=== PATIENT | female | born 1950 | race Caucasian/White ===

== ENCOUNTER → 2017-11-15 16:27 | Outpatient (CLI) | payer MEDICARE, OTHER, SELFPAY ==
--- NOTE | 2017-11-15 13:45 | MASS_PTH ---
PATIENT: ESTEFANIA COWAN LOC: [facility] U#:[id number] AGE/SX: 74/F ROOM: RE11/15/[address]: Dr. Antonio Robin MD : [id number] BED: DIS: SPEC #: [id number] RECD: 11/15/17 15:33 STATUS: STEFFI SAMMI #: [id number] MARCELLA: 11/15/17 13:[address]: Antonio Robin DEPT: SURGICAL PATHOLOGY RECD BY: Kalyan Bailey ENTERED: 11/18/17 12:29 SP TYPE: Mass OTHR DR: BLANCA Tissues: Wrist, NOS Procedures: Surgery Specimen Level IV HEADER OPERATION: Cyst excision, right wrist PRE-OP DIAGNOSIS: Right wrist mass TISSUE SUBMITTED: Mass, right wrist MICROSCOPIC DIAGNOSIS Mass, right wrist, excision: Consistent with ganglion cyst. Detached piece of reactive synovial tissue with focal calcification. SJ:rossi 11/19/17 MICROSCOPIC DESCRIPTION Slides are reviewed. GROSS DESCRIPTION Received is one container labeled with the patient's name and not further designated. The specimen consists of two pieces of samuel-white to brown soft tissue measuring in aggregate 2 x 1.5 x 0.3 cm. The specimen is totally submitted in one cassette. / SJ:rossi 11/18/17 TC:5 CPT: 39871
== END ==
PROVIDERS: Visit Provider Orthopaedic Surgery
DX: R22.31 Localized swelling, mass and lump, right upper limb (principal)
CPT/HCPCS: 88305

== ENCOUNTER → 2018-05-06 07:53 | Outpatient (CLI) | payer MEDICARE, OTHER, SELFPAY ==
--- NOTE | 2018-05-06 08:04 | CDU_ITS ---
Reason For Study: Atheroclerosis Rt. Velocities/BP Lt. Velocities/BP Prox CCA 149/36.3 cm/sec. Prox CCA 91.3/18.7 cm/sec. Mid CCA 120/24.6 cm/sec. Mid CCA 86.4/25.5 cm/sec. Dist CCA 129/27.5 cm/sec. Dist CCA 143/35.4 cm/sec. Prox ICA 119/30.4 cm/sec. Prox ICA 149/27.5 cm/sec. Mid ICA 133/37.3 cm/sec. Mid ICA 138/31.4 cm/sec. Dist ICA 142/41.3 cm/sec. Dist ICA 124/26.5 cm/sec. Rt. ICA/CCA = 1.10. Lt. ICA/CCA = 1.63. Prox ECA 125/17.7 cm/sec. Prox ECA 39.3/9.97 cm/sec. Rt. Vert. 117/25.5 cm/sec. Lt. Vert. 70.4/14.1 cm/sec. Right Extracranial There is homogeneous, smooth atherosclerotic plaque noted in the right common carotid artery. There is heterogeneous, irregular atherosclerotic plaque noted in the right internal carotid artery. There is heterogeneous, smooth atherosclerotic plaque noted in the right external carotid artery. Antegrade flow is noted in the right vertebral artery. Left Extracranial There is heterogeneous, irregular atherosclerotic plaque noted in the left common carotid artery. There is heterogeneous, smooth atherosclerotic plaque noted in the left internal carotid artery. The left external carotid artery is not well visualized. Antegrade flow is noted in the left vertebral artery. Procedure Carotid Duplex [id number]. Exam performed in department. Interpretation Summary Moderate (50-69%) stenosis right extracranial internal carotid. Moderate (50-69%) stenosis left extracranial internal carotid. Flow within the vertebral arteries is antegrade bilaterally. Ordering Physician: Pedro Gardiner Referring Physician: Ge Montero MD Performed By: Ozzie Dickens RVT and Student
--- NOTE | 2018-05-06 08:05 | AAVD_ITS ---
Reason For Study: Atherosclerosis Aorta Measurements Aorta Doppler Measurements Proximal aorta measures1.07 x 1.15cm. in cross- Peak systolic flow velocities within the proximal sectional axis. aorta measure 67.5 cm/sec. Proximal aorta measures1.08cm. in longitudinal Peak systolic flow velocities within the mid axis. aorta measure 67.5 cm/sec. Mid aorta measures0.89 x 0.89cm. in cross- Peak systolic flow velocities within the distal sectional axis. aorta measure 127 cm/sec. Mid aorta measures0.87cm. in longitudinal axis. Distal aorta measures1.01 x 1.03cm. in cross- sectional axis. Distal aorta measures1.04cm. in longitudinal axis. Left Iliac Artery Left iliac artery measures 0.48 x 0.59 cm. in the cross-sectional axis. Left iliac artery measures 0.50 cm. in the longitudinal axis. Peak systolic velocity in the right proximal iliac artery measures 150. Peak systolic velocity in the right mid iliac artery measures 234. Right Iliac Artery Right iliac artery measures 0.51 x 0.51 cm. in the cross-sectional axis. Right iliac artery measures 0.51 cm. in the longitudinal axis. Peak systolic velocity in the right proximal iliac artery measures 154. Peak systolic velocity in the right mid iliac artery measures 316. Procedure Aorta IVC Iliac vasculature or bypass grafts [id number]. Exam performed in department. Interpretation Summary 1. Aorta no aneurysm or stenosis seen. 2. Right MAMADOU severe stenosis. 3. Left iliac mild to moderate stenosis. Ordering Physician: Pedro Gardiner Referring Physician: Ge Montero MD Performed By: Ozzie Dickens RVT and Student
--- NOTE | 2018-05-06 08:05 | ADU_ITS ---
Reason For Study: Atherosclerosis Right Velocities Left Velocities Ext. Iliac Artery, dist = 182 cm./sec. Ext Iliac Artery, dist = 219 cm./sec. Common Femoral Artery, mid = 174 cm./sec. [employer] Inflow artery = 221 cm/sec Supf Femoral Artery, prox = 114 cm./sec. Prox Anast = 223 cm/sec Supf Femoral Artery, mid = 413 cm./sec. Prox Graft = 75.6 cm/sec Supf Femoral Artery, dist. = 90.4 cm./sec. Mid Graft = 66.8 cm/sec Profunda Femoral Artery = 366 cm./sec. Distal Graft = 69.2 cm/sec Popliteal Artery, prox. = 50.3 cm./sec. Disal Anast = 64.5 cm/sec. Popliteal Artery, mid = 48.3 cm./sec. Profunda Femoral Artery = 170 cm./sec. Popliteal Artery, dist = 63.3 cm./sec. Pop A Outflow artery = 138 cm/sec. Post. Tibial Artery, prox = 50.3 cm./sec. Popliteal Artery, mid = 140 cm./sec. Post. Tibial Artery, mid = 60.5 cm./sec. Popliteal Artery, distal = 94.3 cm./sec. Post. Tibial Artery, dist = 20.2 cm./sec. Post. Tibial Artery, prox = 73.9 cm./sec. Peroneal Artery, prox = 38.8 cm./sec. Post Tibial Artery, mid = 79.6 cm./sec. Peroneal Artery, mid = 22.6 cm./sec. Post Tibial Artery, dist. = 79.6 cm./sec. Peroneal Artery,dist = 18.3 cm./sec. Peroneal Artery, prox = 46 cm./sec. Ant. Tibial Artery, prox = 44 cm./sec. Peroneal Artery, mid = 45.6 cm./sec. Ant. Tibial Artery, mid = 38.8 cm./sec. Peroneal Artery,dist. = 36.9 cm./sec. Ant. Tibial Artery, dist = 36.7 cm./sec. Ant.Tibial Artery, prox = 103 cm./sec. Ant Tibial Artery, mid = 59.7 cm./sec. Ant. Tibial Artery, distal = 53.8 cm./sec. Procedure Exam performed in department. Interpretation Summary 1 .Right SFA severe stenosis and biphasic below throughout. 2. Left no stenosis and triphasic flow throughout. Ordering Physician: Pedro Gardiner Referring Physician: Ge Montero MD Performed By: Ozzie Dickens RVT and Student
--- NOTE | 2018-05-07 12:06 | LEAS ---
Arterial Study - Arterial Study Arterial Study: Date of scan 05/06/[address] Gardiner History: Patient with a history of left femoropopliteal bypass graft. Interpretation: Right lower extremity with slightly decreased waveform noted at the ankle duplex shows more of a biphasic waveform noted at the ankle with, LAST is 0.63 the PT and 0.67 of the DP. Next Left lower extremity with a normal pulsatile waveform noted at the ankle. Duplex shows triphasic flow the PT with an LAST 1.07 and biphasic flow noted in the DP with an LAST 0.91. Impression: 1. Right lower extremity with moderate arterial occlusive disease with an LAST 0.67. 2. Left lower extremity with no evidence of significant arterial occlusive disease at rest with an LAST 1.07
== END ==
PROVIDERS: Family Provider Family Medicine; PCP Family Medicine; Referring Provider Surgery Vascular Surgery; Visit Provider Surgery Vascular Surgery
DX: I70.213 Atherosclerosis of native arteries of extremities with intermittent claudication, bilateral legs (principal); I65.23 Occlusion and stenosis of bilateral carotid arteries; I77.1 Stricture of artery; I25.10 Atherosclerotic heart disease of native coronary artery without angina pectoris; E78.00 Pure hypercholesterolemia, unspecified; I10 Essential (primary) hypertension; M19.90 Unspecified osteoarthritis, unspecified site; Z87.891 Personal history of nicotine dependence
CPT/HCPCS: 93880; 93922; 93925; 93978

== ENCOUNTER → 2019-07-07 07:48 | Outpatient (CLI) | payer MEDICARE, OTHER, SELFPAY ==
--- NOTE | 2019-07-07 07:52 | CDU_ITS ---
Reason For Study: carotid stenosis Rt. Velocities/BP Lt. Velocities/BP Prox CCA 108.6/22.6 cm/sec. Prox CCA 93.7/23.4 cm/sec. Mid CCA 113.9/25.2 cm/sec. Mid CCA 83.8/22.3 cm/sec. Dist CCA 96.9/26.5 cm/sec. Dist CCA 98.1/27.8 cm/sec. Prox ICA 73.4/20.0 cm/sec. Prox ICA 162.9/40.7 cm/sec. Mid ICA 139.9/36.9 cm/sec. Mid ICA 132.1/40.7 cm/sec. Dist ICA 137.5/37.1 cm/sec. Dist ICA 137.5/40.7 cm/sec. Rt. ICA/CCA = 1.2. Lt. ICA/CCA = 1.9. Prox ECA 142.5/13.4 cm/sec. Prox ECA 42.1/9.1 cm/sec. Rt. Vert. 50.4/10.7 cm/sec. Lt. Vert. 91.9/15.2 cm/sec. Right Extracranial There is homogeneous, smooth atherosclerotic plaque noted in the right common carotid artery. There is heterogeneous, irregular atherosclerotic plaque noted in the right internal carotid artery. There is heterogeneous, irregular atherosclerotic plaque noted in the right external carotid artery. Antegrade flow is noted in the right vertebral artery. Left Extracranial There is heterogeneous, irregular atherosclerotic plaque noted in the left common carotid artery. There is heterogeneous, irregular atherosclerotic plaque noted in the left internal carotid artery. The left external carotid artery is not well visualized. Antegrade flow is noted in the left vertebral artery. Procedure Carotid Duplex [id number]. The exam was diagnostic. Exam performed in department. Interpretation Summary Moderate (50-69%) stenosis right extracranial internal carotid. Moderate (50-69%) stenosis left extracranial internal carotid. Flow within the vertebral arteries is antegrade bilaterally. Ordering Physician: Pedro Gardiner Performed By: Giacomo Dickens RVT
--- NOTE | 2019-07-07 07:52 | ART_ITS ---
Reason For Study: atherosclerosis Procedure A bilateral lower extremity continuous wave Doppler with analog waveform analysis and ankle brachial indexes. Left Segmental Pressures Left brachial= 137mmHg. Left posterior tibial artery = 140mmHg. Left dorsalis pedis artery = 126mmHg. The left dorsalis pedis waveforms are triphasic. The left posterior tibial artery waveforms are triphasic. Right Segmental Pressures Right brachial= 130mmHg. Right posterior tibial artery = 79mmHg. Right dorsalis pedis artery = 83mmHg. The right posterior tibial artery waveforms are biphasic. The right dorsalis pedis waveforms are biphasic. Indices The right ankle brachial index by the dorsalis pedis is .61. The right ankle brachial index by the posterior tibial artery is .58. The left ankle brachial index by the dorsalis pedis is .92. The left ankle brachial index by the posterior tibial artery is 1.02. Interpretation Summary 2. right leg moderate disease and biphasic flow and LAST 0.61 2. Left normal with triphasic flow and LAST 1.02. Ordering Physician: Pedro Gardiner Performed By: JORDAN PIERSON Laura
--- NOTE | 2019-07-07 07:52 | ADUL_ITS ---
Reason For Study: atherosclerosis Right Velocities Ext. Iliac Artery, dist = 214.1 cm./sec. Common Femoral Artery, mid = 170 cm./sec. Supf Femoral Artery, prox = 198.5 cm./sec. Supf Femoral Artery, mid = 276.8 cm./sec. Supf Femoral Artery, dist. = 65.8 cm./sec. Profunda Femoral Artery = 299.3 cm./sec. Popliteal Artery, prox. = 62.2 cm./sec. Popliteal Artery, mid = 42.5 cm./sec. Popliteal Artery, dist = 49.9 cm./sec. Post. Tibial Artery, prox = 36.4 cm./sec. Post. Tibial Artery, mid = 68.3 cm./sec. Post. Tibial Artery, dist = 20.4 cm./sec. Peroneal Artery, prox = 41.3 cm./sec. Peroneal Artery, mid = 30.2 cm./sec. Peroneal Artery,dist = 21.6 cm./sec. Ant. Tibial Artery, prox = 47.4 cm./sec. Ant. Tibial Artery, mid = 29.0 cm./sec. Ant. Tibial Artery, dist = 51.0 cm./sec. Procedure The exam was diagnostic. Exam performed in department. Interpretation Summary 1. Right SFa moderate to severe stenosis with biphasic flow noted below this level. Ordering Physician: Pedro Gardiner Performed By: Giacomo Dickens RVT
--- NOTE | 2019-07-07 07:53 | AAVD_ITS ---
Reason For Study: HTN, atherosclerosis Aorta Measurements Aorta Doppler Measurements Proximal aorta measures.94 x 1.08cm. in cross- Peak systolic flow velocities within the proximal sectional axis. aorta measure 72.1 cm/sec. Proximal aorta measures.93cm. in longitudinal Peak systolic flow velocities within the mid aorta axis. measure 130.8 cm/sec. Mid aorta measures.74 x .79cm. in cross-sectional Peak systolic flow velocities within the distal axis. aorta measure 130.8 cm/sec. Mid aorta measures.71cm. in longitudinal axis. Distal aorta measures.72 x .77cm. in cross- sectional axis. Distal aorta measures.71cm. in longitudinal axis. Left Iliac Artery Left iliac artery measures .51 x .56 cm. in the cross-sectional axis. Left iliac artery measures .52 cm. in the longitudinal axis. Peak systolic velocity in the left iliac artery measures 234.8 cm/sec. Right Iliac Artery Right iliac artery measures .48 x .42 cm. in the cross-sectional axis. Right iliac artery measures .51 cm. in the longitudinal axis. Peak systolic velocity in the right iliac artery measures 119.8 cm/sec. Procedure The exam was diagnostic. Exam performed in department. Interpretation Summary 1. No aortic aneurysm or stenosis. 2. Right iliac normal 3. Left common iliac with moderate stenosis. Ordering Physician: Pedro Gardiner Performed By: Giacomo Dickens RVT
== END ==
PROVIDERS: Family Provider Family Medicine; PCP Family Medicine; Referring Provider Surgery Vascular Surgery; Visit Provider Surgery Vascular Surgery
DX: I70.213 Atherosclerosis of native arteries of extremities with intermittent claudication, bilateral legs (principal); I77.1 Stricture of artery; I65.23 Occlusion and stenosis of bilateral carotid arteries; I25.10 Atherosclerotic heart disease of native coronary artery without angina pectoris; Z87.891 Personal history of nicotine dependence; E78.00 Pure hypercholesterolemia, unspecified; I10 Essential (primary) hypertension; M19.90 Unspecified osteoarthritis, unspecified site
CPT/HCPCS: 93880; 93922; 93926; 93978

== ENCOUNTER → 2020-03-31 08:07 | Outpatient (CLI) | payer MEDICARE, OTHER, SELFPAY ==
--- NOTE | 2020-03-31 08:12 | AAVD_ITS ---
Reason For Study: Atherosclerosis Aorta Measurements Aorta Doppler Measurements Proximal aorta measures0.98 x 0.96cm. in cross- Peak systolic flow velocities within the proximal sectional axis. aorta measure 56.4 cm/sec. Proximal aorta measures0.92cm. in longitudinal Peak systolic flow velocities within the mid aorta axis. measure 58.1 cm/sec. Mid aorta measures0.83 x 0.84cm. in cross- Peak systolic flow velocities within the distal sectional axis. aorta measure 94.2 cm/sec. Mid aorta measures0.92cm. in longitudinal axis. Distal aorta measures0.64 x 0.68cm. in cross- sectional axis. Distal aorta measures0.69cm. in longitudinal axis. Left Iliac Artery Left iliac artery measures 0.50 x 0.53 cm. in the cross-sectional axis. Left iliac artery measures 0.52 cm. in the longitudinal axis. Peak systolic velocity in the left iliac artery measures 215.4 cm/sec. Right Iliac Artery Right iliac artery measures 051 x 0.50 cm. in the cross-sectional axis. Right iliac artery measures 0.49 cm. in the longitudinal axis. Peak systolic velocity in the right iliac artery measures 134.4 cm/sec. Procedure Aorta IVC Iliac vasculature or bypass grafts [id number]. Exam performed in department. Interpretation Summary No aortoiliac aneurysm or stenosis. Ordering Physician: Pedro Gardiner Referring Physician: Ge Montero MD Performed By: Rere Miller RVT
--- NOTE | 2020-03-31 08:12 | ADUL_ITS ---
Reason For Study: S/P Angioplasty Right Velocities Ext. Iliac Artery, dist = 111.5 cm./sec. Common Femoral Artery, mid = 182.7 cm./sec. Supf Femoral Artery, prox = 326.8 cm./sec. Supf Femoral Artery, mid = 132.8 cm./sec. Supf Femoral Artery, dist. = 97.4 cm./sec. Profunda Femoral Artery = 400.8 cm./sec. Popliteal Artery, prox. = 89.4 cm./sec. Popliteal Artery, mid = 60.8 cm./sec. Popliteal Artery, dist = 64.1 cm./sec. Post. Tibial Artery, prox = 47.4 cm./sec. Post. Tibial Artery, mid = 48.2 cm./sec. Post. Tibial Artery, dist = 22.3 cm./sec. Peroneal Artery, prox = 31.9 cm./sec. Peroneal Artery, mid = 34.4 cm./sec. Peroneal Artery,dist = 18.3 cm./sec. Ant. Tibial Artery, prox = 44.3 cm./sec. Ant. Tibial Artery, mid = 47.9 cm./sec. Ant. Tibial Artery, dist = 43.6 cm./sec. Procedure Exam performed in department. Interpretation Summary Right leg with no stenosis and triphasic flow noted. Ordering Physician: Pedro Gardiner Referring Physician: Ge Montero MD Performed By: Rere Miller RVT
--- NOTE | 2020-03-31 08:12 | ART_ITS ---
Reason For Study: S/P Angioplasty Procedure A bilateral lower extremity continuous wave Doppler with analog waveform analysis and ankle brachial indexes. Left Segmental Pressures Left brachial= 132mmHg. Left posterior tibial artery = 117mmHg. Left dorsalis pedis artery = 117mmHg. Left digit = 68 mmHg. The left dorsalis pedis waveforms are triphasic. The left posterior tibial artery waveforms are triphasic. Right Segmental Pressures Right brachial= 130mmHg. Right posterior tibial artery = 104mmHg. Right dorsalis pedis artery = 108mmHg. Right digit = 73 mmHg. The right dorsalis pedis waveforms are biphasic. The right posterior tibial artery waveforms are biphasic. Indices The right ankle brachial index by the dorsalis pedis is 0.82. The right ankle brachial index by the posterior tibial artery is 0.79. The right digital-brachial index is 0.55. The left ankle brachial index by the dorsalis pedis is 0.89. The left ankle brachial index by the posterior tibial artery is 0.89. The left digital-brachial index is 0.52. Interpretation Summary Right biphasic flow and left triphasic flow with LAST 0.82 and 0.89. With DBI 0.55 and 0.52. Ordering Physician: Pedro Gardiner Referring Physician: Ge Montero MD Performed By: Rere Miller RVT and Student
== END ==
PROVIDERS: PCP Family Medicine; Referring Provider Surgery Vascular Surgery; Visit Provider Surgery Vascular Surgery
DX: I70.213 Atherosclerosis of native arteries of extremities with intermittent claudication, bilateral legs (principal); I65.23 Occlusion and stenosis of bilateral carotid arteries
CPT/HCPCS: 93922; 93926; 93978

== ENCOUNTER → 2021-05-10 08:33 | Outpatient (CLI) | payer MEDICARE, OTHER, SELFPAY ==
--- NOTE | 2021-05-10 08:38 | AAVD_ITS ---
Reason For Study: S/P Iliac angioplasty/stent Aorta Measurements Aorta Doppler Measurements Proximal aorta measures.96 x .96cm. in cross- Peak systolic flow velocities within the proximal sectional axis. aorta measure 65.3 cm/sec. Proximal aorta measures.94cm. in longitudinal Peak systolic flow velocities within the mid aorta axis. measure 65.3 cm/sec. Mid aorta measures.92 x .92cm. in cross-sectional Peak systolic flow velocities within the distal axis. aorta measure 70.5 cm/sec. Mid aorta measures.92cm. in longitudinal axis. Distal aorta measures.63 x .61cm. in cross- sectional axis. Distal aorta measures.59cm. in longitudinal axis. Left Iliac Artery Left iliac artery measures .47 x .61 cm. in the cross-sectional axis. Left iliac artery measures .47 cm. in the longitudinal axis. Peak systolic velocity in the left iliac artery measures 185.0 cm/sec. Right Iliac Artery Right iliac artery measures .46 x .5 cm. in the cross-sectional axis. Right iliac artery measures .48 cm. in the longitudinal axis. Peak systolic velocity in the right iliac artery measures 122.2 cm/sec. Procedure Aorta IVC Iliac vasculature or bypass grafts [id number]. The exam was diagnostic. Exam performed in department. VL/Abd Aortic/IVC Duplex scan Interpretation Summary No aorta and iliac stenosis or aneurysm. Ordering Physician: Pedro Gardiner Performed By: Giacomo Dickens RVT
--- NOTE | 2021-05-10 08:38 | ART_ITS ---
Reason For Study: atherosclerosis w/claudication, angioplasty Procedure A bilateral lower extremity continuous wave Doppler with analog waveform analysis and ankle brachial indexes. Left Segmental Pressures Left brachial= 152mmHg. Left posterior tibial artery = 143mmHg. Left dorsalis pedis artery = 125mmHg. Left digit = 76 mmHg. The left dorsalis pedis waveforms are biphasic. The left posterior tibial artery waveforms are biphasic. Right Segmental Pressures Right brachial= 146mmHg. Right posterior tibial artery = 79mmHg. Right dorsalis pedis artery = 70mmHg. Right digit = 57 mmHg. The right dorsalis pedis waveforms are monophasic. The right posterior tibial artery waveforms are monophasic. Indices The right ankle brachial index by the dorsalis pedis is .46. The right ankle brachial index by the posterior tibial artery is .52. The right digital-brachial index is .38. The left ankle brachial index by the dorsalis pedis is .82. The left ankle brachial index by the posterior tibial artery is .94. The left digital-brachial index is .5. VL/Ankle Brachial Index Interpretation Summary Right with biphasic flow and LAST 0.52. Left leg triphasic flow and LAST 0.94. Ordering Physician: Pedro Gardiner Performed By: Giacomo Dickens RVT
--- NOTE | 2021-05-10 08:38 | ADUL_ITS ---
Reason For Study: SFA, Popliteal, and TUBE SORTER angioplasty Right Velocities Ext. Iliac Artery, dist = 198.8 cm./sec. Common Femoral Artery, mid = 168.0 cm./sec. Supf Femoral Artery, prox = 284.0 cm./sec. Supf Femoral Artery, mid = 33.6 cm./sec. Supf Femoral Artery, dist. = 69.9 cm./sec. Area in mid/dist SFA with no flow. Branch seen feeding Dist SFA with a velocity of 101.8 cm/s in branch. Profunda Femoral Artery = 411.5 cm./sec. Popliteal Artery, mid = 32.5 cm./sec. Post. Tibial Artery, prox = 28.1 cm./sec. Post. Tibial Artery, mid = 24.8 cm./sec. Post. Tibial Artery, dist = 27.0 cm./sec. Peroneal Artery, prox = 40.2 cm./sec. Peroneal Artery, mid = 30.3 cm./sec. Peroneal Artery,dist = 19.3 cm./sec. Ant. Tibial Artery, prox = 32.5 cm./sec. Ant. Tibial Artery, mid = 55.6 cm./sec. Ant. Tibial Artery, dist = 16.0 cm./sec. /US Art Duplex Unilat Lower Ext Interpretation Summary Right distal femoral occluded. Ordering Physician: Pedro Gardiner Performed By: Giacomo Dickens RVT
--- NOTE | 2021-05-10 08:39 | CDU_ITS ---
Reason For Study: carotid stenosis Rt. Velocities/BP Lt. Velocities/BP Prox CCA 121.7/27.8 cm/sec. Prox CCA 77.7/18.8 cm/sec. Mid CCA 106.0/30.4 cm/sec. Mid CCA 70.4/18.8 cm/sec. Dist CCA 90.4/26.5 cm/sec. Dist CCA 118.3/37.2 cm/sec. Prox ICA 137.5/27.9 cm/sec. Prox ICA 167.4/24.8 cm/sec. Mid ICA 113.8/37.1 cm/sec. Mid ICA 114.8/33.6 cm/sec. Dist ICA 124.7/40.7 cm/sec. Dist ICA 136.7/38.0 cm/sec. Rt. ICA/CCA = 1.3. Lt. ICA/CCA = 2.4. Prox ECA 125.6/14.7 cm/sec. Prox ECA 80.2/15.1 cm/sec. Rt. Vert. 52.2/15.4 cm/sec. Lt. Vert. 81.9/13.8 cm/sec. Right Extracranial There is heterogeneous, irregular atherosclerotic plaque noted in the right common carotid artery. There is heterogeneous, irregular atherosclerotic plaque noted in the right internal carotid artery. There is heterogeneous, irregular atherosclerotic plaque noted in the right external carotid artery. Antegrade flow is noted in the right vertebral artery. Left Extracranial There is heterogeneous, irregular atherosclerotic plaque noted in the left common carotid artery. There is heterogeneous, irregular atherosclerotic plaque noted in the left internal carotid artery. The left external carotid artery is not well visualized. Antegrade flow is noted in the left vertebral artery. Procedure Carotid Duplex [id number]. This is a Carotid Duplex examination using B-mode, color flow and specral Doppler. The exam was diagnostic. Exam performed in department. VL/Carotid Duplex Ultrasound Interpretation Summary Moderate (50-69%) stenosis right extracranial internal carotid. Moderate (50-69 %) stenosis left extracranial internal carotid. Flow within the vertebral arteries is antegrade bilaterally. Ordering Physician: Pedro Gardiner Performed By: Giacomo Dickens RVT
== END ==
PROVIDERS: PCP Family Medicine; Referring Provider Surgery Vascular Surgery; Visit Provider Surgery Vascular Surgery
DX: Z48.812 Encounter for surgical aftercare following surgery on the circulatory system (principal); I70.213 Atherosclerosis of native arteries of extremities with intermittent claudication, bilateral legs; I65.23 Occlusion and stenosis of bilateral carotid arteries
CPT/HCPCS: 93880; 93922; 93926; 93978

== ENCOUNTER → 2022-05-23 | Outpatient (CLI) | payer MEDICARE, OTHER, SELFPAY ==
--- NOTE | 2022-05-23 08:38 | ART_ITS ---
Reason For Study: ANGIOPLASTY Procedure A bilateral lower extremity continuous wave Doppler with analog waveform analysis and ankle brachial indexes. Hx: PT presents with S/P Angioplasty RLE HTN, HLD, Former smoker, LLE Bypass. Left Segmental Pressures Left brachial= 156mmHg. Left posterior tibial artery = 132mmHg. Left dorsalis pedis artery = 134mmHg. Left digit = 85 mmHg. The left posterior tibial artery waveforms are triphasic. The left dorsalis pedis waveforms are biphasic. Right Segmental Pressures Right brachial= 152mmHg. Right posterior tibial artery = 76mmHg. Right dorsalis pedis artery = 73mmHg. Right digit = 54 mmHg. The right posterior tibial artery waveforms are monophasic. The right dorsalis pedis waveforms are monophasic. Indices The right ankle brachial index by the posterior tibial artery is 0.49. The right ankle brachial index by the dorsalis pedis is 0.47. The right digital-brachial index is 0.35. The left ankle brachial index by the posterior tibial artery is 0.85. The left ankle brachial index by the dorsalis pedis is 0.86. The left digital-brachial index is 0.54. VL/Ankle Brachial Index Interpretation Summary Right moderate disease and monophasic flow and LAST 0.49. Left normal at rest wi th triphasic flow and LAST 0,86. Ordering Physician: Pedro Gardiner Referring Physician: Ge Montero MD Performed By: Khari Graham RVT
--- NOTE | 2022-05-23 08:38 | AAVD_ITS ---
Reason For Study: ANGIOPLASTY Aorta Measurements Aorta Doppler Measurements Proximal aorta measures1.26 x 1.26cm. in cross- Peak systolic flow velocities within the proximal sectional axis. aorta measure 56.0 cm/sec. Proximal aorta measures1.35cm. in longitudinal Peak systolic flow velocities within the mid aorta axis. measure 57.8 cm/sec. Mid aorta measures1.24 x 1.27cm. in cross- Peak systolic flow velocities within the distal sectional axis. aorta measure 50.6 cm/sec. Mid aorta measures1.31cm. in longitudinal axis. Distal aorta measures0.93 x 0.96cm. in cross- sectional axis. Distal aorta measures0.99cm. in longitudinal axis. Left Iliac Artery Left iliac artery measures 0.68 x 0.75 cm. in the cross-sectional axis. Left iliac artery measures 0.59 cm. in the longitudinal axis. Peak systolic velocity in the left iliac artery measures 81.4 cm/sec. Right Iliac Artery Right iliac artery measures 0.58 x 0.60 cm. in the cross-sectional axis. Right iliac artery measures 0.71 cm. in the longitudinal axis. Peak systolic velocity in the right iliac artery measures 117.6 cm/sec. Procedure Aorta IVC Iliac vasculature or bypass grafts 09382. The exam was diagnostic. Exam performed in department. VL/Abd Aortic/IVC Duplex scan Interpretation Summary No evidence aortoiliac stenosis or aneurysm. Ordering Physician: Pedro Gardiner Referring Physician: Ge Montero Performed By: Khari Graham, RVT
--- NOTE | 2022-05-23 08:38 | ADUL_ITS ---
Reason For Study: Angioplasty Right Velocities Ext. Iliac Artery, dist = 233.5 cm./sec. Common Femoral Artery, mid = 172.1 cm./sec. Supf Femoral Artery, prox = 238.9 cm./sec. Supf Femoral Artery, mid = 210.9 cm./sec. Area in mid/dist SFA with trickle/stenosis flow. Branchs seen feeding Dist SFA with a velocity of 97.8 cm/s in branch. Supf Femoral Artery, dist. = 62.6 cm./sec. Profunda Femoral Artery = 495.4 cm./sec. Popliteal Artery, mid = 40.9 cm./sec. Post. Tibial Artery, prox = 26.5 cm./sec. Post. Tibial Artery, mid = 15.8 cm./sec. Post. Tibial Artery, dist = 21.5 cm./sec. Peroneal Artery, prox = 32.2 cm./sec. Peroneal Artery, mid = 18.7 cm./sec. Peroneal Artery,dist = 15.1 cm./sec. Ant. Tibial Artery, prox = 18.2 cm./sec. Ant. Tibial Artery, mid = 34.3 cm./sec. Ant. Tibial Artery, dist = 18.7 cm./sec. Procedure The exam was diagnostic. Exam performed in department. /US Art Duplex Unilat Lower Ext Interpretation Summary Probable right mid to distal femoral occlussion and severe profunda stenosis. Ordering Physician: Pedro Gardiner Referring Physician: Ge Montero MD Performed By: Khari Graham RVT
--- NOTE | 2022-05-23 08:39 | CDU_ITS ---
Reason For Study: STENOSIS Rt. Velocities/BP Lt. Velocities/BP Prox CCA 128.0/22.6 cm/sec. Prox CCA 83.0/14.2 cm/sec. Mid CCA 106.7/12.3 cm/sec. Mid CCA 62.1/17.9 cm/sec. Dist CCA 65.8/17.9 cm/sec. Dist CCA 69.5/20.4 cm/sec. Prox ICA 89.1/17.9 cm/sec. Prox ICA 145.4/35.8 cm/sec. Mid ICA 101.6/30.3 cm/sec. Mid ICA 93.0/25.4 cm/sec. Dist ICA 99.7/26.7 cm/sec. Dist ICA 105.8/25.4 cm/sec. Rt. ICA/CCA = 1.0. Lt. ICA/CCA = 2.3. Prox ECA 96.5/5.6 cm/sec. Prox ECA 121.6/32.1 cm/sec. Rt. Vert. 36.3/9.2 cm/sec. Lt. Vert. 72.4/13.1 cm/sec. Right Extracranial There is heterogeneous, irregular atherosclerotic plaque noted in the right common carotid artery. There is heterogeneous, irregular atherosclerotic plaque noted in the right internal carotid artery. There is heterogeneous, irregular atherosclerotic plaque noted in the right external carotid artery. Antegrade flow is noted in the right vertebral artery. Left Extracranial There is heterogeneous, irregular atherosclerotic plaque noted in the left common carotid artery. There is heterogeneous, irregular atherosclerotic plaque noted in the left internal carotid artery. There is heterogeneous, irregular atherosclerotic plaque noted in the left external carotid artery. Antegrade flow is noted in the left vertebral artery. Procedure Carotid Duplex 44693. This is a Carotid Duplex examination using B-mode, color flow and specral Doppler. The exam was diagnostic. Exam performed in department. VL/Carotid Duplex Ultrasound Interpretation Summary Mild (<50%) stenosis right extracranial internal carotid. Moderate (50-69%) inocente nosis left extracranial internal carotid. Flow within the vertebral arteries is antegrade bilaterally. Ordering Physician: Pedro Gardiner Referring Physician: Ge Montero Performed By: Khari Graham RVT
== END | disposition home or self-care (01) ==
LOC: CVS 08:35
PROVIDERS: PCP Family Medicine; Referring Provider Surgery Vascular Surgery; Visit Provider Surgery Vascular Surgery
DX: I65.23 Occlusion and stenosis of bilateral carotid arteries (principal); I70.213 Atherosclerosis of native arteries of extremities with intermittent claudication, bilateral legs; Z48.812 Encounter for surgical aftercare following surgery on the circulatory system
CPT/HCPCS: 93880; 93922; 93926; 93978

== ENCOUNTER 2023-02-01 06:28 | Day surgery (SDC) | payer MEDICARE, OTHER, SELFPAY ==
--- NOTE | 2023-01-31 | COLBX_PTH ---
PATIENT: ESTEFANIA COWAN LOC: EN U#:[id number] AGE/SX: 72/F ROOM: RE02/01/[address]: Dr. Baudilio Pike MD : 1950 BED: DIS: 02/01/2023 SPEC #: [id number] RECD: 02/01/23 10:13 STATUS: STEFFI RELorna #: [id number] MARCELLA: 01/31/23 00:[address]: Baudilio Pike DEPT: SURGICAL PATHOLOGY RECD BY: Orlando Cheng ENTERED: 02/01/23 10:14 SP TYPE: COLON BX OTHR DR: Dr. Ge Montero MD Tissues: Rectum, NOS Procedures: Surgery Specimen Level IV HEADER OPERATION: Colonoscopy with polypectomy PRE-OP DIAGNOSIS: Blood in stool, change in bowel habit TISSUE SUBMITTED: Rectal polyp MICROSCOPIC DIAGNOSIS Rectal polyp, polypectomy: Hyperplastic polyp. SJ:rossi 02/04/2023 MICROSCOPIC DESCRIPTION Slides are reviewed. GROSS DESCRIPTION Received in fixative is one container labeled with the patient's name and designated rectal polyp. The specimen consists of one irregular fragment of light samuel soft tissue that measures 0.5 x 0.3 x 0.1 cm. The specimen is totally submitted in one cassette. / AM:rossi 02/03/2023 TC:1 CPT: 09778
[2023-02-01] VITALS (10 sets, daily range): BP systolic 104–141; BP diastolic 50–62; PULSE 81–92; RESP 16–19; TEMP 36–36.4; O2SAT 92–99; BMI 27.1
[2023-02-01] MEDS: Lactated Ringers 1,000 ML 15 ML IV (06:51)
--- NOTE | 2023-02-01 06:54 | PCM.HP.BLA ---
History and Physical Date of Admission: 02/01/23 Visit Reasons: COLONOSCOPY Chief Complaint: colonoscopy Is patient in pain?: No Allergies No Known Allergies Allergy (Verified 01/22/23 13:58) Medications carvedilol 12.5 mg tablet 12.5 mg PO BID 01/22/23 [History Confirmed 01/22/23] clopidogrel 75 mg tablet 75 mg PO DAILY 01/22/23 [History Confirmed 01/22/23] lisinopril 5 mg tablet 5 mg PO DAILY 01/22/23 [History Confirmed 01/22/23] rosuvastatin 20 mg tablet 20 mg PO DAILY 01/22/23 [History Confirmed 01/22/23] spironolactone 25 mg tablet 25 mg PO DAILY 01/22/23 [History Confirmed 01/22/23] PFS Social History (Updated 01/22/23 @ 13:57 by Gayla Lozano) Smoking Status: Former smoker alcohol intake: never substance use type: does not use HPI HPI HPI: 72-year-old female is being referred by Dr. Ge Montero for surgical consultation regarding possible colonoscopy and a written compromise surgical consult recommendations will return to him. The patient had presented to him on January 14, 2023 with a 1 week history of variable abdominal pain. Noted to be sharp in the right lower quadrant pain it was improving at the time of the visit. Her most recent colonoscopy was 2013. Among her other medications she is on clopidogrel and aspirin therapy States that its been at least 9 years since her previous colonoscopy. She claims that more recently she has had alternating thinner diameter stools occasionally alternating with some more normal stools. She had 1 episode of rectal bleeding with pus she says remotely she was diagnosed as having diverticulitis but she has not had any recent imaging. She is on aspirin and clopidogrel therapy because of peripheral arterial occlusive disease. She says that Dr. Pedro Gardiner would like to do additional surgery on her. She states that her veins will not support the type of leg bypass procedure that he would like to do. The patient did stop smoking a year ago February. She has gained some slight weight. She is denying any current abdominal pain. She is denying any current rectal bleeding. She does state that if she gets a scratch on her arm etc. that she bleeds quite readily ROS General General: No weight change, appetite, fatigue, colon cancer, breast cancer or weakness HEENT HEENT: No difficulty swallowing, eye injury, eye surgery, swollen glands or hoarseness Endo Endocrine: Yes diabetes mellitus; No thyroid disease, thyroid cancer, Hair loss, heat intolerance or cold intolerance Skin Skin: No rash or changing moles Musc Musculoskeletal: Yes back problems, arthritis and rheumatoid arthritis; No gout or joint pain Cardio Cardiovascular: Yes heart disease; No murmur, pacemaker, atrial fibrillation, high blood pressure, heart attack, heart stent, palpitations, shortness of breat with exertion or chest pain Psych Psychiatric: No depression, anxiety or hearing voices Resp Respiratory: No shortness of breath, No sleep apnea, No cough, No COPD, No asthma, No emphysema and No wheezing Gastro Gastrointestinal: Yes abdominal pain, No nausea or vomiting, Yes diarrhea, No constipation, Yes blood in stool, No acid reflux, Yes hemorrhoids, No ulcers, No gallbladder problem and No black,tarry stools Yaniv Hematologic: Yes blood thinners, No blood disorders, No bleeding, No anemia and No blood clots Neuro Neurologic: No system reviewed and no additional complaints, except as documented, No as per HPI, No abnormal gait, No abnormal hearing, No abnormal movements, No abnormal speech, No behavioral changes, No burning sensations, No confusion, No convulsions, No disequilibrium, No dizziness, No localized weakness, No frequent falls, No headache(s), No lack of coordination, No loss of vision, No memory loss, No numbness, No other visual disturbances, No radicular pain, No restless legs, No sensory deficit, No syncope, No tingling, No tremor(s), No weakness and No other Exam Const General: cooperative, comfortable and no acute distress Nutritional Appearance: overweight Orientation: alert, awake and oriented x3 HENMT Head: normal to inspection Eyes General: appearance normal, both eyes and all related structures Neck Neck: normal visual inspection Chest Other: Increased anterior posterior diameter Resp Effort & Inspection: normal respiratory effort Auscultation: clear to auscultation bilaterally Cardio Rate: regular rate Rhythm: regular rhythm GI Other: Soft, slightly distended, nontender, normal bowel sounds, no hepatosplenomegaly or focal mass Musc Cervical Spine: normal cervical lordosis Skin General: no rashes or lesions noted Neuro General: patient alert, patient awake and patient oriented x3 Extrem General: no calf tenderness Psych Appearance: grossly normal Assessment and Plan Assessment and Plan (1) Blood in stool: Status: Acute (2) Change in bowel habit: Status: Acute Plan Change of bowel habit and episode of rectal bleeding. She states that she has had a previous history of colon polyps. No colonoscopy for at least 9 years. I propose for her colonoscopy with possible biopsy or polypectomy as indicated. We will have her hold her clopidogrel for 2 days preprocedure though she can remain on her low-dose aspirin. She is aware of the technique, benefit, risk, alternatives. I suspect that it is possible that her stool caliber change more recently with episode of rectal bleeding and abdominal pain may have been a bout of diverticulitis. Some of those symptoms have improved. I do recommend that we pursue the colonoscopy prior to her pursuing her more advanced vascular surgical intervention. She has had an opportunity ask and questions answered. I appreciate the opportunity of assisting with her surgical care. Copy: Dr. Ge Pike M.D., F.A.C.S I have examined the patient and the H&P has been reviewed. There are no clinical changes since date of exam. Baudilio Pike M.D., F.A.C.S.
[2023-02-01 07:18] LABS: Bedside Glucose 199 mg/dL (74-106)
--- NOTE | 2023-02-01 08:05 | OP.COLON_ITS ---
Patient Name: Liliana Garnett Procedure Date: 02/01/2023 7:27 AM Date of : 1950 Age: 72 Procedure: Colonoscopy Indications: Rectal bleeding Providers: Baudilio Pike MD Patient Profile: This is a 72 year old female. Last Colonoscopy: 10 years ago. Complications: No immediate complications. Procedure: Pre-Anesthesia Assessment: - Prior to the procedure, a History and Physical was performed, and patient medications and allergies were reviewed. The patient's tolerance of previous anesthesia was also reviewed. The risks and benefits of the procedure and the sedation options and risks were discussed with the patient. All questions were answered, and informed consent was obtained. Prior Anticoagulants: The patient has taken Plavix (clopidogrel), last dose was 2 days prior to procedure. ASA Grade Assessment: III - A patient with severe systemic disease. After reviewing the risks and benefits, the patient was deemed in satisfactory condition to undergo the procedure. - Prior to the procedure, a History and Physical was performed, and patient medications and allergies were reviewed. The patient's tolerance of previous anesthesia was also reviewed. The risks and benefits of the procedure and the sedation options and risks were discussed with the patient. All questions were answered, and informed consent was obtained. Prior Anticoagulants: The patient has taken Plavix (clopidogrel), last dose was 2 days prior to procedure. ASA Grade Assessment: III - A patient with severe systemic disease. After reviewing the risks and benefits, the patient was deemed in satisfactory condition to undergo the procedure. After I obtained informed consent, the scope was passed under direct vision. Throughout the procedure, the patient's blood pressure, pulse, and oxygen saturations were monitored continuously. The Colonoscope was introduced through the anus and advanced to the cecum, identified by appendiceal orifice and ileocecal valve. The colonoscopy was somewhat difficult due to a tortuous colon. Successful completion of the procedure was aided by applying abdominal pressure. The patient tolerated the procedure well. The quality of the bowel preparation was good. The ileocecal valve and the appendiceal orifice were photographed. Scope In: 7:37:11 AM Scope Withdrawal Time 0 hours 9 minutes 13 seconds Scope Out: 7:54:15 AM Total Procedure Duration Time 0 hours 17 minutes 4 seconds Findings: The digital rectal exam findings include non-thrombosed internal hemorrhoids and internal hemorrhoids that prolapse with straining, but require manual replacement into the anal canal (Grade III). Scattered diverticula were found in the sigmoid colon. A 3 mm polyp was found in the rectum. The polyp was sessile. The polyp was removed with a cold biopsy forceps. Resection and retrieval were complete. The sigmoid colon was significantly tortuous. Advancing the scope required using manual pressure. Impression: - Non-thrombosed internal hemorrhoids and internal hemorrhoids that prolapse with straining, but require manual replacement into the anal canal (Grade III) found on digital rectal exam. - Diverticulosis in the sigmoid colon. - One 3 mm polyp in the rectum, removed with a cold biopsy forceps. Resected and retrieved. - Tortuous colon. Recommendation: - Discharge patient to home. - Resume previous diet. - Continue present medications. - Repeat colonoscopy in 5 years for surveillance based on pathology results. - Telephone my office for pathology results in 1 week. The bleeding of internal hemorrhoids. Might be a candidate for either a PPH stapled hemorrhoidopexy and or surgical hemorrhoidectomy. If bleeding persists then please schedule follow-up office appointment to discuss surgical options. Procedure Code(s): --- Professional --- 01540, Colonoscopy, flexible; with biopsy, single or multiple Diagnosis Code(s): --- Professional --- K64.2, Third degree hemorrhoids K62.1, Rectal polyp K62.5, Hemorrhage of anus and rectum K57.30, Diverticulosis of large intestine without perforation or abscess without bleeding Q43.8, Other specified congenital malformations of intestine CPT copyright 2017 [employer]. All rights reserved. The codes documented in this report are preliminary and upon surgical coder review may be revised to meet current compliance requirements. Baudilio Pike MD 02/01/2023 8:04:48 AM This report has been signed electronically. Number of Addenda: 0 Note Initiated On: 02/01/2023 7:27 AM
--- NOTE | 2023-02-01 08:05 | OP.CCLET_ITS ---
02/01/2023 Ge Montero Re : Colonoscopy procedure for Liliana Montero This procedure was performed on Wednesday, February 01, 2023. My impressions and recommendations are as follows: Impressions : - Non-thrombosed internal hemorrhoids and internal hemorrhoids that prolapse with straining, but require manual replacement into the anal canal (Grade III) found on digital rectal exam. - Diverticulosis in the sigmoid colon. - One 3 mm polyp in the rectum, removed with a cold biopsy forceps. Resected and retrieved. - Tortuous colon. Recommendations : - Discharge patient to home. - Resume previous diet. - Continue present medications. - Repeat colonoscopy in 5 years for surveillance based on pathology results. - Telephone my office for pathology results in 1 week. The bleeding of internal hemorrhoids. Might be a candidate for either a PPH stapled hemorrhoidopexy and or surgical hemorrhoidectomy. If bleeding persists then please schedule follow-up office appointment to discuss surgical options. My findings are described in the full procedure note, which is enclosed. If I can be of further assistance, please feel free to contact me at Doctor phone number(s): Work: . Sincerely, Baudilio Pike MD 02/01/2023 8:04:48 AM This report has been signed electronically.
[2023-02-01] MEDS: Acetaminophen 325 MG Tablet 650 MG PO (08:55)
--- NOTE | 2023-02-01 09:01 | SUR.PHASEII ---
UPON ARRIVAL TO PHASE 2 PT HAD CLEAR LUNG SOUNDS ALIZA, A SLIGHT COUGH AND A HEADACHE. PT IS NOW WHEEZY AND SOB, DR KRAMER AWARE DUONEB ORDERED PER DR. KRAMER VERBAL ORDER. RESPIRATORY CALLED. TYLENOL GIVEN FOR HEADACHE PER VERBAL ORDER. WILL CONTINUE TO MONITOR THE PT. FAMILY AT BEDSIDE.
[2023-02-01] MEDS: Ipratropium/Albuterol Sulfate 3 ML AMPUL.NEB INHALATION (09:10)
--- NOTE | 2023-02-01 09:31 | SUR.PHASEII ---
PT LUNG SOUNDS ARE CLEAR IN THE FRONT DIMINISHED IN THE BACK, NO MORE AUSCULTATED WHEEZES. PER PT SOB HAS SUBSIDED. DR. KRAMER MADE AWARE AND SAW PT AT BEDSIDE. PER DR. KRAMER PT IS NOW MEETING CRITERIA FOR D/C. PT TO BE D/C TO HOME WITH HER FAMILY MEMBER.
== END 2023-02-01 09:39 | disposition home or self-care (01) ==
LOC: EN 06:28 → AC 06:29
PROVIDERS: PCP Family Medicine; Referring Provider Family Medicine; Visit Provider Surgery
PROC: 0DJD8ZZ Inspection of Lower Intestinal Tract, Via Natural or Artificial Opening Endoscopic (ICD-10-PCS; CPT 45378; principal; 2023-02-01 07:25)
DX: K64.2 Third degree hemorrhoids (principal); E11.51 Type 2 diabetes mellitus with diabetic peripheral angiopathy without gangrene; I11.0 Hypertensive heart disease with heart failure; I50.9 Heart failure, unspecified; I42.8 Other cardiomyopathies; K57.30 Diverticulosis of large intestine without perforation or abscess without bleeding; K62.1 Rectal polyp; K62.5 Hemorrhage of anus and rectum; E78.00 Pure hypercholesterolemia, unspecified; Z90.49 Acquired absence of other specified parts of digestive tract; Z79.02 Long term (current) use of antithrombotics/antiplatelets; Z79.84 Long term (current) use of oral hypoglycemic drugs; Z79.899 Other long term (current) drug therapy; Z87.891 Personal history of nicotine dependence
CPT/HCPCS: 45380; 82962; 88305; 94640; J7120; J2405

== ENCOUNTER → 2023-11-01 | Outpatient (CLI) | payer MEDICARE, OTHER, SELFPAY ==
--- NOTE | 2023-11-01 11:40 | RAD_ITS ---
STUDY: X-RAY - LUMBAR SPINE REASON FOR EXAM: Female, 72 years old. R20.2 TECHNIQUE: 5 view(s) of the lumbar spine were obtained. COMPARISON: None FINDINGS: Anterior wedging L1. Oblique projections demonstrates no pars defects. Mild levoconvex scoliosis. There is a normal alignment of the vertebrae. Spondylosis. Disc space narrowing L4-5. The right common femoral artery. Vascular calcifications left kidney. The soft tissue structures are unremarkable. RAD/L/S Spine Min 4 Views IMPRESSION: Mild compression fracture L1, age indeterminate. Degenerative disc disease L4-5. Electronically Signed: Mike Naranjo MD at 23:13 EDT ,
== END | disposition home or self-care (01) ==
LOC: RAD 11:35
PROVIDERS: PCP Family Medicine; Referring Provider Podiatrist; Visit Provider Podiatrist
DX: R20.2 Paresthesia of skin (principal)
CPT/HCPCS: 72110

== ENCOUNTER → 2023-11-13 | Outpatient (CLI) | payer MEDICARE, OTHER, SELFPAY ==
--- NOTE | 2023-11-13 13:40 | NEURO ---
NCS and/or EMG Patient Report Ordering Doctor: Sourav Parada DATE OF SERVICE: 11/13/23 Liliana presents for electrodiagnostic testing of the lower limbs. She reports pain numbness and tingling in the right leg. She is refusing testing of the left lower limb. Electrodiagnostic findings: Right median motor nerve demonstrates prolonged distal latency with reduced amplitude normal conduction velocity. Right tibial motor nerve demonstrates normal distal latency and amplitude with normal conduction velocity. Absent right sural and superficial peroneal responses. H reflex is prolonged bilaterally. Borderline prolonged right peroneal F?wave. Needle EMG testing was performed the right lower limb. All muscles tested, including the right lumbar paraspinals, showed no evidence of denervation with normal motor unit action potentials. Testing was refused in the left lower limb. Electrodiagnostic impression: This is an abnormal study. 1. 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 However, this may be part of a larger polyneuropathy and would recommend testing of the left lower limb to better evaluate. 2. There is no electrodiagnostic evidence for tarsal tunnel syndrome. 3. There is no electrodiagnostic evidence for lumbosacral radiculopathy. Multi Select Codes Neurology Neurology Interp Codes: 07377-59 Musc test done w/n test comp (interp) and 47480-72 Nrv cndj tst 5-6 studies (interp)
== END | disposition home or self-care (01) ==
LOC: PSN 08:27
PROVIDERS: PCP Family Medicine; Visit Provider Podiatrist
DX: R20.2 Paresthesia of skin (principal)
CPT/HCPCS: 95886; 95909

== ENCOUNTER 2023-11-25 07:29 | Emergency (ER) | payer MEDICARE, OTHER, SELFPAY ==
[2023-11-25 07:30] VITALS: BP 147/80; PULSE 76; RESP 18; TEMP 36.4; O2SAT 98; BMI 26.0
--- NOTE | 2023-11-25 07:49 | CT_ITS ---
STUDY: CTA OF THE RIGHT LOWER EXTREMITY PATIENT DEMOGRAPHICS: Female, 73 years old. REASON FOR EXAM: pain right foot, history of arterial stent TECHNIQUE: Axial CT angiography multi-detector data acquisition was obtained from the lower abdominal aorta to the distal feet following intravenous administration of IV 100mL [id number]-[id number]. Axial images and MIP images were reconstructed from the axial data set. Post-processing of the angiographic images was performed, with multiplanar reformation and 3D reconstruction. Individualized dose optimization techniques were used for this CT. RADIATION DOSAGE (If Supplied By Facility): CTDIvol = ( 6.41 ) mGy, DLP = ( 687.38 ) mGycm TECHNICAL LIMITATIONS: None. COMPARISON: No relevant prior comparison study available Descriptors of Narrowing: None (0%) Mild (< 50%) Moderate (50-70%) Severe (70-90%) Subtotal/Total Occlusion (90-100%) Non-Evaluable (technically non-diagnostic) FINDINGS: Right common iliac artery: There is mild diffuse narrowing. Right external iliac artery: There is moderate diffuse narrowing. Right internal iliac artery: There is moderate diffuse narrowing. Left common iliac artery: There is mild diffuse narrowing. Left external iliac artery: There is mild diffuse narrowing. Left internal iliac artery: There is severe diffuse narrowing. Right common femoral artery: There is severe diffuse narrowing. Right profundus femoris: There is mild diffuse narrowing. Right superficial femoral: Occluded stent extending from the origin of the right SFA to the popliteal artery. Collateral arteries are seen in the region of the thigh. Right popliteal artery: There is moderate to severe diffuse narrowing. Right tibioperoneal trunk: There is severe diffuse narrowing. Right anterior tibial artery: No significant narrowing. Right posterior tibial artery: No significant narrowing. Right peroneal artery: No significant narrowing. Left common femoral artery: There is mild diffuse narrowing. Left profundus femoris: No significant narrowing. Left superficial femoral: Scattered areas of mild diffuse narrowing. Left popliteal artery: There is mild diffuse narrowing. Left tibioperoneal trunk: There is mild diffuse narrowing. Left anterior tibial artery: There is mild diffuse narrowing, with visualization of the vessel to the foot. Left posterior tibial artery: There is mild diffuse narrowing, with visualization of the vessel to the distal calf. Left peroneal artery: There is mild diffuse narrowing, with visualization of the vessel to the proximal calf. No demonstrated acute changes in visualized soft tissues. No demonstrated acute osseous changes. CT/CTA LWR EXTR W/O & W/DYE IMPRESSION: 1. Occluded right femoral-popliteal stent with mild bilateral arteries in the region of the thigh. 2. Three-vessel runoff to the right lower leg. 3. Scattered atherosclerotic calcifications in the left SFA with mild narrowing. 4. Three-vessel runoff to the left lower leg pain with intermittent visualization of the distal left anterior tibial artery. Electronically Signed: Porter Daniel MD at 9:39 EDT ,
--- NOTE | 2023-11-25 07:49 | RAD_ITS ---
STUDY: X-RAY - RIGHT FOOT CLINICAL: Female, 73 years old. Pain. TECHNIQUE: 3 views of the right foot. COMPARISON: None. FINDINGS: Intact talus, calcaneus, and tarsal bones. There is a plantar calcaneal spur. Normal visualized subtalar, talonavicular, calcaneocuboid, tarsal and tarsometatarsal articulations. Normal metatarsi. Normal metatarsophalangeal joint of the great toe. Normal tibial and fibular sesamoid bones. Normal interphalangeal joint of the great toe. Normal phalanges of the great toe. Normal second through fifth metatarsophalangeal joints. Normal interphalangeal joints and phalanges of the lesser toes. The soft tissue structures are unremarkable. There is no demonstrated fracture. RAD/Foot min 3 Views IMPRESSION: Plantar calcaneal spur. Electronically Signed: Zion Hernandez MD at 9:04 EDT ,
--- NOTE | 2023-11-25 07:53 | ED.VIS.LOWEX ---
HPI History of Present Illness Chief Complaint: Lower Extremity Injury Detail of Chief Complaint: Right foot pain Informant: patient Narrative Narrative: Patient presents emergency department complaint of right foot pain that has been ongoing. Symptoms have been there for few months. She developed some wounds to the right foot for which she seen a conservation specialist Dr. Parada. Patient also has been to [facility] dermatology for these and she had them injected with steroids. She was told by Dr. Parada of podiatry that these wounds would not heal until they restored blood flow to her foot. She has a history of arterial vascular disease and has had prior stent in her right popliteal region and she is also had angioplasty to that leg. Patient had more severe pain last night and presents for evaluation. She is scheduled to have an arterial study in 2 days. Patient denies fevers or chills or sweats. PFSH [facility] Medical History (Updated 11/25/23 @ 10:[address] Umang Carias, DO) Cardiology follow-up encounter Diabetes Former smoker High cholesterol History of CHF (congestive heart failure) History of echocardiogram History of stress test Hypertension Wears dentures Wears glasses Home Medications carvedilol 12.5 mg tablet 12.5 mg PO BID 01/22/23 [History Last Taken Unknown] clopidogrel 75 mg tablet 75 mg PO DAILY 01/22/23 [History Last Taken 01/29/23] lisinopril 5 mg tablet 5 mg PO DAILY 01/22/23 [History Last Taken Unknown] rosuvastatin 20 mg tablet 20 mg PO DAILY 01/22/23 [History Last Taken Unknown] spironolactone 25 mg tablet 25 mg PO DAILY 01/22/23 [History Last Taken Unknown] glimepiride 2 mg tablet 2 mg PO DAILY 01/30/23 [History Last Taken Unknown] hydrocodone-acetaminophen 5-325mg 5mg-325mg 1 tab PO Q4H PRN PRN Pain 3 days #20 TABLETS 11/25/23 [Rx Last Taken Unknown] Allergy/AdvReac Type Severity Reaction Status Date / Time No Known Allergies Allergy Verified 11/25/23 07:29 Surgical History History of angioplasty History of carotid angioplasty History of carpal tunnel surgery History of cholecystectomy (~2010) History of hand surgery History of hysterectomy (~1999) Social History (Updated 01/22/23 @ 13:57 by Gayla Garcia Smoking Status: Former smoker alcohol intake: never substance use type: does not use ROS ROS ED Review of Systems ROS Unobtainable: other Constitutional Constitutional ED: Reports lethargy; Denies chills, fever(s), sweats or weight loss Eyes Eyes: Denies blurry vision, change in vision or diplopia ENT ENT ED: Denies rhinorrhea or sore throat Cardiovascular Cardiovascular: Denies chest pain, orthopnea or racing heartbeat Respiratory/Chest Respiratory/Chest: Denies cough, dyspnea, dyspnea on exertion, orthopnea or sputum Gastrointestinal Gastrointestinal: Denies abdominal pain, diarrhea, nausea or vomiting Genitourinary Genitourinary ED: Denies dysuria, hematuria or urinary frequency Musculoskeletal Musculoskeletal: Reports other Details: Right foot pain ; Denies arthralgias, back pain, myalgias or neck pain Integumentary Denies abscess, Abrasions or rash Neurologic Neurologic: Denies headache(s) or weakness Psychiatric Psychiatric: Denies anxiety, depression or suicidal thoughts Endocrine Endocrinology: Denies polydipsia, polyphagia or polyuria Hematologic/Lymphatic Hematologic/Lymphatic: Denies easy bleeding, easy bruising or lymphadenopathy Allergic/Immunologic Allergic/Immunologic ED: Denies mouth swelling, tongue swelling or urticaria EXAM Physical Exam Const Vital Signs: 11/25/23 07:30 Temperature 97.6 F L Temperature Source Temporal Pulse Rate 76 Respiratory Rate 18 Blood Pressure 147/80 H Blood Pressure Mean 102 Pulse Ox 98 Oxygen Delivery Method Room Air Positive well nourished and well developed General Appearance ED: well developed and NAD HEENT Reports TM's clear and moist mucous membranes normocephalic and atraumatic; Negative for trauma or tenderness Tympanic Membrane ED: Yes TM's clear Eyes PERRL and EOMs intact bilaterally General Eye ED: Negative for pale conjunctiva or scleral icterus Neck no lymphadenopathy, supple and no JVD General: Negative for tenderness Chest Wall inspection of chest normal and palpation of chest normal Chest: Negative for tenderness Resp normal respiratory effort and clear to auscultation bilaterally Effort and Inspection: Negative for respiratory distress or pain with movement Auscultation: Negative for rhonchi, wheezes or diminished lung sounds Cardio regular rate, regular rhythm, S1 normal heart sound, S2 normal heart sound and no murmurs Peripheral Pulses: pulses 2+ throughout GI normal to inspection, nondistended, normoactive bowel sounds, soft to palpation, non-tender, non-distended and no masses Back/Spine no CVA tenderness and no thoracic nor lumbar tenderness Back/Spine Narrative: No significant tenderness on exam. Negative straight leg raises. Deep tendon reflexes +14 bilaterally at the patella and Achilles. She has normal L5 extension. She has normal sensation to light touch. Extremity normal to inspection Extremity Narrative: Right foot-patient has small erythematous lesions noted to the first MTP joint as well as lateral aspect of the foot. No ulcerations or open areas noted. There is no cellulitic changes. Difficult to palpate dorsal pedal or posterior tibial pulses however she has normal cap refill in the foot is warm to the touch. General Extremety ED: Negative for edema General Extremity: Negative for edema Neuro oriented x3, CN's II-XII intact bilaterally, no sensory deficits noted and gait normal Sensorium / Orientation: awake, alert, oriented to person, oriented to place and oriented to time Motor Exam: strength 5/5 throughout and strength abnormal Psych mental status grossly normal Skin no rashes or lesions noted and no wounds MDM MDM MDM Narrative Medical decision making narrative: Patient presents with right foot pain. History of vascular disease. Clinically she looks well. The foot is warm to the touch and has normal cap refill although I cannot palpate dorsal pedal or posterior tibial pulse. Patient also complains at times of pain down the back of her right leg and there is some thought she may have some sciatica issues. IV line established. Patient was medicated with morphine and Zofran. She will be given a prescription for [place] for home. I did do a CBC with differential that showed a white count of 7.4 with hemoglobin 13 and platelet count of 167. Chemistries unremarkable. X-ray of the right foot obtained showed no acute fractures or lytic lesions. Patient also had a CTA of the right lower extremity that showed occluded right femoral-popliteal stent with collaterals. There was three-vessel runoff to the right lower leg. Scattered atherosclerotic calcifications in the left SFA with mild narrowing. I attempted to contact Dr. Gardiner the vascular surgeon unsuccessfully. I discussed case with Dr. Amaral the reservoir engineering advisor who will will be happy to see patient in follow-up. He wanted me to refer patient to Dr. De La Torre and I will give patient a referral. Also patient had recent x-rays that showed a compression fracture at L1 and he asked that I refer patient to back specialist and I will refer patient to Dr. Whitaker. Patient does have vascular disease. She has some nonhealing wounds of the right lower extremity that do not appear infected. Suspect she may have some component of sciatica as well. Will write her a prescription for hydrocodone and give her referrals. No red flag symptoms of cauda equina. Lab Data Attestation: I reviewed the patient's lab results. Labs: Laboratory Results - last 24 hr 11/25/23 08:00 WBC 7.4 RBC 4.18 L Hgb 13.1 Hct 39.4 MCV 94.3 MCH 31.3 MCHC 33.2 RDW Std Deviation 42.9 RDW Coeff of Pricila 12.4 Plt Count 167 MPV 9.9 Immature Gran % (Auto) 0.700 Neut % (Auto) 74.7 H Lymph % (Auto) 15.2 L [place] % (Auto) 7.4 Eos % (Auto) 1.7 Baso % (Auto) 0.3 Absolute Neuts (auto) 5.6 Absolute Lymphs (auto) 1.13 Nucleated RBC % 0 Sodium 138 Potassium 4.5 Chloride 107 Carbon Dioxide 24.0 Anion Gap 7 BUN 23 H Creatinine 0.98 Estim Creat Clear Calc 42.05 Est GFR (MDRD) Af Amer 71 Est GFR (MDRD) Non-Af 59 L BUN/Creatinine Ratio 23.4 H Glucose 148 H Calcium 9.9 Radiography Diagnostic Testing: Clinical Impression(s) from Imaging Studies Foot X-Ray 11/25/23 07:49 IMPRESSION: Plantar calcaneal spur. Electronically Signed: Zion Hernandez MD at 9:04 EDT Reading Location ID and State: [facility] / [place] , Service support , Lower Extremity CTA 11/25/23 07:49 IMPRESSION: 1. Occluded right femoral-popliteal stent with mild bilateral arteries in the region of the thigh. 2. Three-vessel runoff to the right lower leg. 3. Scattered atherosclerotic calcifications in the left SFA with mild narrowing. 4. Three-vessel runoff to the left lower leg pain with intermittent visualization of the distal left anterior tibial artery. Electronically Signed: Porter Daniel MD at 9:39 EDT , Three-view x-rays of the right foot obtained interpreted by myself as no evidence of fracture dislocation or lytic lesions of the bone. Radiology in agreement. Radiology noted a plantar calcaneal spur. Discharge Plan Triage Chief Complaint: Lower Extremity Injury ED Provider: Umang Carias Dx/Rx/DC Orders Clinical Impression: Sciatica, Acute pain of right foot, PAD (peripheral artery disease) Instructions: PAD Dc, ED Sciatica Prescriptions: New hydrocodone-acetaminophen [hydrocodone-acetaminophen] 5-325 mg tablet 1 tab PO Q4H PRN PRN (Reason: Pain) 3 Days Qty: 20 0RF No Action spironolactone 25 mg tablet 25 mg PO DAILY clopidogrel 75 mg tablet 75 mg PO DAILY lisinopril 5 mg tablet 5 mg PO DAILY carvedilol 12.5 mg tablet 12.5 mg PO BID Rx Instructions: must administer with a meal/food rosuvastatin 20 mg tablet 20 mg PO DAILY glimepiride 2 mg tablet 2 mg PO DAILY Patient Comments: TAKE 1 TABLET BY MOUTH ONCE DAILY Primary Care Provider: Ge Montero Referrals: Bennett De La Torre MD [Med Staff - Active Staff] - 3-5 Days Kris Whitaker DO [Med Staff - Active Staff] - 3-5 Days Ge Montero MD [Primary Care Provider] - Disposition Disposition: Home, Self Care
[2023-11-25 08:11] LABS: Absolute Lymphocyte Count 1.13 X10^3/uL (0.83-4.51); Absolute Neutrophil Count 5.6 X10^3/uL (2.0-7.7); Basophil# 0.02 X10^3/uL; Basophil% 0.3 % (0-1); Eosinophil# 0.13 X10^3/uL; Eosinophils% 1.7 % (0-5); Hematocrit 39.4 % (37-47); Hemoglobin 13.1 g/dL (12.0-15.0); Lymphocyte # 1.13 X10^3/ul (0.83-4.51); Lymphocyte % 15.2 % (19-41); Mean Corp Hgb Conc 33.2 g/dL (32-36); Mean Corpuscular Hgb 31.3 pg (27.0-32.0); Mean Corpuscular Volume 94.3 fL (81-99); Mean Platelet Vol. 9.9 fl (6.2-12.0); Monocyte# 0.55 X10^3/uL; Monocyte% 7.4 % (0-10); NRBC Flagged by Analyzer 0 % (0-5); Neutrophil # 5.56 X10^3/uL (2.7-7.7); Neutrophil % 74.7 % (47-70); Platelet Count 167 K/mm3 (150-450); RBC Distribution Width CV 12.4 % (11.6-14.6); RBC Distribution Width SD 42.9 fl (35.1-43.9); Red Blood Count 4.18 M/mm3 (4.2-5.4); White Blood Count 7.4 K/mm3 (4.4-11.0)
[2023-11-25 08:28] LABS: Anion Gap 7 (5-15); BUN 23 mg/dL (7-18); BUN/Creat Ratio 23.4 RATIO (10-20); Calcium,Total 9.9 mg/dL (8.5-10.1); Chloride 107 mmol/L (98-107); Creatinine, Serum 0.98 mg/dL (0.55-1.02); EST Glomerular Filtration Rate 59 mL/min (>60); Est Glom Filt Rate - Afr Amer 71 mL/min (>60); Estimated Creatinine Clearance 42.05 ml/min; Glucose 148 mg/dL (74-106); Potassium 4.5 mmol/L (3.5-5.1); Sodium Level 138 mmol/L (136-145)
[2023-11-25] MEDS: Morphine 4 MG/ML Syringe IV (11:07)
[2023-11-25] MEDS: Ondansetron 4 MG/2 ML Vial IV (11:07)
[2023-11-25 11:13] VITALS: BP 132/56; PULSE 75; RESP 18; TEMP 36.4; O2SAT 97
== END 2023-11-25 11:35 | disposition home or self-care (01) ==
PROVIDERS: Emergency Provider Emergency Medicine; PCP Family Medicine; Visit Provider Emergency Medicine
DX: M54.30 Sciatica, unspecified side (principal); M48.56XA Collapsed vertebra, not elsewhere classified, lumbar region, initial encounter for fracture; E11.51 Type 2 diabetes mellitus with diabetic peripheral angiopathy without gangrene; M79.671 Pain in right foot; Z87.891 Personal history of nicotine dependence; Z90.49 Acquired absence of other specified parts of digestive tract; E78.00 Pure hypercholesterolemia, unspecified; I10 Essential (primary) hypertension
CPT/HCPCS: 73630; 73706; 80048; 85025; 96374; 96375; 99283; Q9967; A4216; J2405

== ENCOUNTER → 2023-11-27 | Outpatient (CLI) | payer MEDICARE, OTHER, SELFPAY ==
--- NOTE | 2023-11-27 15:31 | BD_ITS ---
STUDY: DUAL ENERGY X-RAY ABSORPTIOMETRY / DXA REASON FOR EXAM: Female, 73 years old. M81.0 TECHNIQUE: Bone Mineral Density (BMD) measurements of lumbar spine and bilateral hips were obtained. COMPARISON: None. FINDINGS: Lumbar Spine (L1-L4): g/cm2 (0.924) / T-score (-0.9) / Z-score (1.5) Findings are suggestive of normal bone density with a low fracture risk. Left Femur Total: g/cm2 (0.821) / T-score (-1.0) / Z-score (0.8) Left Femoral Neck: g/cm2 (0.709) / T-score (-1.3) / Z-score (0.8) Right Femur Total: g/cm2 (0.821) / T-score (-1.0) / Z-score (0.8) Right Femoral Neck: g/cm2 (0.696) / T-score (-1.4) / Z-score (0.7) BD/Dexa Bone Density Study IMPRESSION: The patient is considered osteopenic as outlined below according to World Good Organization (WHO) criteria with a low fracture risk. Reference Information: The T-score is the number of standard deviations above or below the standard which is normal for young adults at their peak bone mineral density. The World Health Organization (WHO) interprets the T-scores as follows: Above -1 Normal bone density Between -1 and -2.5 Osteopenia Equal to / or below -2.5 Osteoporosis As a practical clinical guideline, osteopenia may be graded as follows: Mild -1 through -1.5 Moderate -1.6 through -2.0 Severe -2.1 through -2.4 The Z-score is the number of standard deviations above or below age-matched controls. A Z-score of less than -1.5 would be considered abnormal. References: 1. NIH Osteoporosis and Related Bone Diseases www osteo.org 2. International Society for Clinical Densitometry www iscd.org 3. National Osteoporosis Foundation www nof.org Electronically Signed: Alejo Calderon MD at 12:56 EDT ,
== END | disposition home or self-care (01) ==
LOC: OPBD 15:14
PROVIDERS: PCP Family Medicine; Referring Provider Podiatrist; Visit Provider Podiatrist
DX: M81.0 Age-related osteoporosis without current pathological fracture (principal); R20.2 Paresthesia of skin
CPT/HCPCS: 77080

== ENCOUNTER 2023-12-12 07:38 | Emergency (ER) | payer MEDICARE, OTHER, SELFPAY ==
[2023-12-12] VITALS (7 sets, daily range): BP systolic 138–183; BP diastolic 58–112; PULSE 74–89; RESP 14–20; TEMP 36.1–36.6; O2SAT 94–100; BMI 27.1
--- NOTE | 2023-12-12 08:40 | RAD_ITS ---
STUDY: X-RAY - RIGHT FOOT CLINICAL: Female, 73 years old. Pain, wound distal lateral foot TECHNIQUE: 3 view(s) of the foot. COMPARISON: Comparison is made with prior study dated November 25, 2023. FINDINGS: There is a plantar calcaneal spur. Normal visualized subtalar, talonavicular, calcaneocuboid, tarsal and tarsometatarsal articulations. Normal metatarsi. Normal metatarsophalangeal joint of the great toe. Normal tibial and fibular sesamoid bones. Normal interphalangeal joint of the great toe. Normal phalanges of the great toe. Normal second through fifth metatarsophalangeal joints. Normal interphalangeal joints and phalanges of the lesser toes. Soft tissue swelling overlying the fifth metatarsophalangeal joint. RAD/Foot min 3 Views IMPRESSION: Soft tissue swelling overlying the fifth metatarsal phalangeal joint. Small plantar spur. Electronically Signed: Alejo Calderon MD at 8:57 EDT ,
[2023-12-12] MEDS: 0.9% Normal Saline (500mL Bag) 500 ML 1000 ML IV (08:46)
[2023-12-12] MEDS: HYDROmorphone 1 MG/ML Syringe 0.5 MG IV (08:46)
[2023-12-12] MEDS: Ondansetron 4 MG/2 ML Vial IV ×2 (08:46→09:54)
[2023-12-12 08:47] LABS: Absolute Lymphocyte Count 1.28 X10^3/uL (0.83-4.51); Absolute Neutrophil Count 8.7 X10^3/uL (2.0-7.7); Basophil# 0.04 X10^3/uL; Basophil% 0.4 % (0-1); Eosinophil# 0.09 X10^3/uL; Eosinophils% 0.8 % (0-5); Hematocrit 38.5 % (37-47); Hemoglobin 12.9 g/dL (12.0-15.0); Lymphocyte # 1.28 X10^3/ul (0.83-4.51); Lymphocyte % 11.8 % (19-41); Mean Corp Hgb Conc 33.5 g/dL (32-36); Mean Corpuscular Hgb 30.9 pg (27.0-32.0); Mean Corpuscular Volume 92.1 fL (81-99); Mean Platelet Vol. 9.8 fl (6.2-12.0); Monocyte# 0.62 X10^3/uL; Monocyte% 5.7 % (0-10); NRBC Flagged by Analyzer 0 % (0-5); Neutrophil # 8.72 X10^3/uL (2.7-7.7); Neutrophil % 80.7 % (47-70); Platelet Count 183 K/mm3 (150-450); RBC Distribution Width CV 12.1 % (11.6-14.6); RBC Distribution Width SD 41.1 fl (35.1-43.9); Red Blood Count 4.18 M/mm3 (4.2-5.4); White Blood Count 10.8 K/mm3 (4.4-11.0)
[2023-12-12 08:50] LABS: Erythrocyte Sedimentation Rate 13 mm/hr (0-30)
[2023-12-12 09:09] LABS: Anion Gap 6 (5-15); BUN 16 mg/dL (7-18); BUN/Creat Ratio 17.8 RATIO (10-20); CPK Total, Creatine Kinase 57 U/L (26-192); CRP < 2.90 mg/L (0.0-3.0); Calcium,Total 9.4 mg/dL (8.5-10.1); Chloride 109 mmol/L (98-107); EST Glomerular Filtration Rate 65 mL/min (>60); Est Glom Filt Rate - Afr Amer 79 mL/min (>60); Estimated Creatinine Clearance 46.62 ml/min; Glucose 150 mg/dL (74-106); Sodium Level 138 mmol/L (136-145)
[2023-12-12 09:14] LABS: Lactic Acid 1.6 mmol/L (0.4-1.9)
--- NOTE | 2023-12-12 09:37 | VDLE_ITS ---
Reason For Study: Right leg pain RIGHT LEFT GSV is normal. CFV is compressible, spontaneous, phasic, CFV is compressible, spontaneous, phasic, competent, and demonstrates normal competent and demonstrates normal augmentation. augmentation. FV is compressible, spontaneous, phasic, competent and demonstrates normal augmentation. POP V is compressible, spontaneous, phasic, competent and demonstrates normal augmentation. T/P Trunk is compressible. PTV is compressible. RT PerV is compressible. Procedure This is a venous duplex using B-mode, color flow and spectral Doppler. Exam performed portable in ED. A preliminary report was called and/or faxed to Lianne BLANCO. VL/Venous Duplex US, Unilateral Interpretation Summary Deep veins of the right lower extremity are patent and compressible segmentally . There is no evidence of right lower extremity deep vein thrombosis. The right great sapheno us vein appears patent and compressible segmentally. Ordering Physician: Danika Langston Referring Physician: Ge Montero MD Performed By: Rere Miller RVT
[2023-12-12 09:43] LABS: Prothrombin Time (Protime)PT. 13.3 SECONDS (11.7-14.9)
[2023-12-12] MEDS: Metoclopramide 10 MG/2 ML Vial 5 MG IV (10:13)
--- NOTE | 2023-12-12 10:16 | ED.VIS.LOWEX ---
HPI History of Present Illness Chief Complaint: Wound Informant: patient Narrative Narrative: Patient is a 73-year-old female with known history of peripheral vascular disease, prior stents in her lower extremities, patient Dr. De La Torre, history of diabetes and tobacco use presenting with worsening pain of her right foot as well as wound to her right foot and increased redness. Patient states she has had worsening pain . She notes that she has had a sore on her foot for the past 2 months and switched recently from podiatry to vascular surgery. Pain is worse with movement. She notes that she has a lot of burning pain in her foot but also has pain going up her leg and into her right anterior thigh. Is on Plavix but no other blood thinners. States the pain is constant worse with movement and woke her up from sleep this morning at 4 AM. Patient does note that she saw her chiropractor yesterday and had some adjustment but does not think this pain is really related to her back. No other complaints or concerns reported at this time. [facility] Medical History Wears glasses Wears dentures Diabetes High cholesterol Hypertension Former smoker History of echocardiogram History of stress test Cardiology follow-up encounter History of CHF (congestive heart failure) Home Medications ?Medication ?Instructions ?Recorded ?Last Taken ?Type carvedilol 12.5 mg tablet 12.5 mg PO BID 01/22/23 Unknown History clopidogrel 75 mg tablet 75 mg PO DAILY 01/22/23 01/29/23 History lisinopril 5 mg tablet 5 mg PO DAILY 01/22/23 Unknown History rosuvastatin 20 mg tablet 20 mg PO DAILY 01/22/23 Unknown History spironolactone 25 mg tablet 25 mg PO DAILY 01/22/23 Unknown History glimepiride 2 mg tablet 2 mg PO DAILY 01/30/23 Unknown History hydrocodone-acetaminophen 5-325mg 1 tab PO Q4H PRN PRN Pain 12/05/23 Unknown History 5mg-325mg cephalexin 500 mg capsule 500 mg PO Q6 #40 CAPSULES 12/12/23 Unknown Rx oxycodone 5 mg tablet 2.5 - 5 mg (0.5 - 1 x 5 mg) PO Q6H 12/12/23 Unknown Rx PRN pain 3 days #12 tabs prochlorperazine maleate 5 mg 5 mg PO TID PRN nausea and 12/12/23 Unknown Rx tablet (Compazine) vomiting #14 tabs Allergy/AdvReac Type Severity Reaction Status Date / Time cilostazol (From Pletal) AdvReac Intermediate irregular Verified 12/12/23 07:39 heart beats/nose bleeds Surgical History Hx of extremity bypass graft History of angioplasty History of carotid angioplasty History of cholecystectomy (~2010) History of hand surgery History of carpal tunnel surgery History of hysterectomy (~1999) Social History Smoking Status: Former smoker alcohol intake: never substance use type: does not use ROS ROS ED Constitutional Constitutional ED: Denies chills or fever(s) Cardiovascular Cardiovascular: Denies chest pain Respiratory/Chest Respiratory/Chest: Denies cough Gastrointestinal Gastrointestinal: Reports nausea; Denies abdominal pain or vomiting Musculoskeletal Musculoskeletal: Reports back pain and other Details: RLE pain Integumentary Reports rash Neurologic Neurologic: Reports paresthesias RLE (foot- chronic ); Denies headache(s) Hematologic/Lymphatic Hematologic/Lymphatic: Denies easy bleeding EXAM Physical Exam Const Vital Signs: 12/12/23 07:38 12/12/23 09:46 12/12/23 11:00 Temperature 96.9 F L 97.1 F L Temperature Source Temporal Oral Pulse Rate 89 86 88 Respiratory Rate 14 15 18 Blood Pressure 169/68 H 138/91 H 167/67 H Blood Pressure Mean 101 106 100 Pulse Ox 100 97 95 Oxygen Delivery Method Room Air Room Air Room Air 12/12/23 13:00 12/12/23 15:09 12/12/23 15:13 Temperature Temperature Source Pulse Rate 78 88 Respiratory Rate 14 18 Blood Pressure 165/72 H 183/112 H 164/58 H Blood Pressure Mean 103 135 93 Pulse Ox 95 94 Oxygen Delivery Method 12/12/23 16:03 Temperature 98 F Temperature Source Pulse Rate 74 Respiratory Rate 20 H Blood Pressure 163/64 H Blood Pressure Mean 97 Pulse Ox 96 Oxygen Delivery Method Positive well nourished and well developed General Appearance ED: well developed and NAD HEENT Reports moist mucous membranes Neck full ROM and supple Chest Wall inspection of chest normal Resp normal respiratory effort Cardio regular rate and regular rhythm Cardio Narrative: 2+ right femoral pulse. Dopplerable right DP and PT pulse. 2+ left DP pulse. GI non-tender and non-distended Back/Spine no CVA tenderness Lumbar Spine / Lower Back: straight leg raise negative bilaterally; Negative for lumbar spinal tenderness Extremity Extremity Narrative: Increased rubor and edema of the right lower extremity. No bony deformities. Range of motion of the foot decree secondary to pain. Normal left lower extremity. Neuro oriented x3 Sensorium / Orientation: alert Motor Exam: Negative for general weakness Psych mental status grossly normal Skin Skin Narrative: 1 cm slightly ulcerated wound over the lateral distal foot. Mild surrounding erythema and mild erythema tracking to the dorsal aspect of the foot. No significant lymphangitic streaking appreciated. MDM MDM MDM Narrative Medical decision making narrative: Patient is evaluated for worsening right lower extremity pain. She is a known vasculopath. Differential includes acute on chronic vascular insufficiency, acute ischemic limb (less likely as she has distal pulses), developing osteomyelitis from chronic wound, cellulitis, DVT and referred lumbar pain/lumbar radiculopathy. Patient states she previously received morphine and it caused her GI upset showed she is given IV Dilaudid and Zofran for symptom control. Prior vascular surgery note reviewed which states that she had known failed SFA/popliteal segment intervention and prior left femoropopliteal bypass with vein in 2006 is still patent. Patient CTA showed right external iliac stenosis, right SFA/popliteal occlusion with below knee popliteal reconstitution, 3 vessel runoff. Likely will require iliac stents, common/profunda endarterectomy and [place]/below-knee popliteal bypass however pending vein mapping. Patient has nausea and vomiting after receiving pain medication. Given additional dose of Zofran and then requires a dose of Reglan. Lab work largely unremarkable with no signs of acute ischemia (lactate is normal) and she does not have findings consistent with compartment syndrome (compartments are soft and her CK level is normal at 57) or acute systemic infection with a normal white blood cell count and normal inflammatory markers. She is evaluated by vascular PA who agrees that she does not have signs of acute arterial occlusion or decompensation requiring emergent surgical intervention. Plan will be for outpatient pain control. Patient reevaluated was still having a lot of nausea and vomiting. Will give Compazine and p.o. challenge. Patient has improvement with Compazine. Is able to drink amy mendoza and eat crackers in the emergency room. Will be discharged home is given a prescription for Compazine in addition to the oxycodone and Keflex. Patient is given return precautions and counseled that if she cannot tolerate her medicines her symptoms worsen she should return the emergency room. Patient and family agreeable with plan of care. At this time I do not think patient requires admission for debility, intractable pain or intractable nausea/vomiting. Lab Data Attestation: I reviewed the patient's lab results. Labs: Laboratory Results - last 24 hr 12/12/23 08:32 WBC 10.8 RBC 4.18 L Hgb 12.9 Hct 38.5 MCV 92.1 MCH 30.9 MCHC 33.5 RDW Std Deviation 41.1 RDW Coeff of Pricila 12.1 Plt Count 183 MPV 9.8 Immature Gran % (Auto) 0.600 Neut % (Auto) 80.7 H Lymph % (Auto) 11.8 L [place] % (Auto) 5.7 Eos % (Auto) 0.8 Baso % (Auto) 0.4 Absolute Neuts (auto) 8.7 H Absolute Lymphs (auto) 1.28 Nucleated RBC % 0 ESR 13 PT 13.3 INR 1.0 APTT 23.0 L Sodium 138 Potassium 4.0 Chloride 109 H Carbon Dioxide 23.0 Anion Gap 6 BUN 16 Creatinine 0.90 Estim Creat Clear Calc 46.62 Est GFR (MDRD) Af Amer 79 Est GFR (MDRD) Non-Af 65 BUN/Creatinine Ratio 17.8 Glucose 150 H Lactic Acid 1.6 Calcium 9.4 Total Creatine Kinase 57 C-React Prot Ext Range < 2.90 Radiography Diagnostic Testing: Clinical Impression(s) from Imaging Studies Foot X-Ray 12/12/23 08:40 IMPRESSION: Soft tissue swelling overlying the fifth metatarsal phalangeal joint. Small plantar spur. 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, Foot pain, right, Nausea & vomiting Instructions: ED Cellulitis, ED Vomiting (Adult) Prescriptions: New cephalexin 500 mg capsule 500 mg PO Q6 Qty: 40 0RF prochlorperazine maleate [Compazine] 5 mg tablet 5 mg PO TID PRN (Reason: nausea and vomiting) Qty: 14 0RF oxycodone 5 mg tablet 2.5 - 5 mg PO Q6H PRN (Reason: pain) 3 Days Qty: 12 0RF No Action spironolactone 25 mg tablet 25 mg PO DAILY clopidogrel 75 mg tablet 75 mg PO DAILY lisinopril 5 mg tablet 5 mg PO DAILY carvedilol 12.5 mg tablet 12.5 mg PO BID Rx Instructions: must administer with a meal/food rosuvastatin 20 mg tablet 20 mg PO DAILY hydrocodone-acetaminophen 5-325 mg tablet 1 tab PO Q4H PRN PRN (Reason: Pain) glimepiride 2 mg tablet 2 mg PO DAILY Patient Comments: TAKE 1 TABLET BY MOUTH ONCE DAILY Stand Alone Forms: ED Work / School Excuse Primary Care Provider: Ge Montero Referrals: Bennett De La Torre MD [Med Staff - Active Staff] - Keep Shania appointment Ge Montero MD [Primary Care Provider] - Activity Restrictions/Additional Instructions: Please follow-up with vascular surgery and primary care doctor as we discussed. If you feel that the redness or pain is worsening despite the medications prescribed today we cannot keep medications down because of nausea and vomiting please return to the emergency room. Try to drink plenty fluids as well to keep yourself hydrated. Print Language: Georgian Disposition Disposition: Home, Self Care Discharge Date/Time: 12/12/23 16:12
--- NOTE | 2023-12-12 13:19 | EX.PCM.CON.S ---
Assessment & Plan Assessment/Plan (1) Foot pain, right: PLAN: Plan Her vascular exam is stable from her recent OV. She is scheduled for RLE bypass on 01/13. No signs of acute arterial occlusion or other decompensation requiring emergent surgical intervention at this time. Venous doppler was negative. At present, she was not on any pain medications at home for her rest pain. She cannot tolerate pletal. Plan to initiate oral pain medication regimen which our office will continue/adjust as needed on outpatient basis and have her follow-up in the office in the next 1-2 weeks to reassess. HPI Consult Data Date of Consult: 12/12/23 HPI Narrative HPI Narrative: ESTEFANIA COWAN, is a 73 F who presented to the ER with RLE pain that woke her from sleep early this morning. She reports the pain as burning from her R foot up into her anterior R thigh. She has had chronic rest pain in her R foot for the last few months secondary to known PAD. The R thigh pain was new for her. She did have a chiropractic adjustment yesterday but denies history of chronic back pain/spine issues. She also complains of increased redness around her R foot wound. She is able to move her R foot/toes, she has stable neuropathy. She did not have any fevers, chills. On evaluation, she was having nausea and vomiting but reports this just started after she received IV dilaudid for pain, she says she has had trouble with pain medications causing nausea in the past. She says the pain medication did help her overall pain, thigh pain improved more than her foot pain. She did recently see Dr. De La Torre in the office last week for her PAD and RLE wound. She has a history of multiple prior revasc procedures including a known R SFA/pop occlusion with popliteal reconstitution and 3 vessel runoff into the foot as demonstrated by recent outpatient CTA. Currently, she is scheduled for outpatient R iliac stent, femoral endarterectomy, and fem-below knee popliteal bypass on 01/13. She has had chronic R foot rest pain for a couple months as a result of this fixed disease and her wound. She is not currently on any outpatient pain medications. She has not tolerated pletal in the past. She is using gentle heat, dangling her leg to help manage pain. The pain is often worst when she is trying to sleep at night. [facility] Medical History Wears glasses Wears dentures Diabetes High cholesterol Hypertension Former smoker History of echocardiogram History of stress test Cardiology follow-up encounter History of CHF (congestive heart failure) Home Medications ?Medication ?Instructions ?Recorded ?Last Taken ?Type carvedilol 12.5 mg tablet 12.5 mg PO BID 01/22/23 Unknown History clopidogrel 75 mg tablet 75 mg PO DAILY 01/22/23 01/29/23 History lisinopril 5 mg tablet 5 mg PO DAILY 01/22/23 Unknown History rosuvastatin 20 mg tablet 20 mg PO DAILY 01/22/23 Unknown History spironolactone 25 mg tablet 25 mg PO DAILY 01/22/23 Unknown History glimepiride 2 mg tablet 2 mg PO DAILY 01/30/23 Unknown History hydrocodone-acetaminophen 5-325mg 1 tab PO Q4H PRN PRN Pain 12/05/23 Unknown History 5mg-325mg cephalexin 500 mg capsule 500 mg PO Q6 #40 CAPSULES 12/12/23 Unknown Rx oxycodone 5 mg tablet 2.5 - 5 mg (0.5 - 1 x 5 mg) PO Q6H 12/12/23 Unknown Rx PRN pain 3 days #12 tabs prochlorperazine maleate 5 mg 5 mg PO TID PRN nausea and 12/12/23 Unknown Rx tablet (Compazine) vomiting #14 tabs Allergy/AdvReac Type Severity Reaction Status Date / Time cilostazol (From Pletal) AdvReac Intermediate irregular Verified 12/12/23 07:39 heart beats/nose bleeds Surgical History Hx of extremity bypass graft History of angioplasty History of carotid angioplasty History of cholecystectomy (~2010) History of hand surgery History of carpal tunnel surgery History of hysterectomy (~1999) Social History Smoking Status: Former smoker alcohol intake: never substance use type: does not use Physical Exam Const alert, oriented x3 and no apparent distress General Appearance: cooperative HEENT normocephalic, head/scalp atraumatic, hearing grossly normal bilaterally, external ears normal and external nose normal Eyes EOMs intact bilaterally General Eye: normal appearance of both eyes Neck General: normal visual inspection and trachea midline Resp normal respiratory effort Effort and Inspection: able to speak in complete sentences Cardio regular rate and regular rhythm Extremity Extremity Narrative: R foot with dependent rubor. Noted erythema around the lateral foot wound, no proximal extension. R foot is warm to touch. No pallor or cyanotic discoloration. R DP and PT with strong monophasic signals, R popliteal with strong doppler signal as well. Sensory/motor function intact to the RLE. Neuro oriented x3, CN's II-XII intact bilaterally, moves all extremities, no focal motor deficits and no sensory deficits noted Speech: speech normal Lab / Micro Data 12/12/23 08:32 12/12/23 08:32 Labs: Laboratory Results - last 24 hr 12/12/23 08:32: WBC 10.8, RBC 4.18 L, Hgb 12.9, Hct 38.5, MCV 92.1, MCH 30.9, MCHC 33.5, RDW Std Deviation 41.1, RDW Coeff of Pricila 12.1, Plt Count 183, MPV 9.8, Immature Gran % (Auto) 0.600, Neut % (Auto) 80.7 H, Lymph % (Auto) 11.8 L, Castro % (Auto) 5.7, Eos % (Auto) 0.8, Baso % (Auto) 0.4, Absolute Neuts (auto) 8.7 H, Absolute Lymphs (auto) 1.28, Nucleated RBC % 0, ESR 13, PT 13.3, INR 1.0, APTT 23.0 L, Sodium 138, Potassium 4.0, Chloride 109 H, Carbon Dioxide 23.0, Anion Gap 6, BUN 16, Creatinine 0.90, Estim Creat Clear Calc 46.62, Est GFR (MDRD) Af Amer 79, Est GFR (MDRD) Non-Af 65, BUN/Creatinine Ratio 17.8, Glucose 150 H, Lactic Acid 1.6, Calcium 9.4, Total Creatine Kinase 57, C-React Prot Ext Range < 2.90 Imaging Radiology Impression Foot X-Ray 12/12/23 08:40 IMPRESSION: Soft tissue swelling overlying the fifth metatarsal phalangeal joint. Small plantar spur. Electronically Signed: Alejo Calderon MD at 8:57 EDT ,
[2023-12-12] MEDS: proCHLORPERazine 10 MG/2 ML Vial 5 MG IV (14:09)
== END 2023-12-12 16:12 | disposition home or self-care (01) ==
PROVIDERS: Emergency Provider Emergency Medicine; PCP Family Medicine; Visit Provider Emergency Medicine
DX: E11.621 Type 2 diabetes mellitus with foot ulcer (principal); I70.234 Atherosclerosis of native arteries of right leg with ulceration of heel and midfoot; L97.419 Non-pressure chronic ulcer of right heel and midfoot with unspecified severity; E11.40 Type 2 diabetes mellitus with diabetic neuropathy, unspecified; E11.51 Type 2 diabetes mellitus with diabetic peripheral angiopathy without gangrene; M79.671 Pain in right foot; R11.2 Nausea with vomiting, unspecified; I10 Essential (primary) hypertension; E78.00 Pure hypercholesterolemia, unspecified; Z79.02 Long term (current) use of antithrombotics/antiplatelets; Z79.84 Long term (current) use of oral hypoglycemic drugs; Z79.899 Other long term (current) drug therapy; Z87.891 Personal history of nicotine dependence
CPT/HCPCS: 73630; 80048; 82550; 83605; 85025; 85610; 85652; 85730; 86140; 93971; 96361; 96374; 96375; 96376; 99283; J7040; A4216; J2405

== ENCOUNTER → 2023-12-18 | Outpatient (CLI) | payer MEDICARE, OTHER, SELFPAY ==
--- NOTE | 2023-12-18 14:58 | VDLE_ITS ---
Reason For Study: Pre op RIGHT LEFT GSV prox thigh, 0.14 x 0.14 cm. GSV prox thigh, 0.12 x 0.14 cm. GSV mid thigh, 0.12 x 0.10 cm. GSV mid thigh, 0.12 x 0.12 cm. GSV distal thigh, 0.18 x 0.18 cm. GSV distal thigh, Not visualized. GSV knee, 0.21 x 0.20 cm. GSV knee, 0.12 x 0.13 cm. GSV prox calf, 0.28 x 0.30 cm. GSV prox calf, 0.13 x 0.17 cm. GSV mid calf, 0.24 x 0.27 cm. GSV mid calf, 0.11 x 0.12 cm. GSV distal calf, 0.14 x x 0.14 cm. GSV distal calf, 0.19 x 0.20 cm. SSV prox, 0.26 x 0.25 cm. SSV prox, 0.15 x 0.14 cm. SSV mid, 0.26 x 0.26 cm. SSV mid, 0.10 x 0.12 cm. SSV distal, 0.21 x 0.22cm. SSV distal, 0.14 x 0.14 cm. GSV and SSV are compressible. GSV and SSV are compressible. Procedure This is a venous duplex using B-mode, color flow and spectral Doppler. Exam performed in department. VL/Saphenous Vein Mapping, Bilat Interpretation Summary Right great saphenous vein patent with measurements above. Left great saphenous vein patent with measurements above. Right small saphenous vein patent with measurements above. Left small saphenous vein patent with measurements above. Ordering Physician: Bennett De La Torre Referring Physician: Ge Montero Performed By: Rere Miller, T
== END | disposition home or self-care (01) ==
LOC: CVS 14:57
PROVIDERS: PCP Family Medicine; Referring Provider Surgery Trauma Surgery; Visit Provider Surgery Trauma Surgery
DX: Z01.818 Encounter for other preprocedural examination (principal); I70.234 Atherosclerosis of native arteries of right leg with ulceration of heel and midfoot
CPT/HCPCS: 93970

== ENCOUNTER 2023-12-26 05:26 | Inpatient (IN) | payer MEDICARE, OTHER, SELFPAY ==
[2023-12-20 12:35] LABS: Hemoglobin A1c 5.9 % (3.8-5.6)
[2023-12-26] VITALS (14 sets, daily range): BP systolic 91–172; BP diastolic 50–79; PULSE 55–120; RESP 10–20; TEMP 36.3–37; O2SAT 95–100; BMI 25.8
[2023-12-26] MEDS: Lactated Ringers 1,000 ML 15 ML IV (06:23)
[2023-12-26 06:50] LABS: Bedside Glucose 156 mg/dL (74-106)
--- NOTE | 2023-12-26 07:42 | HP.PCM_ITS ---
History and Physical Allergies cilostazol (From Pletal) Adverse Reaction (Intermediate, Verified 12/12/23 07:39) irregular heart beats/nose bleeds PFSH Medical History Wears glasses Wears dentures Diabetes High cholesterol Hypertension Former smoker History of echocardiogram History of stress test Cardiology follow-up encounter History of CHF (congestive heart failure) Surgical History Hx of extremity bypass graft History of angioplasty History of carotid angioplasty History of cholecystectomy (~2010) History of hand surgery History of carpal tunnel surgery History of hysterectomy (~1999) Social History Smoking Status: Former smoker alcohol intake: never substance use type: does not use HPI HPI HPI: ESTEFANIA COWAN, is a 73 F who presents to the office today for ER follow-up of her RLE pain. Recall that she presented to the ER on 12/13 with worsening burning pain in her R foot up into her anterior thigh. She has had chronic R foot pain at rest secondary to her known PAD. Her vascular exam in the ER was stable. Ultimately, she was initiated on tramadol to help manage her pain in the interval until surgery. In the interim, fortunately, we were able to move up her surgery. She is now scheduled for R iliac stent, femoral endarterectomy, and fem-below knee popliteal bypass on 12/25. She has completed vein mapping studies which revealed no suitable [place] vein for her bypass. Exam Const General: cooperative, comfortable, no acute distress and well developed Nutritional Appearance: well nourished Orientation: alert, awake and oriented x3 HENMT Head: normocephalic and atraumatic Ears: hearing grossly normal bilaterally Nose: external nose normal Eyes General: appearance normal, both eyes and all related structures EOM: EOM intact bilaterally Neck Neck: normal visual inspection and trachea midline Resp Effort & Inspection: normal respiratory effort, able to speak in complete sentences, symmetric chest movement, no audible wheezes, not labored, no stridor and no use of accessory muscles Cardio Rate: regular rate Rhythm: regular rhythm Pulses: brachial pulses present and radial pulses present Skin General: no rashes or lesions noted and no erythema Wounds: wounds noted (medial heel, lateral forefoot, lateral heel) Neuro Cranial Nerves: CN's II-XI intact bilaterally and EOM intact bilaterally Speech: speech normal Gait: normal gait Motor: strength 5/5 throughout Sensory Exam: no sensory deficits noted Extremities Pulses: Absent: Right Dorsalis Pedis Pulse (monophasic), Left Dorsalis Pedis Pulse (biphasic), Right Posterior Tibial Pulse (monophasic) and Left Posterior Tibial Pulse (biphasic) Lower Extremity Edema: None: Bilateral Psych Appearance: grossly normal and well kempt Mental Status: mental status grossly normal Mood: congruent mood Speech and Movement: speech and movement normal Thought Content: normal Judgment: judgment good Coding Level of Care Code Off vis,est,level 2 Diagnoses 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 I70.212 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 I70.234 Assessment and Plan Assessment and Plan (1) 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: Status: Acute (2) 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
--- NOTE | 2023-12-26 07:43 | PRE.ANES_ITS ---
ASA Classification* ASA Classification ASA Classification: 3 Assessment & Plan Anesthesia* Anesthesia Assessment Anesthesia Assessment: Discussed sedation and/or anesthesia options, risks, benefits, and alternatives with patient/parents/legal guardian/POA. Questions invited. The patient/parents/legal guardian/POA seems to understand and agrees to proceed with anesthesia plan. Reviewed the physical assessment, medical history, allergy history and patient home medications list prior to surgery/procedure/anesthetic and documented any changes. Performed airway and anesthesia risk assessments. 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 When Was Last Pacemaker Check QUESTION #4 FULL TEXT: You/Your Family Experience fever (hyperthermia) with Anesthesia Last Oral Intake Last Oral intake: Last Oral Intake NPO since 21:00 12/26/23 06:01 Meds taken in AM with sips of Yes 12/26/23 06:01 water? Meds patient instructed to take am of surgery PONV PONV - industrial hire sales assistant: PONV - industrial hire sales assistant Female Yes 12/20/23 11:30 HX of Motion Sickness Yes 12/20/23 11:30 HX of N/V After Surgery Yes 12/20/23 11:30 Non-Smoker Yes 12/20/23 11:30 Duration of Surgery greater Yes 12/20/23 11:30 than 60 minutes Number of Risk Factors 5 12/20/23 11:30 PONV Score Severe Risk 12/20/23 11:30 Height & Weight Height & Weight: Anesthesia: Height & Weight Height 5 ft 1 in 12/26/23 06:01 Weight: 62 kg 12/26/23 06:01 Body Mass Index (BMI) 25.8 12/26/23 06:01 Respiratory Assessment Respiratory Assessment - industrial hire sales assistant: Respiratory Tract Infection Hx - industrial hire sales assistant Hx Respiratory Tract Infection No 12/20/23 11:30 STOP Sleep Apnea STOP Sleep Apnea - industrial hire sales assistant: STOP Sleep Apnea - industrial hire sales assistant Hx Hypertension Yes: CONTROLLED WITH MED 12/20/23 11:30 Hx Sleep Apnea No 12/20/23 11:30 CPAP BIPAP Do you snore loudly (louder No 12/20/23 11:30 than talking or can be heard Do you often feel tired/ Yes 12/20/23 11:30 fatigued/ sleepy during daytime? Has anyone observed you stop No 12/20/23 11:30 breathing during sleep? STOP Results Positive 12/20/23 11:30 QUESTION #5 FULL TEXT : Do you snore loudly (louder than talking or can be heard through closed doors)? 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 Specify any problems Hx of Preganancy in last 3 No 12/20/23 11:30 Months Nurse Filling Out Transfusion DSCHRIBER 12/20/23 11:30 & Questions: Date: 12/20/23 12/20/23 11:30 Time: 11:32 12/20/23 11:30 Patient unable to answer at this time (ie. confused, unrespo /Reproduction History /Reproductive History - industrial hire sales assistant: /Reproductive Hx- industrial hire sales assistant Hx Now No 12/20/23 11:30 Gestational Age (in weeks): EDC: Hx Hx Para Hx Section SAB No 12/20/23 11:30 Active Medications Active Medications: Current Medications Generic Name Dose Route Start Last Admin Trade Name Krissy PRN Reason Stop Dose Admin Cefazolin Sodium 2 gm/ Sodium 110 mls @ 150 mls/hr 12/26/23 07:30 Chloride IV 12/26/23 08:13 PREOP ONE Lactated Ringer's 1,000 mls @ 15 mls/hr 12/26/23 05:45 12/26/23 06:23 IV 15 mls/hr .Q48H GLENNY Administration Anesthesia Focused Assessment* Temperature: 97.4 F Pulse Rate: 55 Blood Pressure: 172/66 Respiratory Rate: 18 Pulse Ox: 100 Airway Assessment Mouth opens (cm): 3 Mallampati Score: II Focused Labs Anesthesia Preop lab: CBC WBC 10.8 K/mm3 (4.4-11.0) 12/12/23 08:32 RBC 4.18 M/mm3 (4.2-5.4) L 12/12/23 08:32 Hgb 12.9 g/dL (12.0-15.0) 12/12/23 08:32 Hct 38.5 % (37-47) 12/12/23 08:32 Plt Count 183 K/mm3 (150-450) 12/12/23 08:32 CHEMISTRY Potassium 4.0 mmol/L (3.5-5.1) 12/12/23 08:32 Sodium 138 mmol/L (136-145) 12/12/23 08:32 BUN 16 mg/dL (7-18) 12/12/23 08:32 Creatinine 0.90 mg/dL (0.55-1.02) 12/12/23 08:32 Glucose 150 mg/dL (74-106) H 12/12/23 08:32 COAG PT 13.3 SECONDS (11.7-14.9) 12/12/23 08:32 Review of Systems (Anesthesia) ROS Narrative System reviewed and no additional complaints, except as documented. [facility] Medical History Post-menopausal Anxiety Discoloration of skin Arthritis Uses wheelchair Walker as ambulation aid Anemia Back pain Dietary restriction History of diverticulitis Heartburn Leg cramps History of pain when walking History of edema Wears glasses Wears dentures Diabetes High cholesterol Hypertension Former smoker History of echocardiogram History of stress test Cardiology follow-up encounter History of CHF (congestive heart failure) Home Medications ?Medication ?Instructions ?Recorded ?Last Taken ?Type carvedilol 12.5 mg tablet 12.5 mg PO BID HEART 01/22/23 12/26/23 History clopidogrel 75 mg tablet 75 mg PO DAILY BLOOD THINNER 01/22/23 12/26/23 History lisinopril 5 mg tablet 5 mg PO DAILY BP 01/22/23 12/26/23 History rosuvastatin 20 mg tablet 20 mg PO QHS CHOLESTEROL 01/22/23 12/25/23 History spironolactone 25 mg tablet 25 mg PO DAILY WATER PILL 01/22/23 12/25/23 History glimepiride 2 mg tablet 2 mg PO DAILY DIABETES 01/30/23 12/25/23 History prochlorperazine maleate 5 mg 5 mg PO TID PRN nausea and 12/12/23 Unknown Rx tablet (Compazine) vomiting #14 tabs aspirin 81 mg tablet,delayed 81 mg PO DAILY BLOOD THINNER 12/20/23 12/26/23 History release (Adult Aspirin Regimen) tramadol 50 mg tablet 50 mg PO Q6H PRN PRN pain 12/20/23 12/25/23 History Allergy/AdvReac Type Severity Reaction Status Date / Time cilostazol (From Pletal) AdvReac Intermediate irregular Verified 12/26/23 05:59 heart beats/nose bleeds Surgical History Hx of colonoscopy Hx of extremity bypass graft History of angioplasty History of carotid angioplasty History of cholecystectomy (~2010) History of hand surgery History of carpal tunnel surgery History of hysterectomy (~1999) Social History Smoking Status: Former smoker alcohol intake: never substance use type: does not use
[2023-12-26] MEDS: Cefazolin 2 GM in 0.9% Normal Saline (100mL Bag) 100 ML IV (07:50)
[2023-12-26] MEDS: Heparin Injection (Vial) 5,000 UNIT/ML VIAL 5000 UNIT (08:34)
[2023-12-26] MEDS: Heparin 10,000 UNITS/10 ML Vial 10000 UNITS ×2 (08:34→10:28)
--- NOTE | 2023-12-26 11:00 | RAD_ITS ---
PROCEDURE: Right iliac stent placement. DATE OF EXAMINATION: December 26, 2023. INDICATION: Female, 73 years old. Right lower extremity ischemic changes. FLUOROSCOPY TIME (if supplied): (6 minutes and 18 seconds) minutes/seconds. 117.28 mGy. RAD/Fluoroscopy 1 Hr or Less IMPRESSION: Fluoroscopic imaging provided for placement of the right common iliac stent. Electronically Signed: Alejo Calderon MD at 14:30 EDT ,
--- NOTE | 2023-12-26 15:35 | PCM.OPRPT ---
Report of Operation Date of Procedure: 12/26/23 Pre-Operative Diagnosis: atherosclerosis with ulceration right forefoot, heel Post-Operative Diagnosis: same Surgery/Procedure Performed:: right common femoral endarterectomy right profunda endarterectomy right external iliac stent right fem-BK popliteal bypass with cadaver GSV right sartorius flap Surgeon: Bennett De La Torre Type of Anesthesia: General Estimated Blood Loss (mL): 600 Description of Procedure: HPI: Patient is a 73-year-old female with atherosclerosis and ulceration with nonhealing wound to the right lower extremity. She had multiple previous revascularizations of bilateral extremities including iliac stent and SFA popliteal stent. The SFA popliteal stented segments as well as proximal to the femoral bifurcation are chronically occluded. She does not recall any open revascularization of the right lower extremity however it was discovered during prepping that she had an incision over the femoral artery which ultimately was revealed to be from a prior femoral endarterectomy and patch angioplasty. She has reconstitution of the popliteal artery below the knee so she is taken now for revascularization. Given the redo nature of the groin and need for repeat endarterectomy of the common femoral artery a modifier 22 was applied given the additional 2 hours of surgical time. Description of procedure: Upon obtaining form consent and verification correct patient procedure site patient was taken to the operating where she was placed under general anesthesia. She was then positioned prepped and draped in usual sterile fashion and timeout was performed. Skin incision was made at the location of the prior oblique incision and Bovie electrocautery was dissect down through significant dense scar and self-retaining retractor put in position. Further dissection was carried down through the scar tissue and it was noted that the incision was fairly more lateral than the vessels so we redirected our dissection medially guiding our trajectory with frequent Doppler evaluation for the common femoral artery. There is no palpable pulse in the vessel due to the more proximal disease. Ultimately we dissected down to the common femoral artery and sharp dissection was then used to dissect free proximal to the inguinal ligament which was freed along its inferior border and retracted superiorly. Further dissection was carried cephalad onto the distal external artery onto the vessel that had not been previously violated for the prior endarterectomy. At this location the vessel was soft with only moderate amount of atherosclerosis so a right angle used to place a vessel loop. We then dissected very tediously distally along the medial lateral edge of the vessel through the scar tissue until we identified the medial lateral circumflex vessels which were then dissected free and a right angle used to place a vessel loop. Further dissection was carried along the medial aspect of the vessel down to the bifurcation ultimately onto the SFA beyond the area of previous surgical dissection. A right angle was used to place a vessel but this location. Finally sharp dissection was used along the lateral edge working down onto the profunda. Again there is very significant dense scar at the bifurcation and overlying the profunda proximally. We ultimately were to able dissect this free and identify 3 major secondary branches of the profunda which were soft and free of any significant plaque. A right angle was used to place Vesseloops around each of these individually. Next an incision was made in the proximal calf to fingerbreadths medial to the tibia. Bovie electrocautery was then used to dissect down through subcutaneous tissue and self-retaining retractor put in position. The gastrocnemius muscle was then retracted posteriorly and combination of blunt and sharp dissection used to dissect down until the popliteal vessels or visualized. Sharp dissection was then used to dissect free the distal popliteal artery which was soft and clinical length and adequate for a distal target. A right angle was used to place a vessel loop proximally around the vessel and the catheter dissection distally down onto the anterior tibial artery and tibioperoneal trunk. There was adequate space to place Vesseloops above this bifurcation and complete our anastomosis. At the bifurcation there was circumferential calcified plaque which based on imaging was not creating any significant stenosis. A writing was placed vessel dislocation. We then used a Ricci tunneler to tunnel from the popliteal incision up to the femoral incision. The patient was then heparinized and allowed to circulate for 3 minutes. Micropuncture needle was then used to access the common femoral artery and the proximal third of the vessel and the micropuncture wire passed without resistance. This then exchanged for micropuncture sheath. Hand-injection iliac angiogram was performed revealing satisfactory positioning and successful crossing of the iliac occlusion. Through the micropuncture sheath a Bentson wire was advanced and the micropuncture sheath withdrawn. The femoral vessels then occluded with Vesseloops and the puncture site extended with Chiu scissors proximally up to the distal external iliac artery distally down onto the largest secondary branch of the profunda. We then performed her endarterectomy with a freer elevator with satisfactory endpoint distally onto the profunda and proximally up to the distal external iliac artery. A bovine pericardial patch was then brought on the field and secured in position using a 6-0 Prolene in running fashion. Prior to completing the suture line a Cook access needle was used to puncture the mid patch and facilitate wire positioning through the patch for the endovascular part of the procedure. After the suture line was completed the vessels were backbled and clamps removed with satisfactory stasis noted. Next a 7 [place] sheath was advanced over the Bentson wire and positioned in the external iliac artery. A marker catheter was then advanced through the sheath and hand-injection subtraction geography performed marking the proximal extent of the area of treatment and distally down onto the external iliac artery distal segment where the endarterectomy and patch had been extended. There was stenosis at the origin of the external iliac artery so the plan was to extend our stent into the common iliac artery. The vessel was then predilated with a 5 mm x 80 angioplasty balloon across the entirety of its length. Next a 6 x 120 Cook Zilver PTX is advanced over the wire and positioned with adequate coverage of the entire the length of the lesion with distal endpoint into the proximal portion of the patch. This was then deployed and then postdilated with a 5 mm angioplasty balloon. Completion angiography revealed satisfactory result with no extravasation or dissection and no residual stenosis. Next the wire and sheath were withdrawn and the femoral vessels occluded with atraumatic clamp. The puncture site stented with Chiu scissors and the cadaver vein which had been thawed per electric furnace operator instructions was beveled to match the arteriotomy and oriented in reverse fashion. Proximal anastomosis was performed using a 6-0 Prolene running fashion. After completing the suture line vessels were backbled and flushed into the bypass graft. There is satisfactory stasis at the suture line and a brisk pulse and flow through the bypass. All sidebranches were noted to be ligated and satisfactory hemostasis. The vein was then marked to maintain orientation and secured to the tunneler and then pulled through to the distal incision. The popliteal artery then occluded with Vesseloops and longitudinal arteriotomy created 11 blade extended with Chiu scissors. The vein was then cut the length and beveled to match the arteriotomy. Anastomosis performed using 6-0 Prolene in running fashion. Prior to completing suture line the graft and vessels were back flushed into the suture line clamps removed and satisfactory stasis was noted. There is a palpable pulse across the bypass graft and into the outflow vessel. Pedal signals were significantly improved with a multi dorsalis pedis signal. Heparin was then reversed with protamine and the incision is inspected hemostasis. Given the patient's diabetic status, redo nature of the femoral surgical field it was felt the sartorius flap was warranted. We then dissected laterally on the the fascia overlying sartorius muscle. This was then incised vertically and the lateral muscle dissected free up to the ASIS. The insertion was then taken down with Bovie electrocautery and the vessel reflected medially to cover the patch common femoral artery. Floseal topical hemostatic was applied to the suture line and adjacent tissue and Tisseel to the muscle flap harvest site. The flap was then secured over the vessels with interrupted 2-0 Vicryl. The incision closed with 3-0 Vicryl and 4 Monocryl then Dermabond for the skin. The patient was awake from anesthesia taken to the intensive care unit for hemodynamic and vascular monitoring.
--- NOTE | 2023-12-26 16:19 | PCM.POST.ANE ---
Anesthesia: Postop Eval I Current Vital Signs Temperature: 98.6 F Pulse Rate: 109 Blood Pressure: 103/55 Respiratory Rate: 20 Pulse Ox: 96 Oxygen Delivery Method: Room Air Assessment Airway patent: Yes Spontaneous unlabored respirations: Yes Mental status: Awake and Calm nausea: Yes Vomiting: No Anesthesia Complication: No Fluid Hydration Crystalloid volume administer (ml): 3,300 Blood Product volume administered (ml): 246 Total IV fluid infused: 3,546 Progress Note Anesthesia document: Postop Eval 1 completed: Yes
--- NOTE | 2023-12-26 16:20 | POSTOPAN2_ITS ---
Anesthesia Postop Eval I Sum Postop Eval Completion status Anesthesia document: Postop Eval 1 completed: Yes Anesthesia Postop Eval I Summary Anesthesia Postop Eval I Summary: Anesthesia Postop Eval I: Assessment Summary Airway patent Yes 12/26/23 16:20 CIRCUIT BOARD REPAIR [email or web address].[email or web address] Spontaneous unlabored Yes 12/26/23 16:20 CIRCUIT BOARD REPAIR TECHNICIAN.[email or web address] respirations Mental status Awake,Calm 12/26/23 16:20 CIRCUIT BOARD REPAIR TECHNICIAN.GDOTT nausea Yes 12/26/23 16:20 CIRCUIT BOARD REPAIR TECHNICIAN.GDOTT Vomiting No 12/26/23 16:20 CIRCUIT BOARD REPAIR TECHNICIAN.[email or web address] Anesthesia Postop Eval I: Fluid Summary Crystalloid volume administer 3,300 12/26/23 16:20 CIRCUIT BOARD REPAIR TECHNICIAN.GDOTT (ml) Colloids volume administered ( ml) Blood Product volume 246 12/26/23 16:20 CIRCUIT BOARD REPAIR TECHNICIAN.GDOTT administered (ml) Total IV fluid infused 3,546 12/26/23 16:20 CIRCUIT BOARD REPAIR TECHNICIAN.[email or web address] Anesthesia Postop Eval I: Summary Notes Anesthesia Complication No 12/26/23 16:20 CIRCUIT BOARD REPAIR TECHNICIAN.GDOTT Anesthesia Complication Comment: Post-operative progress note Anesthesia: Postop Eval II Evaluation Mental status: Awake and Calm Pain Level: 2 nausea: Yes Vomiting: No Complications Anesthesia Complication: No
--- NOTE | 2023-12-26 16:20 | PCM.POSTANE2 ---
Anesthesia Postop Eval I Sum Postop Eval Completion status Anesthesia document: Postop Eval 1 completed: Yes Anesthesia Postop Eval I Summary Anesthesia Postop Eval I Summary: Anesthesia Postop Eval I: Assessment Summary Airway patent Yes 12/26/23 16:20 LAV [email or web address] Spontaneous unlabored Yes 12/26/23 16:20 LAV [email or web address] respirations Mental status Awake,Calm 12/26/23 16:20 LAV [email or web address] nausea Yes 12/26/23 16:20 LAV [email or web address].GDOTT Vomiting No 12/26/23 16:20 LAV [email or web address] Anesthesia Postop Eval I: Fluid Summary Crystalloid volume administer 3,300 12/26/23 16:20 LAV [email or web address] (ml) Colloids volume administered ( ml) Blood Product volume 246 12/26/23 16:20 LAV [email or web address] administered (ml) Total IV fluid infused 3,546 12/26/23 16:20 LAV [email or web address] Anesthesia Postop Eval I: Summary Notes Anesthesia Complication No 12/26/23 16:20 LAV [email or web address] Anesthesia Complication Comment: Post-operative progress note Anesthesia: Postop Eval II Evaluation Mental status: Awake and Calm Pain Level: 2 nausea: Yes Vomiting: No Complications Anesthesia Complication: No
[2023-12-26] MEDS: 0.9% Normal Saline (1000mL) 1,000 ML 100 ML IV (16:30)
[2023-12-26] MEDS: Ondansetron 4 MG/2 ML Vial IV (16:32)
[2023-12-26] MEDS: proCHLORPERazine 5 MG Tablet PO (18:22)
[2023-12-26 18:24] LABS: Hematocrit 31.9 % (37-47); Hemoglobin 10.7 g/dL (12.0-15.0)
[2023-12-26 21:03] LABS: Bedside Glucose 241 mg/dL (74-106)
[2023-12-26] MEDS: HEPARIN/D5w 25,000 UNITS 25,000 UNITS/250 ML IV.SOLN. 5 UNITS CONT INF (21:11)
[2023-12-26] MEDS: Acetaminophen 500 MG Tablet 1000 MG PO (21:12)
[2023-12-26] MEDS: Famotidine 20 MG Tablet PO (21:12)
[2023-12-26] MEDS: Carvedilol 12.5 MG Tablet PO (21:13)
[2023-12-26] MEDS: Docusate Sodium 100 MG Capsule PO (21:13)
[2023-12-26] MEDS: Atorvastatin Calcium 40 MG Tablet PO (21:14)
[2023-12-26] MEDS: Insulin Lispro 100 UNIT/ML INSULN.PEN SC (21:17)
[2023-12-27] VITALS (31 sets, daily range): BP systolic 83–136; BP diastolic 35–76; PULSE 80–110; RESP 12–24; TEMP 36–36.6; O2SAT 95–100; BMI 27.1
[2023-12-27] MEDS: 0.9% Normal Saline (1000mL) 1,000 ML 100 ML IV (02:30)
[2023-12-27] MEDS: 0.9% Saline Lock 10 ML Syringe IV ×3 (03:33→21:55)
[2023-12-27 03:48] LABS: Absolute Lymphocyte Count 0.95 X10^3/uL (0.83-4.51); Absolute Neutrophil Count 13.2 X10^3/uL (2.0-7.7); Basophil# 0.02 X10^3/uL; Basophil% 0.1 % (0-1); Hematocrit 26.3 % (37-47); Hemoglobin 8.8 g/dL (12.0-15.0); Lymphocyte # 0.95 X10^3/ul (0.83-4.51); Lymphocyte % 6.1 % (19-41); Mean Corp Hgb Conc 33.5 g/dL (32-36); Mean Corpuscular Hgb 31.5 pg (27.0-32.0); Mean Corpuscular Volume 94.3 fL (81-99); Mean Platelet Vol. 9.9 fl (6.2-12.0); Monocyte# 1.18 X10^3/uL; Monocyte% 7.6 % (0-10); NRBC Flagged by Analyzer 0 % (0-5); Platelet Count 181 K/mm3 (150-450); RBC Distribution Width CV 12.5 % (11.6-14.6); RBC Distribution Width SD 43.1 fl (35.1-43.9); Red Blood Count 2.79 M/mm3 (4.2-5.4); White Blood Count 15.5 K/mm3 (4.4-11.0)
[2023-12-27 03:59] LABS: Partial Thromboplast Time 49.1 Seconds (24.1-36.2)
[2023-12-27 04:01] LABS: Anion Gap 9 (5-15); BUN 28 mg/dL (7-18); BUN/Creat Ratio 24.3 RATIO (10-20); Calcium,Total 7.8 mg/dL (8.5-10.1); Chloride 108 mmol/L (98-107); Creatinine, Serum 1.15 mg/dL (0.55-1.02); EST Glomerular Filtration Rate 49 mL/min (>60); Est Glom Filt Rate - Afr Amer 59 mL/min (>60); Estimated Creatinine Clearance 35.69 ml/min; Glucose 218 mg/dL (74-106); Potassium 4.4 mmol/L (3.5-5.1); Sodium Level 140 mmol/L (136-145)
[2023-12-27] MEDS: Acetaminophen 500 MG Tablet 1000 MG PO ×3 (05:08→21:56)
--- NOTE | 2023-12-27 07:30 | PLAQ_PTH ---
PATIENT: ESTEFANIA COWAN LOC: [facility] U#:[id number] AGE/SX: 73/F ROOM: [place] [address] RE12/26/[address]: Dr. Bennett De La Torre MD : 1950 BED: 1 DIS: 12/29/2023 SPEC #: [id number] RECD: 12/27/23 10:50 STATUS: SETFFI CHAPA #: [id number] MARCELLA: 12/27/23 07:[address]: Bennett De La Torre DEPT: SURGICAL PATHOLOGY RECD BY: Felipe Liu ENTERED: 12/27/23 12:30 SP TYPE: PLAQUE OTHR DR: Dr. Ge Montero MD Tissues: PLAQUE Procedures: Decalcification bone/plaque Surgery Specimen Level III HEADER OPERATION: Femoral endarterectomy, profunda endarterectomy femeral- popite PRE-OP DIAGNOSIS: Atheroscler of [place] artery of left leg with intermit claudication, Atherosclerosis of [place] arteries pf right leg with ulceration of heel and midfoot TISSUE SUBMITTED: Plaque- gross only MICROSCOPIC DIAGNOSIS Left femoral artery, endarterectomy: Calcified atheromatous plaque consistent with severe stenosis. / 01/01/2024 GROSS DESCRIPTION Received in fixative is one container labeled with the patient's name and designated Plaque-gross only. The specimen consists of a previously opened tubular piece of samuel indurated tissue measuring 3.0cm in length and 0.5cm in diameter. Lumen appears to be almost completely ecluded. Also present in the container are multiple detached pieces of samuel indurated tissue measuring in aggregate 2.0 x 0.5 x 0.3cm. This specimen cut focally with gritty sensation. The entire specimen is submitted in one cassette after decalcification. / 12/27/2023 TC:5 CPT:41113,83607
[2023-12-27] MEDS: traMADol 50 MG Tablet PO ×3 (08:08→22:09)
[2023-12-27] MEDS: proCHLORPERazine 5 MG Tablet PO (08:08)
[2023-12-27] MEDS: Insulin Lispro 100 UNIT/ML INSULN.PEN SC ×2 (08:08→11:31)
[2023-12-27] MEDS: Aspirin E.C. 81 MG Tablet PO (08:09)
[2023-12-27] MEDS: Clopidogrel Bisulfate 75 MG Tablet PO (08:09)
[2023-12-27] MEDS: Glimepiride 2 MG Tablet PO (08:09)
[2023-12-27] MEDS: Famotidine 20 MG Tablet PO ×2 (08:09→21:58)
[2023-12-27 08:20] LABS: Bedside Glucose 170 mg/dL (74-106)
--- NOTE | 2023-12-27 09:06 | PN.SURG_ITS ---
Subjective Subjective Patient was seen this morning and again this afternoon. She reports resolution of her prior rest pain and claudication. She reports overall minimal pain through her extremity at rest, has pain around the groin incision site especially with lifting her leg such as getting in/out of bed. She does complain of a headache in the R occipital and temporal regions, otherwise no complaints. Her nausea has improved, she has been tolerating advances in her diet. She worked with PT/OT today and did okay, they do recommend continued therapy in rehab/TCU/SNF prior to discharge home. Her Hgb was 8.8 this morning, repeat this afternoon is pending. No signs of bleeding at the incision sites. Objective Data Objective Data Vital Signs: Vital Signs Temp Pulse Resp BP Pulse Ox O2 Del Method 97.6 F L 100 14 119/39 L 99 Room Air 12/27/23 08:00 12/27/23 08:00 12/27/23 08:00 12/27/23 08:00 12/27/23 08:00 12/27/23 08:00 Oxygen Delivery Method Room Air Weight: 143 lb 4.807 oz Body Mass Index (BMI) 27.1 Intake & Output: Intake and Output for Last 24 Hours 12/25/23 12/26/23 12/27/23 23:59 23:59 23:59 Intake Total 570 / 570 1000 / 1000 Output Total 625 / 625 150 / 150 Balance -55 / -55 850 / 850 Lab / Micro Data 12/27/23 16:05 12/27/23 03:35 Labs: Laboratory Results - last 24 hr 12/26/23 18:15: Hgb 10.7 L, Hct 31.9 L 12/26/23 20:44: POC Glucose 241 H 12/27/23 03:35: WBC 15.5 H, RBC 2.79 L, Hgb 8.8 L, Hct 26.3 L, MCV 94.3, MCH 31.5, MCHC 33.5, RDW Std Deviation 43.1, RDW Coeff of Pricila 12.5, Plt Count 181, MPV 9.9, Immature Gran % (Auto) 1.200 H, Neut % (Auto) 85.0 H, Lymph % (Auto) 6.1 L, Williams % (Auto) 7.6, Eos % (Auto) 0.0, Baso % (Auto) 0.1, Absolute Neuts (auto) 13.2 H, Absolute Lymphs (auto) 0.95, Nucleated RBC % 0, APTT 49.1 H, Sodium 140, Potassium 4.4, Chloride 108 H, Carbon Dioxide 23.0, Anion Gap 9, BUN 28 H, Creatinine 1.15 H, Estim Creat Clear Calc 35.69, Est GFR (MDRD) Af Amer 59 L, Est GFR (MDRD) Non-Af 49 L, BUN/Creatinine Ratio 24.3 H, Glucose 218 H, C alcium 7.8 L 12/27/23 08:02: POC Glucose 170 H Radiography Diagnostic Testing: Radiology Impression Fluoroscopy 12/26/23 11:00 IMPRESSION: Fluoroscopic imaging provided for placement of the right common iliac stent. Electronically Signed: Alejo Calderon MD at 14:30 EDT Reading Location ID and State: [facility] / [place] , Service support , Physical Exam Const alert, oriented x3 and no apparent distress General Appearance: cooperative HEENT normocephalic, head/scalp atraumatic, hearing grossly normal bilaterally, external ears normal and external nose normal Eyes PERRL and EOMs intact bilaterally General Eye: normal appearance of both eyes Neck General: normal visual inspection and trachea midline Resp normal respiratory effort Effort and Inspection: able to speak in complete sentences; Negative for labored, grunting, stridor or audible wheezes Cardio regular rate and regular rhythm Extremity Extremity Narrative: Strong, multiphasic doppler signals at the R DP and PT. R foot is warm and pink. R groin incision site with Prevena dressing maintaining good seal. Expected swelling, no evidence of hematoma. No bleeding/drainage. R medial leg incision with dressing C/D/I, no bleed-through. Skin Skin Narrative: R lateral foot wound with dry eschar overlying, no surrounding erythema/swelling/drainage. 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 R DP and PT doppler signals are multiphasic, significantly improve from preop. Her rest pain is resolved. Her nausea has significantly improved, she continues to tolerate advances in her diet. She is voiding without difficulty. She was transitioned to therapeutic dosing of heparin this morning. Hgb was 8.8 this morning. Repeat this afternoon was 7.8. Will transfuse 1 unit PRBC. Continue therapeutic heparin and will recheck Hgb in the morning. PT/OT recommended rehab/SNF at discharge. She has been accepted to TCU, they will have a bed available on Saturday.
--- NOTE | 2023-12-27 09:12 | CASEMGMT ---
FRANCIS JEFFERSON Assessment Face to Face with patient for initial transition planning/care coordination assessment. FRANCIS JEFFERSON introduced self and role at [facility], pt voices understanding. Pt is A&Ox4 and is resting comfortably in bed and is calm. Care providers, pharmacy, and demographics verified. Admitting dx: Femoral Endarterectomy LACE Strata: 2 PCP: Ge Montero Specialists: Britt Matos [facility]acy: [facility] Insurance: [facility] A/B, [employer] Prescription Benefit: Yes LNOK: Joselo Garnett (son) Living Arrangements: Pt lives alone in a single story home with a BM that she does not use. Pt states that there are 5 steps in the front of the house and 2 steps in the back. Pt states that she normally uses the back to enter ADLs/IADLs: States independent at baseline Transportation: Self, Son DME: Cane, FWW, Knee scooter. Pt denies all other DME uses or needs HHC/SNF: Denies history Pt?s goal: Return to PLOF Plan: TBD. Home with HH vs TCU/RU. 6-Click is 12. Pt states that she does not want to go to an outside SNF. Pt states that she would like to stay here at [facility] if she is requiring further rehabilitation. SW notified. PT evaluation is pending. Pt reports that if she does well with therapy and can go home that she would like HHC. Pt denies wanting to see a list of local in-network HHC companies and states that she would like to have [facility] HHC if she goes home. RONNY and SW to follow. Adan Robin RN, CM
[2023-12-27] MEDS: HEPARIN/D5w 25,000 UNITS 25,000 UNITS/250 ML IV.SOLN. 10 UNITS CONT INF (09:54)
[2023-12-27] MEDS: Carvedilol 12.5 MG Tablet PO ×2 (10:26→21:56)
[2023-12-27] MEDS: Lisinopril 5 MG Tablet PO (11:31)
[2023-12-27] MEDS: Spironolactone 25 MG Tablet PO (11:31)
[2023-12-27 11:46] LABS: Bedside Glucose 165 mg/dL (74-106)
--- NOTE | 2023-12-27 13:17 | CASEMGMT ---
PT is recommending skilled therapy after DC to help the pt return to PLOF. A list of local in-network SNF provided to the pt at this time. This list was printed by the SW via [employer]. Pt states that she would like to stay here in the hospital still and would prefer RU/TCU. Pt educated that the in the RU the pt would have to be able to withstand 3 hours of therapy per day. Pt states that she is unsure if she would be able to handle this or not. Pt states to try TCU first. SW updated and referral made to TCU at this time.
--- NOTE | 2023-12-27 14:03 | CASEMGMT ---
Social Work Pt is accepted in TCU and can go Saturday. Green sheet placed on chart in anticipation of Saturday discharge. SW let pt know, she is agreeable. SW offered to call son, she states she will let him know. Plan: TCU Saturday, Skilled. NICK Quintanilla
[2023-12-27 16:14] LABS: Hemoglobin 7.8 g/dL (12.0-15.0)
[2023-12-27 16:25] LABS: Partial Thromboplast Time 129.7 Seconds (24.1-36.2)
[2023-12-27 16:36] LABS: Bedside Glucose 114 mg/dL (74-106)
--- NOTE | 2023-12-27 21:44 | PCM.DC.SUM ---
Documented by User: RICKI Burton 12/27/23 21:55 Providers Date of Admission: 12/26/23 Date of Discharge: 12/29/23 Primary Care Physician: Dr. 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 R DP and PT doppler signals are multiphasic, significantly improve from preop. Her rest pain is resolved. Her nausea has significantly improved, she continues to tolerate advances in her diet. She is voiding without difficulty. She was transitioned to therapeutic dosing of heparin this morning. Hgb was 8.8 this morning. Repeat this afternoon was 7.8. Will transfuse 1 unit PRBC. Continue therapeutic heparin and will recheck Hgb in the morning. PT/OT recommended rehab/SNF at discharge. She has been accepted to TCU, they will have a bed available on Saturday. Medications at Discharge Home Medications carvedilol 12.5 mg tablet 12.5 mg PO BID HEART 01/22/23 clopidogrel 75 mg tablet 75 mg PO DAILY BLOOD THINNER 01/22/23 lisinopril 5 mg tablet 5 mg PO DAILY BP 01/22/23 rosuvastatin 20 mg tablet 20 mg PO QHS CHOLESTEROL 01/22/23 spironolactone 25 mg tablet 25 mg PO DAILY WATER PILL 01/22/23 glimepiride 2 mg tablet 2 mg PO DAILY DIABETES 01/30/23 prochlorperazine maleate 5 mg tablet (Compazine) 5 mg PO TID PRN nausea and vomiting #14 tabs 12/12/23 tramadol 50 mg tablet 50 mg PO Q6H PRN PRN pain 12/20/23 rivaroxaban 20 mg tablet (Xarelto) 20 mg PO DAILY #30 tabs 12/27/23 Hospital Course Summary of Care Provided Hospital Course: Liliana Garnett is a 73 y/o female who underwent R external iliac artery stenting, R common and profunda femoral endarterectomy, R femoral to below knee bypass with cadaver saphenous vein, R sartorius flap on 12/26/23. This was performed secondary to atherosclerosis with rest pain and nonhealing wound of the R foot in the setting of multiple prior revascularizations. She tolerated the procedure well. Following surgery, she was routinely admitted to the ICU for hemodynamic monitoring. Upon arrival in the ICU, she was very nauseos and vomiting after receiving dilaudid in PACU. She does have a history of nausea and vomiting with dilaudid/oxycodone/percocet. Switched to primarily manage her pain with tramadol and tylenol. Her nausea improved with time and her diet was able to be advanced. She did have significantly improved R DP and PT doppler signals postoperatively, her R foot was warm and pink, and her rest pain had resolved. Her pain was limited to the surgical sites and this was well controlled with tramadol/tylenol. She was evaluated by PT/OT who felt she would benefit from further therapy prior to discharge home. She was accepted to TCU and will discharge there. She will be discharged on Xarelto 20mg daily, Plavix 75 mg daily, and ASA 81mg daily. She will follow-up in the office as scheduled on 02/04/24. Weight / BMI Weight Weight: 143 lb 4.807 oz Body Mass Index (BMI) 27.1 ABG / Lab / Microbiology Data 12/29/23 05:00 12/27/23 03:35 Laboratory: Laboratory Results - last 24 hr 12/20/23 12:05: Blood Type Cancelled, A1 Antigen Typing Cancelled, Rho(D) Type Cancelled, Antibody Screen Cancelled, Crossmatch See Detail 12/27/23 03:35: WBC 15.5 H, RBC 2.79 L, Hgb 8.8 L, Hct 26.3 L, MCV 94.3, MCH 31.5, MCHC 33.5, RDW Std Deviation 43.1, RDW Coeff of Pricila 12.5, Plt Count 181, MPV 9.9, Immature Gran % (Auto) 1.200 H, Neut % (Auto) 85.0 H, Lymph % (Auto) 6.1 L, Woods % (Auto) 7.6, Eos % (Auto) 0.0, Baso % (Auto) 0.1, Absolute Neuts (auto) 13.2 H, Absolute Lymphs (auto) 0.95, Nucleated RBC % 0, APTT 49.1 H, Sodium 140, Potassium 4.4, Chloride 108 H, Carbon Dioxide 23.0, Anion Gap 9, BUN 28 H, Creatinine 1.15 H, Estim Creat Clear Calc 35.69, Est GFR (MDRD) Af Amer 59 L, Est GFR (MDRD) Non-Af 49 L, BUN/Creatinine Ratio 24.3 H, Glucose 218 H, Calcium 7.8 L 12/27/23 08:02: POC Glucose 170 H 12/27/23 11:28: POC Glucose 165 H 12/27/23 16:00: APTT 129.7 H* 12/27/23 16:05: Hgb 7.8 L 12/27/23 16:18: POC Glucose 114 H D/C Instructions Discharge Diet: Carb Control Diet Weight Bearing Status: Weight bearing as tolerated Lifting Restricted to (Lbs): 20 Lifting Restrictions: Do not lift greater than 20 pounds for 3 weeks Call your doctor if your incision/area has: Sudden Increased Bleeding, Increased Pain/ Swelling and Foul Smelling Discharge Call your doctor if you observe: Fever of 101 or Higher and Uncontrolled pain Remove Dressing in: 1 week (dressings may be removed on 01/02/24) Please Follow Up With: Suzan Fernandez PA When: 02/04/24 Meaningful Use Info Ischemic Stroke Statin Dosing Therapy Reference: STATIN DOSE THERAPY REFERENCE: * Patients > 75 years receive moderate or high dose statin therapy. * Patients 75 years or YOUNGER should receive HIGH intensity statin dose unless contraindicated. You will be required to document reason for non-treatment if statin daily dose does not meet guidelines. HIGH DOSE STATIN THERAPY DAILY Atorvastatin > than or = to 40 mg Rosuvastatin > than or = to 20 mg Amlodipine + Atorvastatin > than or = to 2.5/40 mg Ezetimibe + Simvastatin 10/80 mg Simvastatin 80mg Discharge Plan Admission Admit Date/Time: 12/26/23 05:26 Attending Provider: Bennett De La Torre Primary Care Provider: Ge Montero Instructions Additional Instructions / Restrictions: Your right groin incision site is covered with a Prevena vacuum dressing. This will remain in place for 1 week after surgery, plan to remove it on 01/02/24. It may be removed sooner as needed if good seal is not able to be maintained. Your right lower leg incision site is covered with a post-operative dressing which is also to remain in place for 1 week, until 01/02/24. Both incision are closed with surgical glue. Once the dressings are removed, they may be left open to air. Do not submerge the incision sites in water for 3 weeks. Do not lift greater than 20 pounds for 3 weeks otherwise please continue with activity as tolerated. You have been started on Xarelto 20mg daily. Please continue to take this as prescribed in addition to your Plavix 75mg daily and Aspirin 81mg daily. You are scheduled for follow-up in the vascular office on 02/04/24. If you need to change this appointment or have any other questions or concerns please contact the office at [phone]. Discharge Orders/Prescriptions Prescriptions: New Xarelto 20 mg tablet 20 mg PO DAILY Qty: 30 1RF Rx Instructions: must administer with evening meal Continued spironolactone 25 mg tablet 25 mg PO DAILY clopidogrel 75 mg tablet 75 mg PO DAILY carvedilol 12.5 mg tablet 12.5 mg PO BID Rx Instructions: must administer with a meal/food rosuvastatin 20 mg tablet 20 mg PO QHS glimepiride 2 mg tablet 2 mg PO DAILY Patient Comments: TAKE 1 TABLET BY MOUTH ONCE DAILY prochlorperazine maleate [Compazine] 5 mg tablet 5 mg PO TID PRN (Reason: nausea and vomiting) Qty: 14 0RF tramadol 50 mg tablet 50 mg PO Q6H PRN PRN (Reason: pain) Held lisinopril 5 mg tablet 5 mg PO DAILY Hold Instructions: Resume on 01/06/24. ok to resume sooner if hypertension returns Discontinued aspirin [Adult Aspirin Regimen] 81 mg tablet,delayed release (DR/EC) 81 mg PO DAILY Referrals / Follow Up: Ge Montero MD [Primary Care Provider] - Disposition Disposition (needs filled in before D/C Order can be placed): Residential Facility Documented by User: Dr. 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 Medications at Discharge Home Medications carvedilol 12.5 mg tablet 12.5 mg PO BID HEART 01/22/23 clopidogrel 75 mg tablet 75 mg PO DAILY BLOOD THINNER 01/22/23 lisinopril 5 mg tablet 5 mg PO DAILY BP 01/22/23 rosuvastatin 20 mg tablet 20 mg PO QHS CHOLESTEROL 01/22/23 spironolactone 25 mg tablet 25 mg PO DAILY WATER PILL 01/22/23 glimepiride 2 mg tablet 2 mg PO DAILY DIABETES 01/30/23 prochlorperazine maleate 5 mg tablet (Compazine) 5 mg PO TID PRN nausea and vomiting #14 tabs 12/12/23 tramadol 50 mg tablet 50 mg PO Q6H PRN PRN pain 12/20/23 rivaroxaban 20 mg tablet (Xarelto) 20 mg PO DAILY #30 tabs 12/27/23 Hospital Course Summary of Care Provided Hospital Course: Liliana Garnett is a 73 y/o female who underwent R external iliac artery stenting, R common and profunda femoral endarterectomy, R femoral to below knee bypass with cadaver saphenous vein, R sartorius flap on 12/26/23. This was performed secondary to atherosclerosis with rest pain and nonhealing wound of the R foot in the setting of multiple prior revascularizations. She tolerated the procedure well. Following surgery, she was routinely admitted to the ICU for hemodynamic monitoring. Upon arrival in the ICU, she was very nauseous and vomiting after receiving dilaudid in PACU. She does have a history of nausea and vomiting with dilaudid/oxycodone/percocet. Switched to primarily manage her pain with tramadol and tylenol. Her nausea improved with time and her diet was able to be advanced. She did have significantly improved R DP and PT doppler signals postoperatively, her R foot was warm and pink, and her rest pain had resolved. Her pain was limited to the surgical sites and this was well controlled with tramadol/tylenol. Post op she had some fluctuation in Hgb, overall a drop form pre-op and some mild hypotension. Given these factors and her recent bypass she was transfused 1 uPRBC. She was evaluated by PT/OT who felt she would benefit from further therapy prior to discharge home. She was accepted to TCU and will discharge there. She will be discharged on Xarelto 20mg daily, Plavix 75 mg daily. She will follow-up in the office as scheduled on 02/04/24. Physical Exam Const alert, oriented x3, no apparent distress and healthy appearing General Appearance: cooperative; Negative for combative or lethargic Orientation / Consciousness: awake Exam Limitations: no limitations HEENT Head and Scalp: normocephalic and atraumatic Eyes EOMs intact bilaterally General Eye: normal appearance of both eyes Neck full ROM, no lymphadenopathy and thyroid normal General: trachea midline; Negative for lymphadenopathy or tenderness Thyroid: thyroid normal Resp normal respiratory effort and no use of accessory muscles Effort and Inspection: Negative for labored, stridor or audible wheezes Cardio regular rate and regular rhythm Peripheral Pulses: posterior tibial pulses present right dopplerable and dorsalis pedis pulses present right dopplerable Back/Spine Cervical Spine: cervical ROM normal Extremity full ROM, normal capillary refill and no clubbing, cyanosis or edema Skin no rashes or lesions noted and no wounds Neuro oriented x3, CN's II-XII intact bilaterally, no focal motor deficits and no sensory deficits noted Psych thought process normal, cooperative, affect normal, speech normal and activity/motor behavior normal ABG / Lab / Microbiology Data 12/29/23 05:00 12/27/23 03:35 Meaningful Use Info Meaningful Use Meaningful Use Diagnoses (Choose all that apply): None applicable Discharge Plan Admission Admit Date/Time: 12/26/23 05:26 Attending Provider: Bennett De La Torre Primary Care Provider: Ge Montero Instructions Additional Instructions / Restrictions: Your right groin incision site is covered with a Prevena vacuum dressing. This will remain in place for 1 week after surgery, plan to remove it on 01/02/24. It may be removed sooner as needed if good seal is not able to be maintained. Your right lower leg incision site is covered with a post-operative dressing which is also to remain in place for 1 week, until 01/02/24. Both incision are closed with surgical glue. Once the dressings are removed, they may be left open to air. Do not submerge the incision sites in water for 3 weeks. Do not lift greater than 20 pounds for 3 weeks otherwise please continue with activity as tolerated. You have been started on Xarelto 20mg daily. Please continue to take this as prescribed in addition to your Plavix 75mg daily and Aspirin 81mg daily. You are scheduled for follow-up in the vascular office on 02/04/24. If you need to change this appointment or have any other questions or concerns please contact the office at [phone]. Discharge Orders/Prescriptions Prescriptions: New Xarelto 20 mg tablet 20 mg PO DAILY Qty: 30 1RF Rx Instructions: must administer with evening meal Continued spironolactone 25 mg tablet 25 mg PO DAILY clopidogrel 75 mg tablet 75 mg PO DAILY carvedilol 12.5 mg tablet 12.5 mg PO BID Rx Instructions: must administer with a meal/food rosuvastatin 20 mg tablet 20 mg PO QHS glimepiride 2 mg tablet 2 mg PO DAILY Patient Comments: TAKE 1 TABLET BY MOUTH ONCE DAILY prochlorperazine maleate [Compazine] 5 mg tablet 5 mg PO TID PRN (Reason: nausea and vomiting) Qty: 14 0RF tramadol 50 mg tablet 50 mg PO Q6H PRN PRN (Reason: pain) Held lisinopril 5 mg tablet 5 mg PO DAILY Hold Instructions: Resume on 01/06/24. ok to resume sooner if hypertension returns Discontinued aspirin [Adult Aspirin Regimen] 81 mg tablet,delayed release (DR/EC) 81 mg PO DAILY Referrals / Follow Up: Ge Montero MD [Primary Care Provider] - Disposition Disposition (needs filled in before D/C Order can be placed): Residential Facility
[2023-12-27] MEDS: MELATONIN 3 MG TABLET PO (21:55)
--- NOTE | 2023-12-27 21:55 | PCM.TXEXTCAR ---
Diet Diet Order/Speech Therapy: 12/27/23 12:42 Diet: Cardiac: Calorie-Controlled Food consistency:: Regular Liquid Consistency:: Regular/Thin Dietary Modifications:: Consistent Carbohydrate How many daily calories?: 1600 calorie Wound(s) R groin: Wound Type: Surgical Incision (Prevena vacuum dressing in place, leave in place until 01/02/24) RLE: Wound Type: Surgical Incision (Covered by silver postop dressing, please leave in place and remove on 01/02/24) rt lateral foot: Wound Type: Stasis Ulcer Therapies Weight Bearing: Full weight bearing Physical Therapy: Eval and Treat Occupational Therapy: Eval and Treat Problem/Diagnosis (1) Atherosclerosis of [place] arteries of right leg with ulceration of heel and midfoot: Status: Chronic Code(s): I70.234 - Atherosclerosis of [place] arteries of right leg with ulceration of heel and midfoot Allergies/Procedures Done in Hospital Allergies cilostazol (From Pletal) Adverse Reaction (Intermediate, Verified 12/26/23 05:59) irregular heart beats/nose bleeds Type of Care/Length of Stay Estimated LOS: Convalescent Care Less Than 30 days Type of Care Needed: Skilled Rehab Potential: Good Prognosis: Good Additional Orders/Day of Discharge Day of Discharge: 12/29/23 Dietary and Speech Recommendations Dietitian Recommendations/Changes: Will change diet to 1600 calorie, consistent carbohydrate; cardiac. Fluid restriction as needed. ONS if PO established suboptimal with diet advancement to solid food from clear liquids. Follow Up Care Please Follow Up With: Suzan Fernandez PA When: 02/04/24 Discharge Plan Admission Admit Date/Time: 12/26/23 05:26 Attending Provider: Bennett De La Torre Primary Care Provider: Ge Montero Instructions Additional Instructions / Restrictions: Your right groin incision site is covered with a Prevena vacuum dressing. This will remain in place for 1 week after surgery, plan to remove it on 01/02/24. It may be removed sooner as needed if good seal is not able to be maintained. Your right lower leg incision site is covered with a post-operative dressing which is also to remain in place for 1 week, until 01/02/24. Both incision are closed with surgical glue. Once the dressings are removed, they may be left open to air. Do not submerge the incision sites in water for 3 weeks. Do not lift greater than 20 pounds for 3 weeks otherwise please continue with activity as tolerated. You have been started on Xarelto 20mg daily. Please continue to take this as prescribed in addition to your Plavix 75mg daily and Aspirin 81mg daily. You are scheduled for follow-up in the vascular office on 02/04/24. If you need to change this appointment or have any other questions or concerns please contact the office at [phone]. Discharge Orders/Prescriptions Prescriptions: New Xarelto 20 mg tablet 20 mg PO DAILY Qty: 30 1RF Rx Instructions: must administer with evening meal Continued spironolactone 25 mg tablet 25 mg PO DAILY clopidogrel 75 mg tablet 75 mg PO DAILY lisinopril 5 mg tablet 5 mg PO DAILY carvedilol 12.5 mg tablet 12.5 mg PO BID Rx Instructions: must administer with a meal/food rosuvastatin 20 mg tablet 20 mg PO QHS glimepiride 2 mg tablet 2 mg PO DAILY Patient Comments: TAKE 1 TABLET BY MOUTH ONCE DAILY prochlorperazine maleate [Compazine] 5 mg tablet 5 mg PO TID PRN (Reason: nausea and vomiting) Qty: 14 0RF tramadol 50 mg tablet 50 mg PO Q6H PRN PRN (Reason: pain) Discontinued aspirin [Adult Aspirin Regimen] 81 mg tablet,delayed release (DR/EC) 81 mg PO DAILY Referrals / Follow Up: Ge Montero MD [Primary Care Provider] - Disposition Disposition (needs filled in before D/C Order can be placed): [facility]
[2023-12-27] MEDS: Atorvastatin Calcium 40 MG Tablet PO (21:58)
[2023-12-27 22:27] LABS: Bedside Glucose 132 mg/dL (74-106)
[2023-12-28] VITALS (28 sets, daily range): BP systolic 92–141; BP diastolic 25–99; PULSE 75–108; RESP 10–25; TEMP 36.3–37.1; O2SAT 95–100; BMI 27.4
[2023-12-28 00:22] LABS: Partial Thromboplast Time 67.6 Seconds (24.1-36.2)
[2023-12-28] MEDS: traMADol 50 MG Tablet PO ×3 (04:03→20:42)
[2023-12-28] MEDS: Acetaminophen 500 MG Tablet 1000 MG PO ×3 (06:26→20:49)
[2023-12-28] MEDS: 0.9% Saline Lock 10 ML Syringe IV (06:27)
[2023-12-28 06:43] LABS: Hemoglobin 8.4 g/dL (12.0-15.0)
[2023-12-28 06:54] LABS: Partial Thromboplast Time 71.9 Seconds (24.1-36.2)
[2023-12-28] MEDS: Glimepiride 2 MG Tablet PO (08:26)
[2023-12-28 08:56] LABS: Bedside Glucose 142 mg/dL (74-106)
--- NOTE | 2023-12-28 10:39 | PN.SURG_ITS ---
Subjective Subjective Doing well, pain controlled, most discomfort at groin incision. Foot pain resolved. Objective Data Objective Data A&O x 3, NAD RRR resp non-labored, no accessory muscle use +DP/PT biphasic doppler signals Mild RLE edema Vital Signs: Vital Signs Temp Pulse Resp BP Pulse Ox O2 Del Method 98.6 F 87 15 141/54 H 100 Room Air 12/28/23 09:00 12/28/23 09:00 12/28/23 09:00 12/28/23 09:00 12/28/23 09:00 12/28/23 09:00 Oxygen Delivery Method Room Air Weight: 145 lb 4.554 oz Body Mass Index (BMI) 27.4 Intake & Output: Intake and Output for Last 24 Hours 12/26/23 12/27/23 12/28/23 23:59 23:59 23:59 Intake Total 570 / 570 2736.17 / 2736.17 204.59 / 204.59 Output Total 625 / 625 2150 / 2150 900 / 900 Balance -55 / -55 586.17 / 586.17 -695.41 / -695.41 Lab / Micro Data 12/28/23 06:30 12/27/23 03:35 Labs: Laboratory Results - last 24 hr 12/20/23 12:05: Blood Type Cancelled, A1 Antigen Typing Cancelled, Rho(D) Type Cancelled, Antibody Screen Cancelled, Crossmatch See Detail 12/27/23 11:28: POC Glucose 165 H 12/27/23 16:00: APTT 129.7 H* 12/27/23 16:05: Hgb 7.8 L 12/27/23 16:18: POC Glucose 114 H 12/27/23 21:55: POC Glucose 132 H 12/28/23 00:05: APTT 67.6 H 12/28/23 06:30: Hgb 8.4 L, APTT 71.9 H 12/28/23 08:23: POC Glucose 142 H Assessment & Plan Assessment/Plan (1) Atherosclerosis of [place] arteries of right leg with ulceration of heel and midfoot: PLAN: -TCU planning -Hgb improved; cont heparin drip, plan xarelto tomorrow -some low BP; bolus, hold lisinopril
[2023-12-28] MEDS: Spironolactone 25 MG Tablet PO (11:27)
[2023-12-28] MEDS: 0.9% Normal Saline (500mL Bag) 500 ML IV (11:27)
[2023-12-28] MEDS: Famotidine 20 MG Tablet PO ×2 (11:28→20:49)
[2023-12-28] MEDS: Insulin Lispro 100 UNIT/ML INSULN.PEN SC ×2 (11:28→20:47)
[2023-12-28] MEDS: Clopidogrel Bisulfate 75 MG Tablet PO (11:28)
[2023-12-28] MEDS: Carvedilol 12.5 MG Tablet PO ×2 (11:28→20:49)
[2023-12-28] MEDS: Aspirin E.C. 81 MG Tablet PO (11:28)
[2023-12-28 12:01] LABS: Bedside Glucose 249 mg/dL (74-106)
[2023-12-28 13:33] LABS: Partial Thromboplast Time 65.1 Seconds (24.1-36.2)
[2023-12-28 16:55] LABS: Bedside Glucose 149 mg/dL (74-106)
--- NOTE | 2023-12-28 18:37 | NURSING ---
1809-RN notified by [employer] about blood on patient's dressing. RN assessed small amount of dark red on dressing. Outlined with a pen to reassess. 1829-Reassessed drainage and found no new bleeding outside of the outlined area.
[2023-12-28] MEDS: MELATONIN 3 MG TABLET PO (20:42)
[2023-12-28] MEDS: HEPARIN/D5w 25,000 UNITS 25,000 UNITS/250 ML IV.SOLN. 7 UNITS CONT INF (20:43)
[2023-12-28] MEDS: Docusate Sodium 100 MG Capsule PO (20:49)
[2023-12-28] MEDS: Atorvastatin Calcium 40 MG Tablet PO (20:49)
[2023-12-28 21:26] LABS: Bedside Glucose 184 mg/dL (74-106)
[2023-12-29] VITALS (17 sets, daily range): BP systolic 97–142; BP diastolic 31–114; PULSE 76–102; RESP 13–19; TEMP 36.1–36.6; O2SAT 95–100; BMI 27.8
[2023-12-29] MEDS: Acetaminophen 500 MG Tablet 1000 MG PO ×2 (04:56→12:53)
[2023-12-29] MEDS: traMADol 50 MG Tablet PO (04:57)
[2023-12-29] MEDS: 0.9% Saline Lock 10 ML Syringe IV ×2 (04:58→05:03)
[2023-12-29 05:15] LABS: Hemoglobin 7.6 g/dL (12.0-15.0)
[2023-12-29 07:51] LABS: Bedside Glucose 140 mg/dL (74-106)
--- NOTE | 2023-12-29 08:47 | PN.SURG_ITS ---
Subjective Subjective Doing well, pain controlled, BP still on low side. Objective Data Objective Data A&O x 3, NAD RRR resp non labored biphasic DP/PT Vital Signs: Vital Signs Temp Pulse Resp BP Pulse Ox O2 Del Method 97.6 F L 88 14 102/63 100 Room Air 12/29/23 03:00 12/29/23 07:00 12/29/23 07:00 12/29/23 07:00 12/29/23 07:00 12/29/23 07:22 Oxygen Delivery Method Room Air Weight: 147 lb 7.828 oz Body Mass Index (BMI) 27.8 Intake & Output: Intake and Output for Last 24 Hours 12/27/23 12/28/23 12/29/23 23:59 23:59 23:59 Intake Total 2736.17 / 2736.17 1644.10 / 1644.10 67.10 / 67.10 Output Total 2150 / 2150 900 / 900 Balance 586.17 / 586.17 744.10 / 744.10 67.10 / 67.10 Lab / Micro Data 12/29/23 05:00 12/27/23 03:35 Labs: Laboratory Results - last 24 hr 12/28/23 08:23: POC Glucose 142 H 12/28/23 11:26: POC Glucose 249 H 12/28/23 12:49: APTT 65.1 H 12/28/23 16:35: POC Glucose 149 H 12/28/23 20:47: POC Glucose 184 H 12/29/23 05:00: Hgb 7.6 L, APTT 218.0 H* 12/29/23 07:31: POC Glucose 140 H Assessment & Plan Assessment/Plan (1) Atherosclerosis of [place] arteries of right leg with ulceration of heel and midfoot: PLAN: -hgb back down today; 1 uprbc -xarelto today, stop heparin -vasac exam stable -cont to hold lisinopril -ok for tcu today
[2023-12-29] MEDS: Carvedilol 12.5 MG Tablet PO (09:06)
[2023-12-29] MEDS: Lisinopril 5 MG Tablet PO (09:07)
[2023-12-29] MEDS: Spironolactone 25 MG Tablet PO (09:07)
[2023-12-29] MEDS: Glimepiride 2 MG Tablet PO (09:08)
[2023-12-29] MEDS: Clopidogrel Bisulfate 75 MG Tablet PO (09:08)
[2023-12-29] MEDS: Famotidine 20 MG Tablet PO (09:08)
[2023-12-29] MEDS: Aspirin E.C. 81 MG Tablet PO (09:10)
[2023-12-29] MEDS: Insulin Lispro 100 UNIT/ML INSULN.PEN SC (11:23)
[2023-12-29 11:46] LABS: Bedside Glucose 174 mg/dL (74-106)
== END 2023-12-29 14:05 | disposition skilled nursing facility (03) | DRG 271 ==
LOC: ACINP 05:27 → ICU 08:50
PROVIDERS: Anesthesiology; Physician Assistant; Admitting Provider Surgery Trauma Surgery; PCP Family Medicine; Referring Provider Surgery Trauma Surgery; Visit Provider Surgery Trauma Surgery
PROC: 04CH0ZZ Extirpation of Matter from Right External Iliac Artery, Open Approach (ICD-10-PCS; principal; 2023-12-26 07:10)
DX: E11.51 Type 2 diabetes mellitus with diabetic peripheral angiopathy without gangrene (principal); L97.419 Non-pressure chronic ulcer of right heel and midfoot with unspecified severity; I70.92 Chronic total occlusion of artery of the extremities; I70.234 Atherosclerosis of native arteries of right leg with ulceration of heel and midfoot; I10 Essential (primary) hypertension; E78.00 Pure hypercholesterolemia, unspecified; I95.81 Postprocedural hypotension; Z79.02 Long term (current) use of antithrombotics/antiplatelets; Z79.84 Long term (current) use of oral hypoglycemic drugs; Z79.899 Other long term (current) drug therapy; Z95.820 Peripheral vascular angioplasty status with implants and grafts; Z87.891 Personal history of nicotine dependence
CPT/HCPCS: 36415; 76000; 80048; 82962; 83036; 85014; 85018; 85025; 85730; 86850; 86900; 86901; 86920; 86922; 88304; 88311; 94668; 94762; 97162; 97166; 97530; 97802; 99252; A4648; C1769; C1894; J7030; J7040; J7120; P9040; A4216; C1725; G0463; J2405

== ENCOUNTER 2023-12-29 14:35 | Inpatient (IN) | payer MEDICARE, OTHER, SELFPAY ==
[2023-12-29 15:03] VITALS: BP 116/45; PULSE 89; RESP 18; TEMP 35.8; O2SAT 96; BMI 27.0; BMI 27.1
[2023-12-29 15:18] VITALS: BP 116/45; PULSE 89; RESP 17; TEMP 35.8; O2SAT 96
[2023-12-29 16:25] VITALS: PULSE 89; RESP 18; O2SAT 96
[2023-12-29] MEDS: Carvedilol 12.5 MG Tablet PO (17:06)
[2023-12-29] MEDS: Rivaroxaban 20 MG Tablet PO (17:06)
--- NOTE | 2023-12-29 20:19 | HP.PCM_ITS ---
HPI - General General Date of Admission: 12/29/23 Date of Service: 12/30/23 Chief Complaint: Here for rehabilitation. HPI Narrative 12/26/2023 ESTEFANIA COWAN, is a 73 Female who presents with followin12/26/2023 Admit [facility]. 12/26/2023 Dr. De La Torre performed right common femoral endarterectomy. Right profunda endarterectomy. Right external iliac stent. Right fem-BK popliteal bypass with cadaver GSV. Right sartorius flap. 12/27/2023 Rest pain resolved, claudication pain resolved. Groin incision pain with movement. Right headache, nausea improved, tolerating advancing diet. PT/OT SNF. Hemoglobin 8.8, repeat hemoglobin 7.8, transfuse 1 unit PRBC. 12/28/2023 Hemoglobin 8.4, continue Heparin drip, transition to Xarelto tomorrow. Hold Lisinopril, IV fluid bolus for low blood pressure. 12/29/2023 Pain controlled, blood pressure low, hold Lisinopril. Hemoglobin down, transfuse 1 unit PRBC. Stop heparin drip, start Xarelto. 12/29/2023 Admit to TCU with debility, here for rehabilitation, strengthening, prior to discharge home alone. REPLACED BY [facility] Medical History Post-menopausal Anxiety Discoloration of skin Arthritis Uses wheelchair Walker as ambulation aid Anemia Back pain Dietary restriction History of diverticulitis Heartburn Leg cramps History of pain when walking History of edema Wears glasses Wears dentures Diabetes High cholesterol Hypertension Former smoker History of echocardiogram History of stress test Cardiology follow-up encounter History of CHF (congestive heart failure) Home Medications ?Medication ?Instructions ?Recorded ?Last Taken ?Type carvedilol 12.5 mg tablet 12.5 mg PO BID HEART 01/22/23 12/26/23 History clopidogrel 75 mg tablet 75 mg PO DAILY BLOOD THINNER 01/22/23 12/26/23 History lisinopril 5 mg tablet 5 mg PO DAILY BP 01/22/23 12/26/23 History rosuvastatin 20 mg tablet 20 mg PO QHS CHOLESTEROL 01/22/23 12/25/23 History spironolactone 25 mg tablet 25 mg PO DAILY WATER PILL 01/22/23 12/25/23 History glimepiride 2 mg tablet 2 mg PO DAILY DIABETES 01/30/23 12/25/23 History prochlorperazine maleate 5 mg 5 mg PO TID PRN nausea and 12/12/23 Unknown Rx tablet (Compazine) vomiting #14 tabs tramadol 50 mg tablet 50 mg PO Q6H PRN PRN pain 12/20/23 12/25/23 History rivaroxaban 20 mg tablet (Xarelto) 20 mg PO DAILY clot prevention #30 12/27/23 Unknown Rx tabs Allergy/AdvReac Type Severity Reaction Status Date / Time cilostazol (From Pletal) AdvReac Intermediate irregular Verified 12/26/23 05:59 heart beats/nose bleeds Surgical History Hx of colonoscopy Hx of extremity bypass graft History of angioplasty History of carotid angioplasty History of cholecystectomy (~2010) History of hand surgery History of carpal tunnel surgery History of hysterectomy (~1999) Social History (Updated 12/29/23 @ 20:[address] Jamel Matthews MD) household members: none Smoking Status: Former smoker alcohol intake: never substance use type: does not use ROS Constitutional Constitutional: Reports weakness; Denies chills, fever(s) or weight gain ENT HEENT: Reports epistaxis; Denies headache(s), nasal congestion or nasal discharge Cardiovascular Cardiovascular: Reports edema; Denies chest pain or palpitations Respiratory/Chest Respiratory/Chest: Denies cough, excessive phlegm production or shortness of breath with exertion Gastrointestinal Gastrointestinal: Reports abdominal pain and other Details: Right groin pain. ; Denies nausea or vomiting Genitourinary Genitourinary: Denies dysuria Musculoskeletal Musculoskeletal: Denies joint pain or joint swelling Integumentary Integumentary: Denies rash or wounds Neurologic Neurologic: Denies focal weakness, numbness or tingling Psychiatric Psychiatric: Denies anxiety, auditory hallucinations, depression, homicidal ideation or suicidal ideation Vital Signs Vital Signs Vital Signs: 12/29/23 15:03 12/29/23 15:18 12/29/23 15:33 Temperature 96.5 F L 96.5 F L Temperature Source Temporal Temporal Pulse Rate 89 89 Pulse Rhythm Pulse Strength Normal (2+) Respiratory Rate 18 17 Respiratory Effort Respiratory Depth Respiratory Pattern Blood Pressure 116/45 L 116/45 L Blood Pressure Mean 68 68 Blood Pressure Source Monitor Blood Pressure Position Semi-Fowlers Blood Pressure Location Right Arm Pulse Ox 96 96 Oxygen Delivery Method Room Air Room Air 12/29/23 16:25 Temperature Temperature Source Pulse Rate 89 Pulse Rhythm Regular Pulse Strength Normal (2+) Respiratory Rate 18 Respiratory Effort Normal Non-Labored Respiratory Depth Normal Respiratory Pattern Normal Blood Pressure Blood Pressure Mean Blood Pressure Source Blood Pressure Position Blood Pressure Location Pulse Ox 96 Oxygen Delivery Method Room Air Weight Weight: 64.982 kg Body Mass Index (BMI) 27.1 Physical Exam Const alert General Appearance: cooperative HEENT normocephalic Eyes PERRL and EOMs intact bilaterally Neck supple, no JVD and no carotid bruits Resp normal respiratory effort, normal air movement and clear to auscultation bilaterally Cardio regular rate and regular rhythm GI normal to inspection, nondistended, normoactive bowel sounds, non-tender and non-distended Extremity normal capillary refill Extremity Narrative: Right groin wound VAC, right medial lower extremity dressing. 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 De La Torre, complicated by acute blood loss anemia, hypotension, admitted to TCU with debility, here for rehabilitation, strengthening, prior to discharge home alone. * Debility - PT/OT. * Pain - Tylenol 1000mg q6 prn pain (1-3), Tramadol 50mg q6 prn pain (4-10). * Bowel - senna/colace 1 tablet bid, Magnesium citrate 300ml daily prn. * Adult immunization - Administer pneumonia vaccine, covid vaccine, flu vaccine as appropriate. * DVT prophylaxis - on Xarelto. * Hyperlipidemia - Atorvastatin 40mg qhs. * Hypertension - Coreg 12.5mg bidcm, Lisinopril 5mg daily, Aldactone 25mg daily. * PVD s/p RLE revascularization - Plavix 75mg daily, Xarelto 20mg daily thru 01/28/2024. Consult Dr. De La Torre/Suzan Fernandez to follow. * Diabetes Mellitus II - Glimepiride 2mg po qam. * Skin irritation - Calmoseptine topical bid. * Nausea - Compazine 5mg tid prn. * Swelling right lower extremity - Doppler ultrasound right lower extremity. * Epistaxis - Resident told me she had quarter size blood clot from nose, order [place] nasal spray, we discussed importance of blood thinners after her surgery.
[2023-12-29] MEDS: traMADol 50 MG Tablet PO (21:33)
[2023-12-29] MEDS: Menthol/Lanolin/Calamine/Znox 113 GM Tube 1 APPLIC TOPICAL (21:33)
[2023-12-29] MEDS: Atorvastatin Calcium 40 MG Tablet PO (21:34)
[2023-12-29] MEDS: Senna/Docusate Sodium 1 Tablet PO (21:34)
[2023-12-30] MEDS: Acetaminophen 500 MG Tablet 1000 MG PO ×2 (00:38→22:38)
[2023-12-30 05:42] LABS: Absolute Lymphocyte Count 1.38 X10^3/uL (0.83-4.51); Basophil# 0.02 X10^3/uL; Basophil% 0.3 % (0-1); Eosinophil# 0.09 X10^3/uL; Eosinophils% 1.3 % (0-5); Hematocrit 27.2 % (37-47); Hemoglobin 9.3 g/dL (12.0-15.0); Lymphocyte # 1.38 X10^3/ul (0.83-4.51); Lymphocyte % 19.2 % (19-41); Mean Corp Hgb Conc 34.2 g/dL (32-36); Mean Corpuscular Hgb 30.6 pg (27.0-32.0); Mean Corpuscular Volume 89.5 fL (81-99); Monocyte# 0.64 X10^3/uL; Monocyte% 8.9 % (0-10); NRBC Flagged by Analyzer 0.4 % (0-5); Neutrophil # 4.99 X10^3/uL (2.7-7.7); Neutrophil % 69.3 % (47-70); Platelet Count 160 K/mm3 (150-450); RBC Distribution Width CV 15.1 % (11.6-14.6); RBC Distribution Width SD 48.9 fl (35.1-43.9); Red Blood Count 3.04 M/mm3 (4.2-5.4); White Blood Count 7.2 K/mm3 (4.4-11.0)
[2023-12-30 05:57] LABS: Anion Gap 5 (5-15); BUN 18 mg/dL (7-18); BUN/Creat Ratio 27.7 RATIO (10-20); Calcium,Total 8.7 mg/dL (8.5-10.1); Chloride 106 mmol/L (98-107); Creatinine, Serum 0.65 mg/dL (0.55-1.02); EST Glomerular Filtration Rate 95 mL/min (>60); Est Glom Filt Rate - Afr Amer 114 mL/min (>60); Estimated Creatinine Clearance 52.44 ml/min; Glucose 133 mg/dL (74-106); Potassium 4.1 mmol/L (3.5-5.1); Sodium Level 135 mmol/L (136-145)
[2023-12-30 06:35] LABS: Bedside Glucose 114 mg/dL (74-106)
--- NOTE | 2023-12-30 07:00 | NURSING ---
Epistaxis <5min. Patient reports history of epistaxis while taking xarelto in the past. Written communication left for Dr. Matthews. Epistaxis resolved at this time, no distress observed or reported. Call light in reach.
[2023-12-30] MEDS: Glimepiride 2 MG Tablet PO (09:16)
[2023-12-30] MEDS: Menthol/Lanolin/Calamine/Znox 113 GM Tube 1 APPLIC TOPICAL ×2 (09:17→22:32)
[2023-12-30] MEDS: Clopidogrel Bisulfate 75 MG Tablet PO (09:17)
[2023-12-30] MEDS: Carvedilol 12.5 MG Tablet PO ×2 (09:18→16:36)
[2023-12-30] MEDS: Spironolactone 25 MG Tablet PO (09:19)
[2023-12-30] MEDS: traMADol 50 MG Tablet PO ×3 (09:21→22:40)
[2023-12-30] MEDS: Tuberculin,Purif.prot.deriv. 50 TU/ML Vial 0.1 ML ID (09:24)
[2023-12-30 09:27] VITALS: BP 109/52; PULSE 86
[2023-12-30 10:00] VITALS: O2SAT 96
--- NOTE | 2023-12-30 10:34 | NURSING ---
Offered covid vaccine, VIS provided. Patient refuses at this time.
--- NOTE | 2023-12-30 10:40 | NURSING ---
Left VM with vascular office about consult, requested return call.
--- NOTE | 2023-12-30 11:03 | PCM.PN.DRR ---
Documented by User: Temitope Chisholm 12/30/23 11:16 TCU RX Drug Regimen Review Subjective/Objective Subjective/Objective: Subjective: TCU Admission. 73 YOF presented for R common femoral endarterectomy. Underwent revascularization surgery right lower extremity 12/26/[address] De La Torre, complicated by acute blood loss anemia, hypotension. Admitted to TCU with debility for strengthening and rehabilitation. Objective: Allergies cilostazol (From Pletal) Adverse Reaction (Intermediate, Verified 12/26/23 05:59) irregular heart beats/nose bleeds Current Medications Generic Name Dose Route Start Last Admin Trade Name Freq PRN Reason Stop Dose Admin Acetaminophen 1,000 mg 12/29/23 20:32 12/30/23 00:38 Acetaminophen 500 Mg Tablet PO 1,000 mg Q6H PRN PRN Administration Pain Score 1-3 Atorvastatin Calcium 40 mg 12/29/23 22:00 12/29/23 21:34 Atorvastatin Calcium 40 Mg Tablet PO 40 mg QHS GLENNY Administration Calamine/Phenol 1 applic 12/29/23 22:00 12/30/23 09:17 Menthol/Lanolin/Calamine/Znox 113 Gm Tube TOPICAL 1 applic BID GLENNY Administration Protocol Carvedilol 12.5 mg 12/29/23 17:00 12/30/23 09:18 Carvedilol 12.5 Mg Tablet PO 12.5 mg BIDCM GLENNY Administration Protocol Clopidogrel Bisulfate 75 mg 12/30/23 10:00 12/30/23 09:17 Clopidogrel Bisulfate 75 Mg Tablet PO 75 mg DAILY GLENNY Administration Glimepiride 2 mg 12/30/23 08:00 12/30/23 09:16 Glimepiride 2 Mg Tablet PO 2 mg BREAKFAST GLENNY Administration Lisinopril 5 mg 01/06/24 10:00 Lisinopril 5 Mg Tablet PO DAILY GLENNY Protocol Magnesium Citrate 300 ml 12/29/23 20:32 Magnesium Citrate 300 Ml PO DAILY PRN Constipation Prochlorperazine Maleate 5 mg 12/29/23 15:14 Prochlorperazine 5 Mg Tablet PO TID PRN nausea and vomiting Rivaroxaban 20 mg 12/29/23 17:00 12/29/23 17:06 Rivaroxaban 20 Mg Tablet PO 01/28/24 17:01 20 mg DINNER GLENNY Administration Senna/Docusate Sodium 1 tablet 12/29/23 22:00 12/30/23 09:17 Senna/Docusate Sodium 1 Tablet PO Not Given BID GLENNY Sodium Chloride 2 spray 12/30/23 07:20 Sodium Chloride 0.65% 1 [place].Btl NASAL TID PRN PRN NASAL DRYNESS Spironolactone 25 mg 12/30/23 10:00 12/30/23 09:19 Spironolactone 25 Mg Tablet PO 25 mg DAILY [facility] Administration Protocol Tramadol HCl 50 mg 12/29/23 20:34 12/30/23 09:21 Tramadol 50 Mg Tablet PO 50 mg Q6H PRN PRN Administration Pain Score 4-10 or Pre PT/OT Tuberculin PPD 0.1 ml 01/06/24 10:00 Tuberculin,Purif.Prot.Deriv. 50 Tu/Ml Vial ID 01/06/24 10:01 X1 ONE Problem List (Updated 12/29/23 @ 20:[address] 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 (Chronic) Arterial insufficiency (Acute) Vital Signs Temp Pulse Resp BP Pulse Ox O2 Del Method 96.5 F L 86 18 109/52 L 96 Room Air 12/29/23 15:18 12/30/23 09:27 12/29/23 16:25 12/30/23 09:27 12/29/23 16:25 12/29/23 16:25 Oxygen Delivery Method Room Air Weight: 64.982 kg Body Mass Index (BMI) 27.1 Sodium 135 mmol/L (136-145) L 12/30/23 05:10 Potassium 4.1 mmol/L (3.5-5.1) 12/30/23 05:10 Chloride 106 mmol/L (98-107) 12/30/23 05:10 Carbon Dioxide 24.0 mmol/L (21.0-32.0) 12/30/23 05:10 Anion Gap 5 (5-15) 12/30/23 05:10 BUN 18 mg/dL (7-18) 12/30/23 05:10 Creatinine 0.65 mg/dL (0.55-1.02) 12/30/23 05:10 Est GFR (MDRD) Af Amer 114 mL/min (>60) 12/30/23 05:10 Est GFR (MDRD) Non-Af 95 mL/min (>60) 12/30/23 05:10 BUN/Creatinine Ratio 27.7 RATIO (10-20) H 12/30/23 05:10 Glucose 133 mg/dL (74-106) H 12/30/23 05:10 Assessment/Plan: 1. Pain: acetaminophen 1000mg PO Q6 PRN pain (1-3) and tramadol 50mg PO Q6 PRN pain (4-10). Resident has taken a dose of acetaminophen (pain 6 in RLE) and two doses of tramadol (pain scores of 8 in groin/back/RLE). Pain seems controlled on the current regimen. Please continue to monitor for s/s of pain, fall risk (BEERs), creatinine (52 ml/min on 12/29), agitation, weakness, nausea, constipation, respiratory depression and PRN usage. 2. Bowel: senna/docusate 1T PO BID and magnesium citrate 300ml PO daily PRN constipation. No PRN usage at this time. Please continue to monitor for s/s of constipation/diarrhea, urine/stool discoloration and PRN usage. Last documented bowel movement on 12/28. 3. Hypertension: carvedilol 12.5 PO BIDCM, lisinopril 5mg PO daily, spironolactone 25mg PO daily. Please continue to monitor BP (109/52 on 12/29), HR (86 on 12/29), s/s of low blood pressure, renal function (BEERs), cough, edema, renal function (last SCr 0.65 mg/dL) and hyperkalemia (4.1 on 12/29). 4. Hyperlipidemia: atorvastatin 40mg PO QHS. Please consider ordering a lipid panel if clinically appropriate as there is no level in the chart. Thanks. Please continue to monitor for s/s or myalgia and myopathy. 5. DVT prophylaxis/PVD s/p RLE revascularization: clopidogrel 75mg PO daily and rivaroxaban 20mg PO daily thru 01/28/24. Please continue to monitor for s/s of internal bleed (Hgb 9.3 Hct 27.2 on 12/29), vomiting, and abdominal pain. Patient reporting epistaxis, [place] nasal spray ordered. 6. Diabetes Mellitus II: glimepiride 2mg PO QAM. Please continue to monitor BG (113 on 12/29), A1c (5.9% on 12/19), weight gain, and for s/s of hypoglycemia. 7. Nausea: prochlorperazine 5mg PO TID PRN nausea and vomiting. Resident has not had any doses. Please monitor for s/s of nausea, PRN usage, s/s of UTI (BEERs, if resident starts using doses), s/s of cognitive impairment (black box, if resident starts using doses), and drowsiness. 8. Skin irritation: Calmoseptine topically BID. Please monitor for skin irritation, redness, and ulcer formation. 9. Epistaxis: [place] nasal spray intranasally TID PRN nasal dryness. Please monitor for nose bleeds and PRN usage. No doses given at this time. Assessment/Plan for indications treated with psychotropic medications: None Medical chart and medication regimen reviewed. The following medication irregularities or issues were identified: 1. Atorvastatin 40mg PO QHS. Please consider ordering a lipid panel if clinically appropriate as there is no level in the chart. Thanks. Date Date of Note:: 12/30/23 Documented by User: Dr. Jamel Matthews MD 12/30/23 11:36 TCU RX Drug Regimen Review Provider Comments Provider responsibility Provider Comments to Recommendations by Pharmacy: Agree
--- NOTE | 2023-12-30 11:43 | CASEMGMT ---
Social Work SW met with pt and introduced self and role of SW. Psychosocial assessment completed. SW verified contacts and Full Code status. Pt states she has not completed advance directives and is not interested in additional information at this time. SW educated pt to Medicare benefit and copay coverage. Pt's goal is to return home alone and independently at time of discharge. SW will continue to follow for support and dc planning. WILLI Elliott
--- NOTE | 2023-12-30 12:27 | NURSING ---
Activity Coordinate Note; Activity Asset: Shine [place] is independent in her choice of daily activities. Liliana has a tablet she plays games on and was given word search puzzles. She will read, watch tv and visit w/family and friends. She welcomes visits with the solder cream maker and therapy dog when available. Staff will continue to remind her of weekly activities, encourage social activitiews and respect her right to say no.
--- NOTE | 2023-12-30 14:06 | CHAPLAIN ---
Type of Pastoral Visit _x__ Initial Visit ___ Follow-up Visit ___ On-call Visit ___ General Patient Visit ___ Spiritual Assessment ___ Family Conference ___ Bereavement ___ Rapid Response ___ Code Blue ___ Other (describe below) Pastoral Care Referral From _x__ Patient ___ Family ___ Nurse ___ Physician ___ Filling Machine Tender ___ Hospital Librarian ___ Other (describe below) Sacrament/Intervention _x__ Active listening ___ Anointing ___ Taoism ___ Bereavement ___ Communion ___ Berenice exploration ___ ___ Life review ___ Prayer ___ Reconciliation ___ Sacrament of Sick _x__ Supportive presence ___ Wedding ___ Other (describe below) Pastoral Comments patient is watching a game show on TV; pt admits to being anxious to go home and hopes to get through this all soon; pt has a great window view and talk is about the construction outside; asked some questions of the patient to assess her needs but pt is answering all with don't really need anything thing; pt appears to have good family support;
[2023-12-30 15:37] VITALS: BP 132/55; PULSE 96; RESP 16; TEMP 36.2; O2SAT 99
[2023-12-30] MEDS: Rivaroxaban 20 MG Tablet PO (16:36)
[2023-12-30] MEDS: Calcium Carbonate 500 MG Tablet PO (18:43)
[2023-12-30] MEDS: Atorvastatin Calcium 40 MG Tablet PO (22:38)
[2023-12-31 05:34] LABS: Hematocrit 27.9 % (37-47); Hemoglobin 9.3 g/dL (12.0-15.0)
[2023-12-31 05:39] LABS: Bedside Glucose 144 mg/dL (74-106)
[2023-12-31 06:00] VITALS: BP 108/60; PULSE 96; RESP 16; TEMP 36.6; O2SAT 99
[2023-12-31 06:28] LABS: Cholesterol 103 mg/dL (200); High Density Lipoprotein 46 mg/dL; Triglycerides 109 mg/dL; Very Low Density Lipoprotein 22 mg/dL (5-40)
[2023-12-31] MEDS: proCHLORPERazine 5 MG Tablet PO (06:43)
--- NOTE | 2023-12-31 06:46 | NURSING ---
Addendum entered by Rolanda Gannon 12/31/23 07:47: Offered saline nasal spray and resident declines. Original Note: THRESHER BROOMCORN reports resident is not feeling well. Resident is sitting on the edge of the bed finishing bathing. Reports nausea and just not feeling well. Denies any chest pain or palpitations. Thinks she is wheezing- no audible wheezes noted. Skin pale, warm, and dry. Respirations even and unlabored. Slight epistaxis. One small clot noted. Vitals obtained and recorded. HR slightly irregular. Assisted to supine position. Compazine administered as ordered- refer to MAR. Ice chips and fresh ice water given. Emesis bag within reach. No emesis at this time. Will continue to monitor. Call light w/ in reach.
[2023-12-31] MEDS: Glimepiride 2 MG Tablet PO (08:39)
[2023-12-31] MEDS: Carvedilol 12.5 MG Tablet PO ×2 (08:39→17:22)
[2023-12-31] MEDS: Spironolactone 25 MG Tablet PO (08:39)
[2023-12-31] MEDS: Menthol/Lanolin/Calamine/Znox 113 GM Tube 1 APPLIC TOPICAL ×2 (08:39→19:53)
[2023-12-31] MEDS: Clopidogrel Bisulfate 75 MG Tablet PO (08:40)
[2023-12-31] MEDS: Senna/Docusate Sodium 1 Tablet PO (08:40)
[2023-12-31 11:14] VITALS: BP 133/46; PULSE 91; RESP 18; TEMP 36.2; O2SAT 98
[2023-12-31 11:21] VITALS: BMI 26.7
[2023-12-31 17:19] VITALS: BP 138/52; PULSE 99
[2023-12-31] MEDS: Rivaroxaban 20 MG Tablet PO (17:22)
[2023-12-31] MEDS: Calcium Carbonate 500 MG Tablet PO (18:39)
[2023-12-31] MEDS: Atorvastatin Calcium 40 MG Tablet PO (19:52)
[2023-12-31 20:23] VITALS: PULSE 103; RESP 16; O2SAT 98
[2024-01-01] MEDS: traMADol 50 MG Tablet PO ×2 (03:44→09:51)
[2024-01-01 06:29] LABS: Bedside Glucose 140 mg/dL (74-106)
[2024-01-01 09:27] VITALS: BP 127/58; PULSE 102; RESP 20; TEMP 36.4; O2SAT 99
[2024-01-01] MEDS: Menthol/Lanolin/Calamine/Znox 113 GM Tube 1 APPLIC TOPICAL ×2 (09:28→22:24)
[2024-01-01] MEDS: Carvedilol 12.5 MG Tablet PO ×2 (09:28→17:41)
[2024-01-01] MEDS: Clopidogrel Bisulfate 75 MG Tablet PO (09:29)
[2024-01-01] MEDS: Glimepiride 2 MG Tablet PO (09:29)
[2024-01-01] MEDS: Senna/Docusate Sodium 1 Tablet PO ×2 (09:29→22:24)
[2024-01-01] MEDS: Spironolactone 25 MG Tablet PO (09:29)
--- NOTE | 2024-01-01 11:00 | CASEMGMT ---
Plan of care meeting held on this date with pt, pt's son and DIL Joselo and Tracee, pt's dgt Sunshine and pt's sister Fannie present. PT/OT/nutrition updated pt and family on pt's current status in TCU. Pt is participating well with therapy and making good progress. Pt currently with wound vac and pt reports this is to be removed tomorrow. Pt does have pain which is currently a limiting factor with therapy. JOCE informed pt and family of Medicare benefit and copay coverage. Pt lives at home alone and plans to return there upon discharge from TCU. If pt is discharged on Xaralto, pt will need a discount card as she is unable to afford this medication. JOCE will continue to follow for dc planning and support. WILLI Elliott
--- NOTE | 2024-01-01 16:15 | EX.PCM.CON.S ---
Assessment & Plan Assessment/Plan (1) Atherosclerosis of deering arteries of right leg with ulceration of heel and midfoot: PLAN: Remove RLE dressings tomorrow as planned. Incisions are closed with skin glue. Once these dressings are removed, okay to leave open to air. Okay to shower, pat gently to dry. Do not submerge the incision sites for 2 more weeks. RLE vascular exam is stable. RLE edema is likely secondary to reperfusion and should improve with time. Continue with elevation at rest. May apply OBDULIO wrap for compression as well. Outpatient follow-up in our office is scheduled on 02/04/24. Will plan to continue current anticoagulant and antiplatelet regimen at least until this office visit. Will also place orders for initial postoperative arterial duplex and LAST, can be completed while still in TCU or after discharge. HPI Consult Data Date of Consult: 01/01/24 HPI Narrative HPI Narrative: ESTEFANIA COWAN, is a 73 F who is s/p R common femoral and profunda femoral endarterectomy, R iliac stent, R femoral to below knee bypass with cadaver GSV on 12/26/23. Following discharge from the hospital she was admitted to TCU for further therapy and recovery prior to returning home. She has had resolution of her prior rest pain/claudication. She does have significant RLE edema following the procedure. She had a venous duplex which was negative for DVT. She remains on Xarelto 20mg daily, Plavix 75mg daily, and ASA 81mg daily. She has had occasional intermittent nose bleeds which are easily controlled with pressure. She has not had any bloody stools or hematuria. Repeat Hgb on 12/30 was stable at 9.3. She has been doing well with therapy, notes she would do a bit better with less swelling. She has been elevating her legs at rest. She does not have compression in place at this time. No issues or concerns at the incision sites, the dressings will be removed tomorrow. [facility] Medical History Post-menopausal Anxiety Discoloration of skin Arthritis Uses wheelchair Walker as ambulation aid Anemia Back pain Dietary restriction History of diverticulitis Heartburn Leg cramps History of pain when walking History of edema Wears glasses Wears dentures Diabetes High cholesterol Hypertension Former smoker History of echocardiogram History of stress test Cardiology follow-up encounter History of CHF (congestive heart failure) Home Medications ?Medication ?Instructions ?Recorded ?Last Taken ?Type carvedilol 12.5 mg tablet 12.5 mg PO BID HEART 01/22/23 12/26/23 History clopidogrel 75 mg tablet 75 mg PO DAILY BLOOD THINNER 01/22/23 12/26/23 History lisinopril 5 mg tablet 5 mg PO DAILY BP 01/22/23 12/26/23 History rosuvastatin 20 mg tablet 20 mg PO QHS CHOLESTEROL 01/22/23 12/25/23 History spironolactone 25 mg tablet 25 mg PO DAILY WATER PILL 01/22/23 12/25/23 History glimepiride 2 mg tablet 2 mg PO DAILY DIABETES 01/30/23 12/25/23 History prochlorperazine maleate 5 mg 5 mg PO TID PRN nausea and 12/12/23 Unknown Rx tablet (Compazine) vomiting #14 tabs tramadol 50 mg tablet 50 mg PO Q6H PRN PRN pain 12/20/23 12/25/23 History rivaroxaban 20 mg tablet (Xarelto) 20 mg PO DAILY clot prevention #30 12/27/23 Unknown Rx tabs Allergy/AdvReac Type Severity Reaction Status Date / Time cilostazol (From Pletal) AdvReac Intermediate irregular Verified 12/26/23 05:59 heart beats/nose bleeds Surgical History Hx of colonoscopy Hx of extremity bypass graft History of angioplasty History of carotid angioplasty History of cholecystectomy (~2010) History of hand surgery History of carpal tunnel surgery History of hysterectomy (~1999) Social History (Updated 12/29/23 @ 20:[address] Jamel Matthews MD) household members: none Smoking Status: Former smoker alcohol intake: never substance use type: does not use Physical Exam Const alert, oriented x3 and no apparent distress General Appearance: cooperative HEENT normocephalic, head/scalp atraumatic, hearing grossly normal bilaterally, external ears normal and external nose normal Eyes PERRL and EOMs intact bilaterally General Eye: normal appearance of both eyes Neck General: normal visual inspection and trachea midline Resp normal respiratory effort Effort and Inspection: able to speak in complete sentences; Negative for labored, grunting, stridor or audible wheezes Cardio regular rate and regular rhythm Extremity Extremity Narrative: Multiphasic doppler signals at the R DP and PT. R foot is warm and pink. RLE with 2+ edema R groin incision site with Prevena dressing maintaining good seal. R medial leg incision with dressing C/D/I. Skin Skin Narrative: R lateral foot wound with dry eschar overlying, no surrounding erythema/swelling/drainage. Neuro oriented x3, CN's II-XII intact bilaterally, moves all extremities and no focal motor deficits Speech: speech normal Psych mental status grossly normal, cooperative, affect normal, speech normal and activity/motor behavior normal Lab / Micro Data 12/31/23 05:10 12/30/23 05:10 Labs: Laboratory Results - last 24 hr 01/01/24 06:08: POC Glucose 140 H
[2024-01-01] MEDS: Juven (unflavored) Packet 1 PACKET PO (17:41)
[2024-01-01] MEDS: Rivaroxaban 20 MG Tablet PO (17:41)
[2024-01-01] MEDS: Calcium Carbonate 500 MG Tablet PO (18:22)
[2024-01-01] MEDS: Atorvastatin Calcium 40 MG Tablet PO (22:25)
[2024-01-02 05:22] LABS: Hematocrit 28.1 % (37-47); Hemoglobin 9.2 g/dL (12.0-15.0)
[2024-01-02 06:35] LABS: Bedside Glucose 150 mg/dL (74-106)
[2024-01-02] MEDS: traMADol 50 MG Tablet PO ×2 (08:49→17:49)
[2024-01-02] MEDS: Carvedilol 12.5 MG Tablet PO ×2 (08:50→17:46)
[2024-01-02] MEDS: Spironolactone 25 MG Tablet PO (08:51)
[2024-01-02] MEDS: Menthol/Lanolin/Calamine/Znox 113 GM Tube 1 APPLIC TOPICAL ×2 (08:51→19:56)
[2024-01-02] MEDS: Glimepiride 2 MG Tablet PO (08:51)
[2024-01-02] MEDS: Clopidogrel Bisulfate 75 MG Tablet PO (08:52)
[2024-01-02 08:59] VITALS: BP 159/50; PULSE 94
--- NOTE | 2024-01-02 09:02 | NURSING ---
REMOVED WOUND VAC FROM GROIN AND DRESSING FROM RT LOWER LEG PER ORDER. SMALL AMOUNT OF BLEEDING ON GROIN AND LEG AREA. APPLIED STRI STRIPS AND ABD TO GROIN AREA AND ABD TO RT LEG. SWELLING TO GROIN AND RT LEG/FOOT NON PITTING. NO S/S OF INFECTION. PT TOLERATED WELL. RN AWARE
[2024-01-02 11:00] VITALS: PULSE 95; RESP 18; O2SAT 95
[2024-01-02 13:24] VITALS: BP 120/45; PULSE 98; RESP 16; TEMP 36.3; O2SAT 95
--- NOTE | 2024-01-02 15:11 | WOUNDNOTE ---
wound photo: right lateral foot
[2024-01-02] MEDS: Rivaroxaban 20 MG Tablet PO (17:47)
[2024-01-02] MEDS: Atorvastatin Calcium 40 MG Tablet PO (19:56)
[2024-01-02] MEDS: Senna/Docusate Sodium 1 Tablet PO (19:56)
[2024-01-03 06:44] LABS: Bedside Glucose 151 mg/dL (74-106)
[2024-01-03] MEDS: Glimepiride 2 MG Tablet PO (08:26)
[2024-01-03] MEDS: traMADol 50 MG Tablet PO ×3 (08:27→23:15)
[2024-01-03] MEDS: Carvedilol 12.5 MG Tablet PO ×2 (08:27→16:31)
[2024-01-03] MEDS: Spironolactone 25 MG Tablet PO (08:28)
[2024-01-03] MEDS: Clopidogrel Bisulfate 75 MG Tablet PO (08:28)
[2024-01-03] MEDS: Menthol/Lanolin/Calamine/Znox 113 GM Tube 1 APPLIC TOPICAL ×2 (08:31→23:09)
--- NOTE | 2024-01-03 09:17 | MDS.RN ---
MDS pain interview complete.
--- NOTE | 2024-01-03 11:14 | NURSING ---
Patient continues to have bleeding from nose. Communication left for Dr. Matthews regarding Xarelto.
--- NOTE | 2024-01-03 11:15 | NURSING ---
Patient c/o pain 10/10 in right ankle, foot. Non-pitting edema noted to ankle and knee. Polar care applied to ankle. Dressing changed to right medial calf, very little drainage noted. Patient resting in recliner with legs elevated. Will continue to monitor.
--- NOTE | 2024-01-03 14:10 | NURSING ---
Call placed to Dr. De La Torre's office regarding nose bleed. Spoke with Hina, discussed with RICKI Burton. Suzan stated that as long nose bleeds are controlled, they would like patient to continue Xarelto.
[2024-01-03 15:36] VITALS: BP 134/58; PULSE 104; RESP 16; TEMP 36.8
--- NOTE | 2024-01-03 16:26 | CASEMGMT ---
BIMS () and PHQ9 () interviews completed on this date for MDS assessment. WILLI Elliott
[2024-01-03] MEDS: Rivaroxaban 20 MG Tablet PO (16:31)
[2024-01-03 17:11] VITALS: RESP 16; O2SAT 96
[2024-01-03] MEDS: Atorvastatin Calcium 40 MG Tablet PO (23:08)
[2024-01-04 06:38] LABS: Bedside Glucose 130 mg/dL (74-106)
[2024-01-04] MEDS: Carvedilol 12.5 MG Tablet PO ×2 (08:30→16:34)
[2024-01-04] MEDS: Glimepiride 2 MG Tablet PO (08:30)
[2024-01-04] MEDS: Spironolactone 25 MG Tablet PO (10:52)
[2024-01-04] MEDS: Clopidogrel Bisulfate 75 MG Tablet PO (10:53)
[2024-01-04] MEDS: Senna/Docusate Sodium 1 Tablet PO (10:53)
[2024-01-04 13:38] VITALS: BP 115/52; PULSE 98; RESP 14; TEMP 36.3; O2SAT 99
[2024-01-04] MEDS: Rivaroxaban 20 MG Tablet PO (16:34)
[2024-01-04] MEDS: Menthol/Lanolin/Calamine/Znox 113 GM Tube 1 APPLIC TOPICAL ×2 (16:36→21:27)
[2024-01-04] MEDS: traMADol 50 MG Tablet PO (17:50)
[2024-01-04] MEDS: Calcium Carbonate 500 MG Tablet PO (18:34)
[2024-01-04] MEDS: Atorvastatin Calcium 40 MG Tablet PO (21:27)
[2024-01-05 07:07] LABS: Bedside Glucose 139 mg/dL (74-106)
[2024-01-05] MEDS: Spironolactone 25 MG Tablet PO (09:12)
[2024-01-05] MEDS: Glimepiride 2 MG Tablet PO (09:12)
[2024-01-05] MEDS: Carvedilol 12.5 MG Tablet PO ×2 (09:12→16:21)
[2024-01-05] MEDS: Clopidogrel Bisulfate 75 MG Tablet PO (09:13)
[2024-01-05] MEDS: Menthol/Lanolin/Calamine/Znox 113 GM Tube 1 APPLIC TOPICAL ×2 (09:13→20:04)
[2024-01-05 09:18] VITALS: BP 133/53; PULSE 103; RESP 16; O2SAT 98
[2024-01-05 13:43] VITALS: BP 116/56; PULSE 99; RESP 18; TEMP 36.5; O2SAT 99
[2024-01-05] MEDS: traMADol 50 MG Tablet PO (14:41)
[2024-01-05] MEDS: Rivaroxaban 20 MG Tablet PO (16:21)
[2024-01-05] MEDS: Atorvastatin Calcium 40 MG Tablet PO (20:04)
[2024-01-05] MEDS: Calcium Carbonate 500 MG Tablet PO (20:04)
[2024-01-05 20:05] VITALS: PULSE 100; RESP 16; O2SAT 98
[2024-01-06 06:27] LABS: Bedside Glucose 136 mg/dL (74-106)
[2024-01-06 08:14] VITALS: BP 132/52; PULSE 99; RESP 16; TEMP 36.4; O2SAT 100
[2024-01-06] MEDS: Clopidogrel Bisulfate 75 MG Tablet PO (08:16)
[2024-01-06] MEDS: Spironolactone 25 MG Tablet PO (08:16)
[2024-01-06] MEDS: Carvedilol 12.5 MG Tablet PO ×2 (08:16→17:33)
[2024-01-06] MEDS: Glimepiride 2 MG Tablet PO (08:16)
[2024-01-06] MEDS: Lisinopril 5 MG Tablet PO (08:16)
[2024-01-06] MEDS: traMADol 50 MG Tablet PO ×2 (08:18→14:38)
[2024-01-06] MEDS: Menthol/Lanolin/Calamine/Znox 113 GM Tube 1 APPLIC TOPICAL ×2 (08:20→20:44)
[2024-01-06] MEDS: Tuberculin,Purif.prot.deriv. 50 TU/ML Vial 0.1 ML ID (09:54)
[2024-01-06 11:18] VITALS: RESP 16
[2024-01-06] MEDS: Acetaminophen 500 MG Tablet 1000 MG PO (12:58)
--- NOTE | 2024-01-06 13:10 | NURSING ---
pt c/o black stool, dr phelan notified, new order for occult stool. pt HGB trending down. on xarelto 20mg daily.
[2024-01-06 13:38] LABS: Absolute Lymphocyte Count 1.18 X10^3/uL (0.83-4.51); Absolute Neutrophil Count 6.8 X10^3/uL (2.0-7.7); Basophil# 0.02 X10^3/uL; Basophil% 0.2 % (0-1); Eosinophil# 0.07 X10^3/uL; Eosinophils% 0.8 % (0-5); Hematocrit 24.9 % (37-47); Hemoglobin 8.2 g/dL (12.0-15.0); Lymphocyte # 1.18 X10^3/ul (0.83-4.51); Lymphocyte % 13.1 % (19-41); Mean Corp Hgb Conc 32.9 g/dL (32-36); Mean Corpuscular Hgb 30.3 pg (27.0-32.0); Mean Corpuscular Volume 91.9 fL (81-99); Mean Platelet Vol. 9.1 fl (6.2-12.0); Monocyte# 0.85 X10^3/uL; Monocyte% 9.4 % (0-10); NRBC Flagged by Analyzer 0.3 % (0-5); Neutrophil # 6.83 X10^3/uL (2.7-7.7); Neutrophil % 75.6 % (47-70); Platelet Count 284 K/mm3 (150-450); RBC Distribution Width CV 15.5 % (11.6-14.6); RBC Distribution Width SD 50.3 fl (35.1-43.9); Red Blood Count 2.71 M/mm3 (4.2-5.4)
[2024-01-06 14:03] LABS: Anion Gap 5 (5-15); BUN 23 mg/dL (7-18); BUN/Creat Ratio 24.7 RATIO (10-20); Calcium,Total 9.1 mg/dL (8.5-10.1); Chloride 101 mmol/L (98-107); Creatinine, Serum 0.93 mg/dL (0.55-1.02); EST Glomerular Filtration Rate 62 mL/min (>60); Est Glom Filt Rate - Afr Amer 75 mL/min (>60); Estimated Creatinine Clearance 44.85 ml/min; Glucose 136 mg/dL (74-106); Sodium Level 131 mmol/L (136-145)
--- NOTE | 2024-01-06 14:47 | NURSING ---
Dr Matthews notified of HGB 8, + occult stool, new orders to notify vascular regarding xarelto & Dr Giron for consult. RICKI Burton returned call and ok with holding xarelto for now. Dr Giron notified via text
[2024-01-06 14:53] VITALS: BP 100/42; PULSE 88; RESP 18; TEMP 36.2; O2SAT 100
--- NOTE | 2024-01-06 15:15 | NURSING ---
stroke alert called d/t pt c/o severe migraine RT tempal 04/23 & nausea. ultram and tylenol ineffective. pt was on xarelto and normally does not take a blood thinner. denies vision issues, no other stroke s/s noted. BP lower 100/42, HR 88. sat 100% on room air. blood sugar 113. pt off unit in ER.
[2024-01-06 15:21] LABS: Bedside Glucose 116 mg/dL (74-106)
--- NOTE | 2024-01-06 16:03 | NURSING ---
attempted to call son, no answer, left voicemail
[2024-01-06] MEDS: Glucerna Shake 120 ML LIQUID PO (17:30)
[2024-01-06] MEDS: Calcium Carbonate 500 MG Tablet PO (17:33)
[2024-01-06 17:35] VITALS: BP 106/46; PULSE 86
--- NOTE | 2024-01-06 18:40 | NURSING ---
Addendum entered by Gayla Marroquin 01/06/24 18:51: pt was in [place] Dr Giron stated he would be back Original Note: dr giron here to see pt
--- NOTE | 2024-01-06 19:55 | EX.PCM.CON.G ---
HPI Consult Data Date of Consult: 01/06/24 HPI Narrative Reason for Consultation: GI bleed HPI Narrative: ESTEFANIA COWAN, smooth a 73 F was sent to the emergency department complaint of a headache that started around 1 PM today. She complained of headache came on suddenly. Patient states pain is on the right side of her head. Patient currently admitted to the transitional care unit. Patient had right iliac stent placement on December 25. She has a history of peripheral artery disease. Patient on Xarelto and her last dose was last evening. Patient denies photophobia. She does complain of a little bit of nausea. She is never had a headache like this before. Patient brought down as a stroke team for concern for possible hemorrhagic stroke. She denies any difficulty speech or vision. She denies difficulty with weakness to the extremities. She was seen by neurology and emergency room physician she was deemed not to be a thrombolytic candidate. This was because it was determined that she was not not having an embolic type stroke. Patient was evaluated by stroke neurologist who was in agreement. Patient was also not a candidate for lumbar puncture. Patient had a CT scan of the brain without contrast that did not show any hemorrhage. She also had CTA of head and neck that showed some chronic stenosis of both carotid arteries. Less than 70%. CBC with differential count of 10.4 with hemoglobin 7.9 and platelet count of 311. Chemistries unremarkable. Patient did receive Reglan 10 mg IV as well as a liter of fluid and 25 mg of Benadryl IV. Headache did improve down to an 8 out of 10. She received 1 dose of morphine. I was asked to see her due to persistent melanotic stools. Along with her hemoglobin dropping down to 7.9 from 9.3. [facility] Medical History (Updated 01/06/24 @ 20:[address] Dunlap Friend, DO) Post-menopausal Anxiety Discoloration of skin Arthritis Uses wheelchair Walker as ambulation aid Anemia Back pain Dietary restriction History of diverticulitis Heartburn Leg cramps History of pain when walking History of edema Wears glasses Wears dentures Diabetes High cholesterol Hypertension Former smoker History of echocardiogram History of stress test Cardiology follow-up encounter History of CHF (congestive heart failure) Home Medications ?Medication ?Instructions ?Recorded ?Last Taken ?Type carvedilol 12.5 mg tablet 12.5 mg PO BID HEART 01/22/23 12/26/23 History clopidogrel 75 mg tablet 75 mg PO DAILY BLOOD THINNER 01/22/23 12/26/23 History lisinopril 5 mg tablet 5 mg PO DAILY BP 01/22/23 12/26/23 History rosuvastatin 20 mg tablet 20 mg PO QHS CHOLESTEROL 01/22/23 12/25/23 History spironolactone 25 mg tablet 25 mg PO DAILY WATER PILL 01/22/23 12/25/23 History glimepiride 2 mg tablet 2 mg PO DAILY DIABETES 01/30/23 12/25/23 History prochlorperazine maleate 5 mg 5 mg PO TID PRN nausea and 12/12/23 Unknown Rx tablet (Compazine) vomiting #14 tabs tramadol 50 mg tablet 50 mg PO Q6H PRN PRN pain 12/20/23 12/25/23 History rivaroxaban 20 mg tablet (Xarelto) 20 mg PO DAILY clot prevention #30 12/27/23 Unknown Rx tabs Allergy/AdvReac Type Severity Reaction Status Date / Time cilostazol (From Pletal) AdvReac Intermediate irregular Verified 12/26/23 05:59 heart beats/nose bleeds Surgical History Hx of colonoscopy Hx of extremity bypass graft History of angioplasty History of carotid angioplasty History of cholecystectomy (~2010) History of hand surgery History of carpal tunnel surgery History of hysterectomy (~1999) Social History (Updated 12/29/23 @ 20:[address] Jamel Matthews MD) household members: none Smoking Status: Former smoker alcohol intake: never substance use type: does not use ROS Constitutional Constitutional: Reports weakness; Denies chills, fever(s) or weight gain ENT HEENT: Reports epistaxis; Denies headache(s), nasal congestion or nasal discharge Cardiovascular Cardiovascular: Reports edema; Denies chest pain or palpitations Respiratory/Chest Respiratory/Chest: Denies cough, excessive phlegm production or shortness of breath with exertion Gastrointestinal Gastrointestinal: Reports abdominal pain and other Details: Right groin pain. ; Denies nausea or vomiting Genitourinary Genitourinary: Denies dysuria Musculoskeletal Musculoskeletal: Denies joint pain or joint swelling Integumentary Integumentary: Denies rash or wounds Neurologic Neurologic: Denies focal weakness, numbness or tingling Psychiatric Psychiatric: Denies anxiety, auditory hallucinations, depression, homicidal ideation or suicidal ideation Physical Exam Const alert, oriented x3 and no apparent distress General Appearance: cooperative HEENT normocephalic, head/scalp atraumatic, hearing grossly normal bilaterally, external ears normal and external nose normal Eyes PERRL and EOMs intact bilaterally General Eye: normal appearance of both eyes Neck General: normal visual inspection and trachea midline Resp normal respiratory effort Effort and Inspection: able to speak in complete sentences; Negative for labored, grunting, stridor or audible wheezes Cardio regular rate and regular rhythm Extremity Extremity Narrative: Multiphasic doppler signals at the R DP and PT. R foot is warm and pink. RLE with 2+ edema R groin incision site with Prevena dressing maintaining good seal. R medial leg incision with dressing C/D/I. Skin Skin Narrative: R lateral foot wound with dry eschar overlying, no surrounding erythema/swelling/drainage. Neuro oriented x3, CN's II-XII intact bilaterally, moves all extremities and no focal motor deficits Speech: speech normal Psych mental status grossly normal, cooperative, affect normal, speech normal and activity/motor behavior normal Lab / Micro Data 01/06/24 12:29 01/06/24 12:29 Labs: Laboratory Results - last 24 hr 01/06/24 06:08: POC Glucose 136 H 01/06/24 12:29: WBC 9.0, RBC 2.71 L, Hgb 8.2 L, Hct 24.9 L, MCV 91.9, MCH 30.3, MCHC 32.9, RDW Std Deviation 50.3 H, RDW Coeff of Pricila 15.5 H, Plt Count 284, MPV 9.1, Immature Gran % (Auto) 0.900, Neut % (Auto) 75.6 H, Lymph % (Auto) 13.1 L, Armstrong % (Auto) 9.4, Eos % (Auto) 0.8, Baso % (Auto) 0.2, Absolute Neuts (auto) 6.8, Absolute Lymphs (auto) 1.18, Nucleated RBC % 0.3, Sodium 131 L, Potassium 4.0, Chloride 101, Carbon Dioxide 25.0, Anion Gap 5, BUN 23 H, Creatinine 0.93, Estim Creat Clear Calc 44.85, Est GFR (MDRD) Af Amer 75, Est GFR (MDRD) Non-Af 62, BUN/Creatinine Ratio 24.7 H, Glucose 136 H, Calcium 9.1 01/06/24 15:03: POC Glucose 116 H Micro: Microbiology 01/06/24 13:10 Stool Stool Occult Blood (DAVID) - Final Occult Blood Positive Assessment & Plan Assessment/Plan (1) Blood in stool: (2) Abdominal pain: (3) Anemia: PLAN: Plan 73-year-old with history of diabetes, hyperlipidemia, peripheral artery disease status post intervention and on Xarelto therapy who developed melanotic stool. Differential diagnosis does include peptic ulcer disease in the stomach or the small bowel. Also patient is high risk for angiodysplastic lesions secondary to PAD. She should undergo an upper endoscopy evaluate upper GI tract. She was explained alternatives, risk, benefits including not withstanding bleeding, infection, sepsis, perforation, need for emergent urgent . She will have an ASA of 3. Charges/Coding Visit Charges Inpatient E&M: 61975 SNF Init L2
[2024-01-06] MEDS: Atorvastatin Calcium 40 MG Tablet PO (20:42)
[2024-01-07 07:11] LABS: Bedside Glucose 135 mg/dL (74-106)
[2024-01-07 08:21] VITALS: BP 99/55; PULSE 108; RESP 16; TEMP 36.4; O2SAT 99
--- NOTE | 2024-01-07 08:27 | NURSING ---
pt NPO today for EGD at this time
[2024-01-07] MEDS: Menthol/Lanolin/Calamine/Znox 113 GM Tube 1 APPLIC TOPICAL ×2 (10:12→20:50)
[2024-01-07 10:19] VITALS: BP 120/52; PULSE 102; RESP 16; TEMP 36.4; O2SAT 99; BMI 26.7
--- NOTE | 2024-01-07 10:48 | NURSING ---
pt refusing meds before EGD d/t it causing her to get sick to stomach. held until after procedure
[2024-01-07 11:28] VITALS: PULSE 112; RESP 16; O2SAT 97
[2024-01-07 12:22] VITALS: BMI 26.7
--- NOTE | 2024-01-07 13:46 | MDS.RN ---
Information for the MDS was obtained from review of the clinical record, interview of resident, staff, and direct observation of resident?s care.
--- NOTE | 2024-01-07 14:45 | NURSING ---
pt off unit at this time via bed for EGD
--- NOTE | 2024-01-07 17:21 | NURSING ---
pt returned from endo, new orders for carafate, omeprazole, & metoclopramide
--- NOTE | 2024-01-07 17:24 | NURSING ---
son updated on pt returning from endo. dr Giron notified regarding xarelto hold order, ok to restart tomorrow.
[2024-01-07] MEDS: Spironolactone 25 MG Tablet PO (17:39)
[2024-01-07] MEDS: Lisinopril 5 MG Tablet PO (17:39)
[2024-01-07] MEDS: Clopidogrel Bisulfate 75 MG Tablet PO (17:39)
[2024-01-07] MEDS: Glimepiride 2 MG Tablet PO (17:39)
[2024-01-07] MEDS: Glucerna Shake 120 ML LIQUID PO (17:43)
[2024-01-07] MEDS: Carvedilol 12.5 MG Tablet PO (17:44)
[2024-01-07] MEDS: traMADol 50 MG Tablet PO (17:46)
--- NOTE | 2024-01-07 19:22 | NURSING ---
pt c/o palpitations, HR 109-111 tachy but regular. denies any other symptoms. reminded pt that she just took her BP/heart meds this evening since she was NPO this AM & did not want meds on empty stomach. pt resting in bed, and instructed to call nurse if she develops any other symptoms or it does not get better. pt verbalized understanding. [facility] filled with ice/water per her request to RLE.
[2024-01-07] MEDS: Pantoprazole Sodium 40 MG Tablet PO (20:46)
[2024-01-07] MEDS: Atorvastatin Calcium 40 MG Tablet PO (20:46)
[2024-01-07] MEDS: Metoclopramide 5 MG TABLET PO (20:46)
[2024-01-08] MEDS: Sucralfate 1 GM Tablet PO ×3 (06:26→16:18)
[2024-01-08] MEDS: Metoclopramide 5 MG TABLET PO ×4 (06:26→20:40)
[2024-01-08 06:48] LABS: Bedside Glucose 107 mg/dL (74-106)
[2024-01-08] MEDS: Carvedilol 12.5 MG Tablet PO (08:57)
[2024-01-08] MEDS: Pantoprazole Sodium 40 MG Tablet PO ×2 (08:57→20:41)
[2024-01-08] MEDS: Menthol/Lanolin/Calamine/Znox 113 GM Tube 1 APPLIC TOPICAL ×2 (08:59→20:41)
[2024-01-08 09:00] VITALS: BP 123/49; PULSE 100; RESP 16; TEMP 36.6; O2SAT 98
[2024-01-08] MEDS: Glucerna Shake 120 ML LIQUID PO ×3 (09:02→17:29)
[2024-01-08] MEDS: Glimepiride 2 MG Tablet PO (10:10)
[2024-01-08] MEDS: Clopidogrel Bisulfate 75 MG Tablet PO (10:10)
[2024-01-08] MEDS: Spironolactone 25 MG Tablet PO (10:10)
[2024-01-08] MEDS: Lisinopril 5 MG Tablet PO (10:10)
[2024-01-08] MEDS: Rivaroxaban 20 MG Tablet PO (17:23)
[2024-01-08] MEDS: Carvedilol 6.25 MG Tablet PO (17:41)
[2024-01-08 17:42] VITALS: BP 108/40; PULSE 98
[2024-01-08] MEDS: Atorvastatin Calcium 40 MG Tablet PO (20:41)
[2024-01-08 20:48] VITALS: O2SAT 97
[2024-01-09] MEDS: Metoclopramide 5 MG TABLET PO ×4 (06:31→21:51)
[2024-01-09] MEDS: Sucralfate 1 GM Tablet PO ×3 (06:31→16:54)
[2024-01-09 06:49] LABS: Bedside Glucose 134 mg/dL (74-106)
--- NOTE | 2024-01-09 07:59 | PCM.PN.SRG ---
Subjective Subjective Patient was seen resting comfortably in bedside chair. On 01/05, she developed dark stools which were hemeoccult positive. Due to this her Xarelto was held starting 01/05 in anticipation of GI evaluation. Dr. Giron performed EGD on 01/06 in which he identified and treated an oozing duodenal ulcer. She reports that the dark stools have resolved and she is overall feeling much better. She states that her RLE pain is significantly improved. She does still have RLE edema, she is elevating. No other complaints today. Objective Data Objective Data Vital Signs: Vital Signs Temp Pulse Resp BP Pulse Ox O2 Del Method O2 Flow Rate 98 F 98 16 108/40 L 97 Room Air 96 01/08/24 09:00 01/08/24 17:42 01/08/24 09:00 01/08/24 17:42 01/08/24 20:48 01/08/24 20:48 01/03/24 15:36 Oxygen Flow Rate (L/min) 96 Oxygen Delivery Method Room Air Weight: 141 lb 8 oz Body Mass Index (BMI) 26.7 Intake & Output: Intake and Output for Last 24 Hours 01/07/24 01/08/24 01/09/24 23:59 23:59 23:59 Intake Total 585 / 585 Balance 585 / 585 Lab / Micro Data 01/06/24 12:29 01/06/24 12:29 Labs: Laboratory Results - last 24 hr 01/09/24 06:27: POC Glucose 134 H Micro: Microbiology 01/06/24 13:10 Stool Stool Occult Blood (DAVID) - Final Occult Blood Positive 01/03/24 06:07 Nasal Secretion SARS-CoV-2 Antigen (Rapid) - Final Physical Exam Const alert, oriented x3 and no apparent distress General Appearance: cooperative HEENT normocephalic, head/scalp atraumatic, hearing grossly normal bilaterally, external ears normal and external nose normal Eyes PERRL and EOMs intact bilaterally General Eye: normal appearance of both eyes Neck General: normal visual inspection and trachea midline Resp normal respiratory effort Effort and Inspection: able to speak in complete sentences; Negative for labored, grunting, stridor or audible wheezes Cardio regular rate and regular rhythm Extremity Extremity Narrative: Multiphasic doppler signals at the R DP and PT. R foot is warm and pink. RLE with 2+ edema RLE incision sites are all well-healing. Skin Skin Narrative: R lateral foot wound with dry eschar overlying, no surrounding erythema/swelling/drainage. 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 Giron treated bleeding duodenal ulcer, black stools have resolved. OK to restart Xarelto per Dr. Giron. Will continue Xarelto + Plavix as tolerated for now. Outpatient follow-up in our office is scheduled on 02/04/24. Will plan to continue current anticoagulant and antiplatelet regimen at least until this office visit. Initial postoperative arterial duplex and LAST have been ordered.
[2024-01-09] MEDS: Lisinopril 5 MG Tablet PO (08:13)
[2024-01-09] MEDS: Pantoprazole Sodium 40 MG Tablet PO ×2 (08:13→21:50)
[2024-01-09] MEDS: Carvedilol 12.5 MG Tablet PO ×2 (08:13→18:02)
[2024-01-09] MEDS: Glucerna Shake 120 ML LIQUID PO ×2 (08:13→12:14)
[2024-01-09] MEDS: Glimepiride 2 MG Tablet PO (08:14)
[2024-01-09] MEDS: Spironolactone 25 MG Tablet PO (08:14)
[2024-01-09] MEDS: Clopidogrel Bisulfate 75 MG Tablet PO (08:14)
[2024-01-09] MEDS: Menthol/Lanolin/Calamine/Znox 113 GM Tube 1 APPLIC TOPICAL ×2 (08:17→21:51)
[2024-01-09 11:09] VITALS: BP 130/48; PULSE 104; RESP 16; TEMP 36.7; O2SAT 100
[2024-01-09] MEDS: traMADol 50 MG Tablet PO (13:01)
--- NOTE | 2024-01-09 16:17 | CASEMGMT ---
Addendum entered by Jesus Alberto Medina 01/09/24 16:46: SW completed Notice of Medicare Non-Coverage for current [facility] facility services with end date: 01/11/2024; anticipates discharge on 01/12/2024. Patient provided verbal understanding of [facility]. Patient provided signature and a copy was left at bedside. Original Note: Social Work SW received notification from and Therapy that the patient is requesting to meet with SW. SW met with patient at bedside per request. Patient informed SW that she would like to discharge on 01/12/2024. SW inquired about care plan. Patient informed SW that her children are available to assist with discharge on Saturday. SW inquired about home health care services. Patient informed SW that she is agreeable to home health care services. Patient informed SW that she is agreeable to home health care with PT/OT/SN. SW discussed patient request with therapist, Terri. Terri informed SW that the patient is progressing with therapy; can transition home with home health. Therapy does not have any recommendation for DME at this time. SW provided patient with printed home health care list within geographic area, medical need, and insurance network via [employer] Guide. Discharge: 01/12/2024 Home with Home Health Care services PT/OT/SN ANGELA Hopson
[2024-01-09] MEDS: Rivaroxaban 20 MG Tablet PO (18:02)
--- NOTE | 2024-01-09 19:16 | DS.PCM_ITS ---
Providers Date of Admission: 12/29/23 Primary Care Physician: Dr. Ge Montero MD Consultations 12/29/23 20:32 Consult: Vascular Surgery Routine Consulting Provider: Suzan Fernandez Reason for Consult: s/p RLE revascularization surgery. 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 De La Torre, complicated by acute blood loss anemia, hypotension, admitted to TCU with debility, here for rehabilitation, strengthening, prior to discharge home alone. * Debility - PT/OT. * Pain - Tylenol 1000mg q6 prn pain (1-3), Tramadol 50mg q6 prn pain (4-10). * Bowel - senna/colace 1 tablet bid, Magnesium citrate 300ml daily prn. * Adult immunization - Administer pneumonia vaccine, covid vaccine, flu vaccine as appropriate. * DVT prophylaxis - on Xarelto. * Hyperlipidemia - Atorvastatin 40mg qhs. * Hypertension - Coreg 12.5mg bidcm, Lisinopril 5mg daily, Aldactone 25mg daily. * PVD s/p RLE revascularization - Plavix 75mg daily, Xarelto 20mg daily thru 01/28/2024. Consult Dr. De La Torre/Suzan Fernandez to follow. * Diabetes Mellitus II - Glimepiride 2mg po qam. * Skin irritation - Calmoseptine topical bid. * Nausea - Compazine 5mg tid prn. * Swelling right lower extremity - Doppler ultrasound right lower extremity. * Epistaxis - Resident told me she had quarter size blood clot from nose, order [place] nasal spray, we discussed importance of blood thinners after her surgery. Medications at Discharge Home Medications carvedilol 12.5 mg tablet 12.5 mg PO BID HEART 01/22/23 clopidogrel 75 mg tablet 75 mg PO DAILY BLOOD THINNER 01/22/23 lisinopril 5 mg tablet 5 mg PO DAILY BP 01/22/23 rosuvastatin 20 mg tablet 20 mg PO QHS CHOLESTEROL 01/22/23 spironolactone 25 mg tablet 25 mg PO DAILY WATER PILL 01/22/23 glimepiride 2 mg tablet 2 mg PO DAILY DIABETES 01/30/23 prochlorperazine maleate 5 mg tablet (Compazine) 5 mg PO TID PRN nausea and vomiting #14 tabs 12/12/23 acetaminophen 500 mg tablet 1,000 mg (2 x 500 mg) PO Q6H PRN PRN Pain Score 1-3 #0 tabs 01/09/24 calcium carbonate 500 mg (2.5 x 200 mg calcium (500 mg)) PO Q4H PRN PRN Indigestion #0 tabs 01/09/24 metoclopramide HCl 5 mg tablet 5 mg PO ACHS 16 days #64 tabs 01/09/24 pantoprazole 40 mg tablet,delayed release 40 mg PO BID 30 days #60 tabs 01/09/24 rivaroxaban 20 mg tablet (Xarelto) 20 mg PO DINNER 30 days #30 tabs 01/09/24 sucralfate 1 gram tablet 1 g PO TIDAC 9 days #27 tabs 01/09/24 tramadol 50 mg tablet 50 mg PO Q6H PRN PRN Pain Score 4-10 Or Pre Pt/Ot 7 days #28 tabs 01/09/24 Hospital Course Operations - (See below.) Procedures EGD Summary of Care Provided Minutes Spent on Discharge: 35 Hospital Course: 73 year old female with below past medical history underwent revascularization surgery right lower extremity 12/26/[address] De La Torre, complicated by acute blood loss anemia, hypotension, admitted to TCU with debility, here for rehabilitation, strengthening, prior to discharge home alone. 01/06/2024 [facility] ED stroke ruled out. 01/07/2024 Dr. Giron EGD: Impressions : - Normal esophagus. - Normal stomach. - Oozing duodenal ulcer with a visible vessel. Treated with a heater probe. Biopsied. Recommendations : - [facility]. - Resume previous diet. - Continue present medications. - Await pathology results. - Repeat upper endoscopy in 3 months for surveillance. - Omeprazole 40 mg twice daily x 12 weeks - Metoclopramide 5 mg p.o. every 6 hours scheduled x 3 weeks - Carafate 1 g p.o. 3 times daily x 2 weeks Ok to restart Xarelto along with Plavix. Discharge home alone 01/12/2024, [facility] PT/OT/SN. Physical Exam Const alert General Appearance: cooperative HEENT normocephalic Eyes PERRL and EOMs intact bilaterally Neck supple, no JVD and no carotid bruits Resp normal respiratory effort, normal air movement and clear to auscultation bilaterally Cardio regular rate and regular rhythm GI normal to inspection, nondistended, normoactive bowel sounds, non-tender and non-distended Extremity normal capillary refill General Extremity: Negative for edema Skin no rashes or lesions noted General Skin Exam: no breakdown Psych affect normal Appearance: appropriate Weight / BMI Weight Weight: 64.183 kg Body Mass Index (BMI) 26.7 ABG / Lab / Microbiology Data 01/06/24 12:29 01/06/24 12:29 Laboratory: Laboratory Results - last 24 hr 01/09/24 06:27: POC Glucose 134 H Microbiology: Microbiology 01/06/24 13:10 Stool Stool Occult Blood (DAVID) - Final Occult Blood Positive 01/03/24 06:07 Nasal Secretion SARS-CoV-2 Antigen (Rapid) - Final D/C Instructions Discharge Diet: No restrictions Discharge Activity: Return to Normal Activity, May Shower and Use Walker Weight Bearing Status: Weight bearing as tolerated Call your doctor if you observe: Fever of 101 or Higher, Inability to urinate, Inability to have a bowel movement, Shortness of breath, Dizziness, Fainting spells, Swelling in the ankles, Chest pain and Uncontrolled pain Additional Instructions: Discharge home alone 01/12/2024, [facility] PT/OT/SN. Please Follow Up With: Bennett De La Torre MD When: 02/04/2024. Meaningful Use Info Meaningful Use Meaningful Use Diagnoses (Choose all that apply): None applicable Ischemic Stroke Statin Dosing Therapy Reference: STATIN DOSE THERAPY REFERENCE: * Patients > 75 years receive moderate or high dose statin therapy. * Patients 75 years or YOUNGER should receive HIGH intensity statin dose unless contraindicated. You will be required to document reason for non-treatment if statin daily dose does not meet guidelines. HIGH DOSE STATIN THERAPY DAILY Atorvastatin > than or = to 40 mg Rosuvastatin > than or = to 20 mg Amlodipine + Atorvastatin > than or = to 2.5/40 mg Ezetimibe + Simvastatin 10/80 mg Simvastatin 80mg Discharge Plan Admission Admit Date/Time: 12/29/23 14:35 Primary Reason for Your Visit: Debility. Attending Provider: Jamel Matthews Chi Primary Care Provider: Ge Montero Consulting Providers: Suzan Fernandez Instructions Additional Instructions / Restrictions: Discharge home alone 01/12/2024, [facility] PT/OT/SN. Discharge Orders/Prescriptions Prescriptions: New acetaminophen 500 mg Tablet 1,000 mg PO Q6H PRN PRN (Reason: Pain Score 1-3) Qty: 0 0RF calcium carbonate 200 mg calcium (500 mg) Tablet,Chewable 500 mg PO Q4H PRN PRN (Reason: Indigestion) Qty: 0 0RF sucralfate 1 gram Tablet 1 g PO TIDAC 9 Days Qty: 27 0RF tramadol 50 mg Tablet 50 mg PO Q6H PRN PRN (Reason: Pain Score 4-10 Or Pre Pt/Ot) 7 Days Qty: 28 0RF metoclopramide HCl 5 mg Tablet 5 mg PO ACHS 16 Days Qty: 64 0RF pantoprazole 40 mg Tablet,Delayed Release (Dr/Ec) 40 mg PO BID 30 Days Qty: 60 0RF Xarelto 20 mg Tablet 20 mg PO DINNER 30 Days Qty: 30 0RF Continued spironolactone 25 mg tablet 25 mg PO DAILY clopidogrel 75 mg tablet 75 mg PO DAILY lisinopril 5 mg tablet 5 mg PO DAILY carvedilol 12.5 mg tablet 12.5 mg PO BID Rx Instructions: must administer with a meal/food rosuvastatin 20 mg tablet 20 mg PO QHS glimepiride 2 mg tablet 2 mg PO DAILY Patient Comments: TAKE 1 TABLET BY MOUTH ONCE DAILY prochlorperazine maleate [Compazine] 5 mg tablet 5 mg PO TID PRN (Reason: nausea and vomiting) Qty: 14 0RF Discontinued tramadol 50 mg tablet 50 mg PO Q6H PRN PRN (Reason: pain) Xarelto 20 mg tablet 20 mg PO DAILY Qty: 30 1RF Rx Instructions: must administer with evening meal Referrals / Follow Up: Germán Giron DO [Med Staff - Active Staff] - (Repeat EGD in 3 months from 01/07/24) Ge Montero MD [Primary Care Provider] - Disposition Disposition (needs filled in before D/C Order can be placed): Home Health Service
[2024-01-09] MEDS: Atorvastatin Calcium 40 MG Tablet PO (21:50)
[2024-01-09 22:00] VITALS: PULSE 100; RESP 16; O2SAT 99
[2024-01-10] MEDS: Sucralfate 1 GM Tablet PO ×2 (06:02→21:15)
[2024-01-10] MEDS: Metoclopramide 5 MG TABLET PO ×2 (06:02→21:15)
[2024-01-10 06:49] LABS: Bedside Glucose 146 mg/dL (74-106)
[2024-01-10] MEDS: Spironolactone 25 MG Tablet PO (07:44)
[2024-01-10] MEDS: Glimepiride 2 MG Tablet PO (07:44)
[2024-01-10] MEDS: Glucerna Shake 120 ML LIQUID PO ×2 (07:44→17:54)
[2024-01-10] MEDS: Clopidogrel Bisulfate 75 MG Tablet PO (07:44)
[2024-01-10] MEDS: Carvedilol 12.5 MG Tablet PO ×2 (07:44→17:54)
[2024-01-10] MEDS: Lisinopril 5 MG Tablet PO (07:45)
[2024-01-10] MEDS: Menthol/Lanolin/Calamine/Znox 113 GM Tube 1 APPLIC TOPICAL ×2 (07:45→19:25)
[2024-01-10] MEDS: Pantoprazole Sodium 40 MG Tablet PO ×2 (07:45→21:15)
[2024-01-10] MEDS: Senna/Docusate Sodium 1 Tablet PO (07:45)
[2024-01-10 07:53] LABS: Hematocrit 23.1 % (37-47); Hemoglobin 7.2 g/dL (12.0-15.0)
--- NOTE | 2024-01-10 10:23 | NURSING ---
Updated Dr. Giron of black stools and hgb 7.2, order for blood transfusion. Order from Dr. Giron to make patient NPO, he will plan to do scope today.
[2024-01-10 10:41] VITALS: BP 121/51; PULSE 104; RESP 18; TEMP 36.4; O2SAT 99
--- NOTE | 2024-01-10 14:34 | CASEMGMT ---
Social Work Patient's discharge is being held due to current bleed. Patient is scheduled for EGD. SW will continue to follow to assist with discharge planning. ANGELA Hopson
--- NOTE | 2024-01-10 17:50 | NURSING ---
Pt. left floor at 1430 fo EGD and returned at 1745
[2024-01-10 21:00] VITALS: BP 114/45; PULSE 95
[2024-01-10] MEDS: Atorvastatin Calcium 40 MG Tablet PO (21:15)
[2024-01-10] MEDS: 0.9% Saline Lock 10 ML Syringe IV (21:22)
[2024-01-11 06:45] LABS: Bedside Glucose 153 mg/dL (74-106)
[2024-01-11] MEDS: Sucralfate 1 GM Tablet PO ×4 (06:57→23:12)
[2024-01-11] MEDS: Metoclopramide 5 MG TABLET PO ×4 (06:58→23:13)
[2024-01-11] MEDS: Glucerna Shake 120 ML LIQUID PO (08:02)
[2024-01-11] MEDS: Glimepiride 2 MG Tablet PO (08:02)
[2024-01-11] MEDS: Pantoprazole Sodium 40 MG Tablet PO ×2 (08:02→23:13)
[2024-01-11] MEDS: Lisinopril 5 MG Tablet PO (08:02)
[2024-01-11] MEDS: Clopidogrel Bisulfate 75 MG Tablet PO (08:02)
[2024-01-11] MEDS: Spironolactone 25 MG Tablet PO (08:02)
[2024-01-11] MEDS: Carvedilol 12.5 MG Tablet PO ×2 (08:02→16:13)
[2024-01-11] MEDS: Menthol/Lanolin/Calamine/Znox 113 GM Tube 1 APPLIC TOPICAL (08:03)
--- NOTE | 2024-01-11 09:29 | NURSING ---
Addendum entered by Les Lopez 01/11/24 14:38: Pt. returned to unit at 1330 Original Note: Pt left unit at 0820 to receive blood on PCU
[2024-01-11 10:24] VITALS: BP 118/46; PULSE 98; RESP 18; TEMP 36.2; O2SAT 99
[2024-01-11] MEDS: Atorvastatin Calcium 40 MG Tablet PO (23:13)
[2024-01-12 06:17] LABS: Bedside Glucose 106 mg/dL (74-106)
[2024-01-12] MEDS: Sucralfate 1 GM Tablet PO ×4 (06:43→22:50)
[2024-01-12] MEDS: Metoclopramide 5 MG TABLET PO ×4 (06:43→22:50)
[2024-01-12] MEDS: Carvedilol 12.5 MG Tablet PO ×2 (08:49→16:35)
[2024-01-12] MEDS: Pantoprazole Sodium 40 MG Tablet PO ×2 (08:49→22:50)
[2024-01-12] MEDS: Spironolactone 25 MG Tablet PO (08:49)
[2024-01-12] MEDS: Glimepiride 2 MG Tablet PO (08:49)
[2024-01-12] MEDS: Lisinopril 5 MG Tablet PO (08:50)
[2024-01-12] MEDS: Clopidogrel Bisulfate 75 MG Tablet PO (08:50)
[2024-01-12] MEDS: Menthol/Lanolin/Calamine/Znox 113 GM Tube 1 APPLIC TOPICAL ×2 (08:51→22:51)
[2024-01-12] MEDS: traMADol 50 MG Tablet PO (08:54)
[2024-01-12 12:54] VITALS: BP 136/53; PULSE 100; RESP 16; TEMP 36.3; O2SAT 99
[2024-01-12 13:04] LABS: Hematocrit 30.9 % (37-47); Hemoglobin 10.2 g/dL (12.0-15.0)
[2024-01-12] MEDS: Atorvastatin Calcium 40 MG Tablet PO (22:50)
[2024-01-12] MEDS: Petrolatum 33% Tube 1 APPLIC TOPICAL (22:52)
[2024-01-13 05:30] LABS: Absolute Lymphocyte Count 0.91 X10^3/uL (0.83-4.51); Absolute Neutrophil Count 4.9 X10^3/uL (2.0-7.7); Basophil# 0.02 X10^3/uL; Basophil% 0.3 % (0-1); Eosinophil# 0.16 X10^3/uL; Eosinophils% 2.4 % (0-5); Hematocrit 29.3 % (37-47); Hemoglobin 9.4 g/dL (12.0-15.0); Lymphocyte # 0.91 X10^3/ul (0.83-4.51); Lymphocyte % 13.4 % (19-41); Mean Corp Hgb Conc 32.1 g/dL (32-36); Mean Corpuscular Hgb 30.1 pg (27.0-32.0); Mean Corpuscular Volume 93.9 fL (81-99); Mean Platelet Vol. 8.9 fl (6.2-12.0); Monocyte# 0.69 X10^3/uL; Monocyte% 10.2 % (0-10); NRBC Flagged by Analyzer 0 % (0-5); Neutrophil # 4.94 X10^3/uL (2.7-7.7); Neutrophil % 72.8 % (47-70); Platelet Count 198 K/mm3 (150-450); RBC Distribution Width CV 16.4 % (11.6-14.6); RBC Distribution Width SD 54.4 fl (35.1-43.9); Red Blood Count 3.12 M/mm3 (4.2-5.4); White Blood Count 6.8 K/mm3 (4.4-11.0)
[2024-01-13 05:51] LABS: Anion Gap 8 (5-15); BUN 13 mg/dL (7-18); BUN/Creat Ratio 17.2 RATIO (10-20); Calcium,Total 8.4 mg/dL (8.5-10.1); Chloride 106 mmol/L (98-107); Creatinine, Serum 0.76 mg/dL (0.55-1.02); EST Glomerular Filtration Rate 79 mL/min (>60); Est Glom Filt Rate - Afr Amer 96 mL/min (>60); Estimated Creatinine Clearance 52.14 ml/min; Glucose 100 mg/dL (74-106); Potassium 3.9 mmol/L (3.5-5.1); Sodium Level 135 mmol/L (136-145)
[2024-01-13] MEDS: Sucralfate 1 GM Tablet PO ×4 (06:01→20:19)
[2024-01-13] MEDS: Metoclopramide 5 MG TABLET PO ×4 (06:02→20:19)
[2024-01-13 06:51] LABS: Bedside Glucose 100 mg/dL (74-106)
[2024-01-13] MEDS: Pantoprazole Sodium 40 MG Tablet PO ×2 (08:47→20:19)
[2024-01-13] MEDS: Spironolactone 25 MG Tablet PO (08:47)
[2024-01-13] MEDS: Lisinopril 5 MG Tablet PO (08:47)
[2024-01-13] MEDS: Clopidogrel Bisulfate 75 MG Tablet PO (08:48)
[2024-01-13] MEDS: Carvedilol 12.5 MG Tablet PO ×2 (08:48→16:33)
[2024-01-13] MEDS: Glimepiride 2 MG Tablet PO (08:48)
[2024-01-13] MEDS: Petrolatum 33% Tube 1 APPLIC TOPICAL ×2 (08:49→20:19)
--- NOTE | 2024-01-13 12:10 | CASEMGMT ---
Addendum entered by Jesus Alberto Medina 01/13/24 12:42: SW completed Notice of Medicare Non-Coverage for current Residential Facility effective 01/13/2024. Patient requested to discharge. Patient provided verbal understanding of NOMNC and provided signature. SW provided patient a copy of NOMNC and placed a copy in medical chart. Original Note: Social Work SW met with patient at bedside to discuss discharge plans. Patient informed SW that she was frustrated about discharge delay. Patient's discharge was held due to EGD procedure. Patient is requesting to discharge today. SW informed patient that discharge can be rearranged due to delay. Patient informed SW that she would like [facility] for home health care support of PT/OT/SN. Patient informed SW that she received a text from her pharmacy informing her of a bill for Rx cost $500+. Patient is discharging on Xarelto. The patient informed SW that she is unable to afford expense. SW provided patient with 30 day trial for Xarelto to assist with patient cost. The patient informed SW that she will contact pharmacy to inform of 30 day trial. JOCE submitted referral to home health care provider: Alli Rubio via [facility] Discharge: Home with home health PT/OT/SN ANGELA Hopson
[2024-01-13] MEDS: traMADol 50 MG Tablet PO (12:39)
--- NOTE | 2024-01-13 12:43 | CASEMGMT ---
Social Work SW met with patient at bedside to complete MDS. BIM () and PhQ-2 (0) ANGELA Hopson
[2024-01-13 13:39] VITALS: BP 120/49; PULSE 96; RESP 18; TEMP 36.5; O2SAT 98
--- NOTE | 2024-01-13 13:51 | CASEMGMT ---
Social Work JOCE received a confirmation of acceptance for home health care from provider: Alli Garner JOCE notified patient of acceptance. Discharge 01/14/2024: Home with home health ANGELA Mcwilliams
[2024-01-13 20:00] VITALS: BP 109/51; PULSE 67; PULSE 93; RESP 17; TEMP 36.2; O2SAT 93; O2SAT 96
[2024-01-13] MEDS: Atorvastatin Calcium 40 MG Tablet PO (20:19)
[2024-01-13] MEDS: Menthol/Lanolin/Calamine/Znox 113 GM Tube 1 APPLIC TOPICAL (20:20)
[2024-01-14 05:44] LABS: Hematocrit 28.8 % (37-47); Hemoglobin 9.5 g/dL (12.0-15.0)
[2024-01-14] MEDS: Sucralfate 1 GM Tablet PO (06:14)
[2024-01-14] MEDS: Metoclopramide 5 MG TABLET PO (06:14)
[2024-01-14 06:38] LABS: Bedside Glucose 121 mg/dL (74-106)
[2024-01-14] MEDS: Glimepiride 2 MG Tablet PO (07:45)
[2024-01-14] MEDS: Carvedilol 12.5 MG Tablet PO (07:45)
[2024-01-14] MEDS: Spironolactone 25 MG Tablet PO (07:46)
[2024-01-14] MEDS: Clopidogrel Bisulfate 75 MG Tablet PO (07:46)
[2024-01-14] MEDS: Lisinopril 5 MG Tablet PO (07:46)
[2024-01-14] MEDS: Pantoprazole Sodium 40 MG Tablet PO (07:46)
[2024-01-14] MEDS: traMADol 50 MG Tablet PO (07:50)
[2024-01-14] MEDS: Petrolatum 33% Tube 1 APPLIC TOPICAL (07:53)
[2024-01-14] MEDS: Menthol/Lanolin/Calamine/Znox 113 GM Tube 1 APPLIC TOPICAL (07:54)
[2024-01-14 08:19] VITALS: PULSE 91; RESP 16; O2SAT 97
[2024-01-14 08:51] VITALS: BP 120/45; PULSE 91; RESP 16; TEMP 36.8; O2SAT 97
== END 2024-01-14 08:52 | disposition home health service (06) | DRG 949 ==
PROVIDERS: Admitting Provider Family Medicine Geriatric Medicine; PCP Family Medicine; Visit Provider Family Medicine Geriatric Medicine
DX: Z48.812 Encounter for surgical aftercare following surgery on the circulatory system (principal); K25.4 Chronic or unspecified gastric ulcer with hemorrhage; K26.4 Chronic or unspecified duodenal ulcer with hemorrhage; L97.419 Non-pressure chronic ulcer of right heel and midfoot with unspecified severity; D62 Acute posthemorrhagic anemia; E11.51 Type 2 diabetes mellitus with diabetic peripheral angiopathy without gangrene; E11.621 Type 2 diabetes mellitus with foot ulcer; I70.234 Atherosclerosis of native arteries of right leg with ulceration of heel and midfoot; I10 Essential (primary) hypertension; I65.23 Occlusion and stenosis of bilateral carotid arteries; E78.00 Pure hypercholesterolemia, unspecified; R04.0 Epistaxis; Z87.891 Personal history of nicotine dependence; Z79.84 Long term (current) use of oral hypoglycemic drugs; Z79.899 Other long term (current) drug therapy; Z79.02 Long term (current) use of antithrombotics/antiplatelets; Z79.01 Long term (current) use of anticoagulants
CPT/HCPCS: 36415; 80048; 80061; 82274; 82962; 85014; 85018; 85025; 86850; 86900; 86901; 86920; 86922; 87811; 97110; 97116; 97150; 97162; 97166; 97530; 97535; 97802; A4216

== ENCOUNTER → 2023-12-30 | Outpatient (CLI) | payer MEDICARE, OTHER, SELFPAY ==
--- NOTE | 2023-12-30 09:16 | VDLE_ITS ---
Reason For Study: RLE Swelling RIGHT LEFT Unable to visualize CFV and SFJ due to CFV is compressible, spontaneous, phasic, bandages and surgical wound. competent, and demonstrates normal GSV is normal. augmentation. FV is compressible, spontaneous, phasic, competent and demonstrates normal augmentation. POP V is compressible, spontaneous, phasic, competent and demonstrates normal augmentation. T/P Trunk is compressible. PTV and [place] V only visualized from mid calf to ankle due to bandages and surgical wound PTV is compressible. RT PerV is compressible. Procedure This is a venous duplex using B-mode, color flow and spectral Doppler. Exam performed portable in patient room. Limited views were obtained. A preliminary report was called and/or faxed to TCU RU responsible for patient. VL/Venous Duplex US, Unilateral Interpretation Summary Deep veins of the right lower extremity are patent and compressible segmentally . There is no evidence of right lower extremity deep vein thrombosis. The right [place] vein appears patent and compressible segmentally. Limited due to dressings Ordering Physician: Jamel Matthews Chi Referring Physician: Jamel Matthews Chi Performed By: Khari Graham RVT
== END | disposition home or self-care (01) ==
LOC: CVS 09:14
PROVIDERS: PCP Family Medicine; Referring Provider Family Medicine Geriatric Medicine; Visit Provider Family Medicine Geriatric Medicine
DX: R22.41 Localized swelling, mass and lump, right lower limb (principal)
CPT/HCPCS: 93971

== ENCOUNTER 2024-01-06 15:08 | Emergency (ER) | payer MEDICARE, OTHER, SELFPAY ==
[2024-01-06 15:10] VITALS: RESP 12; TEMP 36.7; BMI 26.3
--- NOTE | 2024-01-06 15:14 | CT_ITS ---
STUDY: CT HEAD STROKE PROTOCOL W/O CONTRAST INJECTION REASON FOR EXAM: Female, 73 years old. CVA RADIATION DOSAGE (If Supplied By Facility): CTDIvol = ( 44.99 ) mGy, DLP = ( 779.24 ) mGycm TECHNIQUE: Transaxial CT imaging of the brain was performed without administration of intravenous contrast material. Individualized dose optimization techniques were used for this CT. COMPARISON: No relevant priors. FINDINGS: Normal soft tissue structures. Normal calvarium. There is mild cerebral atrophy with widening of the extra-axial spaces and ventricular dilatation. There are areas of decreased attenuation within the white matter tracts of the supratentorial brain, consistent with microvascular disease changes. Normal basal ganglia and thalami. Normal brainstem. Normal cerebellum. There is no intracranial hemorrhage. There are no findings of an acute ischemic infarction. Mucosal polyp or retention cyst at the base of the right maxillary sinus posteriorly. ASPECT score: 10 CT/STROKE Brain/Head without Cont IMPRESSION: Chronic involutional changes of the brain. N.B. : The above Results were Read Back by Alejo Calderon MD to Umang Carias and understanding confirmed on 01/06/2024 15:26:16 (ET). Electronically Signed: Alejo Calderon MD at 15:27 EDT ,
--- NOTE | 2024-01-06 15:14 | EX.ED.VIS.HA ---
HPI History of Present Illness Chief Complaint: Stroke Alert Detail of Chief Complaint: Headache Informant: patient Narrative Narrative: Patient presents to the emergency department complaint of a headache that started around 1 PM today. Headache came on suddenly. Patient states pain is on the right side of her head. Patient currently admitted to the transitional care unit. Patient had right iliac stent placement on December 25. She has a history of peripheral artery disease. Patient on Xarelto and her last dose was last evening. Patient denies photophobia. She does complain of a little bit of nausea. She is never had a headache like this before. Patient brought down as a stroke team for concern for possible hemorrhagic stroke. She denies any difficulty speech or vision. She denies difficulty with weakness to the extremities. [facility] Medical History Post-menopausal Anxiety Discoloration of skin Arthritis Uses wheelchair Walker as ambulation aid Anemia Back pain Dietary restriction History of diverticulitis Heartburn Leg cramps History of pain when walking History of edema Wears glasses Wears dentures Diabetes High cholesterol Hypertension Former smoker History of echocardiogram History of stress test Cardiology follow-up encounter History of CHF (congestive heart failure) Home Medications ?Medication ?Instructions ?Recorded ?Last Taken ?Type carvedilol 12.5 mg tablet 12.5 mg PO BID HEART 01/22/23 12/26/23 History clopidogrel 75 mg tablet 75 mg PO DAILY BLOOD THINNER 01/22/23 12/26/23 History lisinopril 5 mg tablet 5 mg PO DAILY BP 01/22/23 12/26/23 History rosuvastatin 20 mg tablet 20 mg PO QHS CHOLESTEROL 01/22/23 12/25/23 History spironolactone 25 mg tablet 25 mg PO DAILY WATER PILL 01/22/23 12/25/23 History glimepiride 2 mg tablet 2 mg PO DAILY DIABETES 01/30/23 12/25/23 History prochlorperazine maleate 5 mg 5 mg PO TID PRN nausea and 12/12/23 Unknown Rx tablet (Compazine) vomiting #14 tabs tramadol 50 mg tablet 50 mg PO Q6H PRN PRN pain 12/20/23 12/25/23 History rivaroxaban 20 mg tablet (Xarelto) 20 mg PO DAILY clot prevention #30 12/27/23 Unknown Rx tabs Allergy/AdvReac Type Severity Reaction Status Date / Time cilostazol (From Pletal) AdvReac Intermediate irregular Verified 12/26/23 05:59 heart beats/nose bleeds Surgical History Hx of colonoscopy Hx of extremity bypass graft History of angioplasty History of carotid angioplasty History of cholecystectomy (~2010) History of hand surgery History of carpal tunnel surgery History of hysterectomy (~1999) Social History (Updated 12/29/23 @ 20:[address] Jamel Matthews MD) household members: none Smoking Status: Former smoker alcohol intake: never substance use type: does not use ROS ROS ED Review of Systems ROS Unobtainable: other Constitutional Constitutional ED: Reports lethargy; Denies chills, fever(s), sweats or weight loss Eyes Eyes: Denies blurry vision, change in vision or diplopia ENT ENT ED: Denies rhinorrhea or sore throat Cardiovascular Cardiovascular: Reports chest pain and racing heartbeat; Denies orthopnea Respiratory/Chest Respiratory/Chest: Denies cough, dyspnea, dyspnea on exertion, orthopnea or sputum Gastrointestinal Gastrointestinal: Reports nausea; Denies abdominal pain, diarrhea or vomiting Genitourinary Genitourinary ED: Denies dysuria, hematuria or urinary frequency Musculoskeletal Musculoskeletal: Denies arthralgias, back pain, myalgias or neck pain Integumentary Denies abscess, Abrasions or rash Neurologic Neurologic: Reports headache(s); Denies weakness Psychiatric Psychiatric: Denies anxiety, depression or suicidal thoughts Endocrine Endocrinology: Denies polydipsia, polyphagia or polyuria Hematologic/Lymphatic Hematologic/Lymphatic: Denies easy bleeding, easy bruising or lymphadenopathy Allergic/Immunologic Allergic/Immunologic ED: Denies mouth swelling, tongue swelling or urticaria EXAM Physical Exam Const Vital Signs: 01/06/24 15:10 01/06/24 15:31 Temperature 98.1 F Temperature Source Temporal Pulse Rate 100 Respiratory Rate 12 9 L Blood Pressure 150/73 H Blood Pressure Mean 98 Pulse Ox 100 Oxygen Delivery Method Room Air Positive well nourished and well developed General Appearance ED: well developed and NAD HEENT Reports TM's clear and moist mucous membranes normocephalic and atraumatic; Negative for trauma or tenderness Tympanic Membrane ED: Yes TM's clear Eyes PERRL and EOMs intact bilaterally General Eye ED: Negative for pale conjunctiva or scleral icterus Neck no lymphadenopathy, supple and no JVD General: Negative for tenderness Chest Wall inspection of chest normal and palpation of chest normal Chest: Negative for tenderness Resp normal respiratory effort and clear to auscultation bilaterally Effort and Inspection: Negative for respiratory distress or pain with movement Auscultation: Negative for rhonchi, wheezes or diminished lung sounds Cardio regular rate, regular rhythm, S1 normal heart sound, S2 normal heart sound and no murmurs Peripheral Pulses: pulses 2+ throughout GI normal to inspection, nondistended, normoactive bowel sounds, soft to palpation, non-tender, non-distended and no masses Back/Spine no CVA tenderness and no thoracic nor lumbar tenderness Extremity normal to inspection General Extremety ED: Negative for edema General Extremity: Negative for edema Neuro oriented x3, CN's II-XII intact bilaterally, no sensory deficits noted and gait normal Neuro Narrative: No focal deficits on exam. NIH stroke scale is a 0. Finger-nose and heel hunt testing within normal limits. Negative Romberg, negative for drift, fundi benign. Sensorium / Orientation: awake, alert, oriented to person, oriented to place and oriented to time Motor Exam: strength 5/5 throughout and strength abnormal Psych mental status grossly normal Skin no rashes or lesions noted and no wounds MDM MDM MDM Narrative Medical decision making narrative: Patient presents with sudden headache with concern for hemorrhagic stroke. She presents from the transitional care unit. Patient on Xarelto and had last dose last night. She is not a thrombolytic candidate. She is not having an embolic type stroke. Patient was evaluated by stroke neurologist who is in agreement. Patient also not a candidate for lumbar puncture. Patient had a CT scan of the brain without contrast that did not show any hemorrhage. She also had CTA of head and neck that showed some chronic stenosis of both carotid arteries. Less than 70%. CBC with differential count of 10.4 with hemoglobin 7.9 and platelet count of 311. Chemistries unremarkable. Patient did receive Reglan 10 mg IV as well as a liter of fluid and 25 mg of Benadryl IV. Headache did improve down to an 8 out of 10. Will order 1 dose of morphine. Cannot give her Toradol given her age and the fact that she is on Xarelto. Will discussed with physician staffing the transitional care unit but feel she can be safely discharged back to their care. Discussed case with Dr. Matthews who is patient's physician of record in the transitional care unit. Discussed care and treatment in the emergency department. Patient will be discharged back to the transitional care unit. Lab Data Attestation: I reviewed the patient's lab results. Labs: Laboratory Results - last 24 hr 01/06/24 15:20 WBC 10.4 RBC 2.65 L Hgb 7.9 L Hct 24.7 L MCV 93.2 MCH 29.8 MCHC 32.0 RDW Std Deviation 50.2 H RDW Coeff of Pricila 15.3 H Plt Count 311 MPV 9.2 Immature Gran % (Auto) 1.100 H Neut % (Auto) 73.9 H Lymph % (Auto) 14.5 L Kern % (Auto) 9.2 Eos % (Auto) 0.8 Baso % (Auto) 0.5 Absolute Neuts (auto) 7.7 Absolute Lymphs (auto) 1.50 Nucleated RBC % 0.3 PT 19.7 H INR 1.7 Sodium 131 L Potassium 4.4 Chloride 100 Carbon Dioxide 24.0 Anion Gap 7 BUN 23 H Creatinine 0.90 Estim Creat Clear Calc 45.99 Est GFR (MDRD) Af Amer 78 Est GFR (MDRD) Non-Af 65 BUN/Creatinine Ratio 25.5 H Glucose 115 H Calcium 9.1 Radiography Diagnostic Testing: Clinical Impression(s) from Imaging Studies Brain CT 01/06/24 15:14 IMPRESSION: Chronic involutional changes of the brain. N.B. : The above Results were Read Back by Alejo Calderon MD to Umang Carias and understanding confirmed on 01/06/2024 15:26:16 (ET). Electronically Signed: Alejo Calderon MD at 15:27 EDT , ADDENDUM: 01/06/24 7399 IMPRESSION: Chronic involutional changes of the brain. N.B. : The above Results were Read Back by Alejo Calderon MD to Umang Carias and understanding confirmed on 01/06/2024 15:26:16 (ET). Electronically Signed: Alejo Calderon MD at 15:27 EDT , Head/Neck CTA 01/06/24 15:22 IMPRESSION: Calcific plaque in the midportion of the left common carotid artery causing at least 60% narrowing. Calcific plaque in the cavernous portion of the left internal carotid artery causing 50-70% stenosis. Less than 50% stenosis at the level of the cavernous portion of the left internal carotid artery. 50-69% stenosis in the origin of the right common iliac artery. N.B. : The above Results were Read Back by Alejo Calderon MD to Umang Carias and understanding confirmed on 01/06/2024 15:42:47 (ET). Electronically Signed: Alejo Calderon MD at 15:44 EDT , ADDENDUM: 01/06/24 1550 IMPRESSION: Calcific plaque in the midportion of the left common carotid artery causing at least 60% narrowing. Calcific plaque in the cavernous portion of the left internal carotid artery causing 50-70% stenosis. Less than 50% stenosis at the level of the cavernous portion of the left internal carotid artery. 50-69% stenosis in the origin of the right common iliac artery. N.B. : The above Results were Read Back by Alejo Calderon MD to Umang Carias and understanding confirmed on 01/06/2024 15:42:47 (ET). Electronically Signed: Alejo Calderon MD at 15:44 EDT , Discharge Plan Triage Chief Complaint: Stroke Alert Other Complaint: Headache ED Provider: Umang Carias Dx/Rx/DC Orders Clinical Impression: Headache Instructions: ED Headache Unspecified Prescriptions: No Action spironolactone 25 mg tablet 25 mg PO DAILY clopidogrel 75 mg tablet 75 mg PO DAILY lisinopril 5 mg tablet 5 mg PO DAILY carvedilol 12.5 mg tablet 12.5 mg PO BID Rx Instructions: must administer with a meal/food rosuvastatin 20 mg tablet 20 mg PO QHS glimepiride 2 mg tablet 2 mg PO DAILY Patient Comments: TAKE 1 TABLET BY MOUTH ONCE DAILY prochlorperazine maleate [Compazine] 5 mg tablet 5 mg PO TID PRN (Reason: nausea and vomiting) Qty: 14 0RF tramadol 50 mg tablet 50 mg PO Q6H PRN PRN (Reason: pain) Xarelto 20 mg tablet 20 mg PO DAILY Qty: 30 1RF Rx Instructions: must administer with evening meal Primary Care Provider: Ge Montero Referrals: Ge Montero MD [Primary Care Provider] - Print Language: Surinamese Disposition Disposition: Home, Self Care
[2024-01-06 15:19] VITALS: BMI 26.3
--- NOTE | 2024-01-06 15:22 | CT_ITS ---
STUDY: CTA HEAD AND NECK WITH CONTRAST REASON FOR EXAM: Female, 73 years old. Headache RADIATION DOSAGE (If Supplied By Facility): CTDIvol = ( 19.50 ) mGy, DLP = ( 699.45 ) mGycm TECHNIQUE: CT angiography was performed with a multi-detector CT scanner. Data acquisition was obtained from the skull base through the vertex following intravenous administration of IV 100mL Isovue-370. MIP images were reconstructed from the axial data set. Post-processing of the angiographic images was performed, with multiplanar reformation and 3D reconstruction. Individualized dose optimization techniques were used for this CT. COMPARISON: No relevant priors. FINDINGS: Normal bilateral petrous carotid arteries. There is calcified plaque formation of the right cavernous carotid artery, with a mild stenosis (less than 50%). There is calcified plaque formation of the left cavernous carotid artery, with a moderate stenosis (50-75%). Normal right A1 segments of the anterior cerebral artery. Normal left A1 segments of the anterior cerebral artery. Normal intact anterior communicating artery (ACOM). Normal bilateral A2 segments of the anterior cerebral arteries. Normal right M1 and M2 segments of the middle cerebral arteries, with a normal M1 bifurcation. Normal left M1 and M2 segments of the middle cerebral arteries, with a normal M1 bifurcation. Normal right posterior communicating artery (PCOM). Normal left posterior communicating artery (PCOM). Normal bilateral vertebral arteries. Normal basilar artery with a normal basilar bifurcation. The visualized bilateral superior cerebellar (SCA) arteries are normal. Normal bilateral P1, P2 and visualized P3 segments of the posterior cerebral arteries. There is no demonstrated aneurysm of the campo of [place]. Degenerative changes of the visualized brain. Heterogeneous enlargement of the thyroid bilaterally worse on the right side. AORTIC ARCH: There is atherosclerotic calcific plaque formation of the aortic arch and great vessels arising from the aortic arch, without a hemodynamically significant stenosis. There is a normal origin of the brachiocephalic, left common carotid, and left subclavian arteries. Atherosclerotic plaque formation at the origin of the right brachiocephalic artery as well as the left subclavian artery. Moderate degree of stenosis at the origin of the left common carotid artery. RIGHT CAROTID ARTERIES: Normal right common carotid artery (CCA). Normal right common carotid bulb. There is moderate atherosclerotic plaque formation of the origin of the right internal carotid artery with an estimated stenosis of 50-69% stenosis. Normal visualized cervical portion of the right internal carotid artery. Normal origin of the right external carotid artery (ECA). LEFT CAROTID ARTERIES: There is atherosclerotic plaque formation of the common carotid artery causing at least a 60% stenosis in the midportion of the left common carotid artery. Normal left common carotid bulb. Normal origin of the left internal carotid (ICA) artery without a hemodynamically significant stenosis. Normal visualized cervical portion of the left internal carotid artery. Normal origin of the left external carotid artery (ECA). VERTEBRAL ARTERIES: Normal bilateral vertebral arteries. CT/STROKE CTA Head AND Neck W/Con IMPRESSION: Calcific plaque in the midportion of the left common carotid artery causing at least 60% narrowing. Calcific plaque in the cavernous portion of the left internal carotid artery causing 50-70% stenosis. Less than 50% stenosis at the level of the cavernous portion of the left internal carotid artery. 50-69% stenosis in the origin of the right common iliac artery. N.B. : The above Results were Read Back by Alejo Calderon MD to Umang Carias and understanding confirmed on 01/06/2024 15:42:47 (ET). Electronically Signed: Alejo Calderon MD at 15:44 EDT ,
[2024-01-06] MEDS: DiphenhydrAMINE 50 MG/ML Syringe 25 MG IV (15:30)
[2024-01-06] MEDS: Metoclopramide 10 MG/2 ML Vial IV (15:30)
[2024-01-06 15:31] VITALS: BP 150/73; PULSE 100; RESP 9; O2SAT 100
[2024-01-06 15:38] LABS: Absolute Neutrophil Count 7.7 X10^3/uL (2.0-7.7); Basophil# 0.05 X10^3/uL; Basophil% 0.5 % (0-1); Eosinophil# 0.08 X10^3/uL; Eosinophils% 0.8 % (0-5); Hematocrit 24.7 % (37-47); Hemoglobin 7.9 g/dL (12.0-15.0); Lymphocyte % 14.5 % (19-41); Mean Corpuscular Hgb 29.8 pg (27.0-32.0); Mean Corpuscular Volume 93.2 fL (81-99); Mean Platelet Vol. 9.2 fl (6.2-12.0); Monocyte# 0.95 X10^3/uL; Monocyte% 9.2 % (0-10); NRBC Flagged by Analyzer 0.3 % (0-5); Neutrophil # 7.69 X10^3/uL (2.7-7.7); Neutrophil % 73.9 % (47-70); Platelet Count 311 K/mm3 (150-450); RBC Distribution Width CV 15.3 % (11.6-14.6); RBC Distribution Width SD 50.2 fl (35.1-43.9); Red Blood Count 2.65 M/mm3 (4.2-5.4); White Blood Count 10.4 K/mm3 (4.4-11.0)
--- NOTE | 2024-01-06 15:49 | ED.RN ---
Per Dr. Carias ok to discontinue NIH assessments
[2024-01-06] MEDS: 0.9% Normal Saline (1000mL) 1,000 ML 150 ML IV (15:50)
[2024-01-06 15:57] LABS: Anion Gap 7 (5-15); BUN 23 mg/dL (7-18); BUN/Creat Ratio 25.5 RATIO (10-20); Calcium,Total 9.1 mg/dL (8.5-10.1); Chloride 100 mmol/L (98-107); EST Glomerular Filtration Rate 65 mL/min (>60); Est Glom Filt Rate - Afr Amer 78 mL/min (>60); Estimated Creatinine Clearance 45.99 ml/min; Glucose 115 mg/dL (74-106); Potassium 4.4 mmol/L (3.5-5.1); Sodium Level 131 mmol/L (136-145)
[2024-01-06 16:10] LABS: International Normalized Ratio 1.7; Prothrombin Time (Protime)PT. 19.7 SECONDS (11.7-14.9)
[2024-01-06 16:56] VITALS: BP 112/46; PULSE 82; RESP 18; TEMP 36.4; O2SAT 98
== END 2024-01-06 16:58 | disposition home or self-care (01) ==
PROVIDERS: Emergency Provider Emergency Medicine; PCP Family Medicine; Visit Provider Emergency Medicine
DX: R51.9 Headache, unspecified (principal); I11.0 Hypertensive heart disease with heart failure; E11.22 Type 2 diabetes mellitus with diabetic chronic kidney disease; E78.00 Pure hypercholesterolemia, unspecified; Z79.899 Other long term (current) drug therapy; Z79.02 Long term (current) use of antithrombotics/antiplatelets; Z79.84 Long term (current) use of oral hypoglycemic drugs; Z95.820 Peripheral vascular angioplasty status with implants and grafts; Z90.49 Acquired absence of other specified parts of digestive tract; Z90.710 Acquired absence of both cervix and uterus; Z79.01 Long term (current) use of anticoagulants
CPT/HCPCS: 70450; 70496; 70498; 80048; 85025; 85610; 96374; 96375; 99285; J7030; Q9967; A4216

== ENCOUNTER 2024-01-07 14:00 | Day surgery (SDC) | payer MEDICARE, OTHER, SELFPAY ==
--- NOTE | 2024-01-07 15:04 | PCM.PRE.AN2 ---
ASA Classification* ASA Classification ASA Classification: 3 Assessment & Plan Anesthesia* Anesthesia Assessment Anesthesia Assessment: Discussed sedation and/or anesthesia options, risks, benefits, and alternatives with patient/parents/legal guardian/POA. Questions invited. The patient/parents/legal guardian/POA seems to understand and agrees to proceed with anesthesia plan. Reviewed the physical assessment, medical history, allergy history and patient home medications list prior to surgery/procedure/anesthetic and documented any changes. Performed airway and anesthesia risk assessments. Procedural Plan Procedural Plan:: Proceed w/ Anesthesia plan Anesthesia Type Anesthesia Type: MAC History Source History Obtained from:: Patient and Chart Anesthesia Focused Assessment* Temperature: 97.9 F Pulse Rate: 104 Blood Pressure: 130/67 Respiratory Rate: 16 Pulse Ox: 100 Oxygen Delivery Method: Room Air Airway Assessment Mouth opens: >3 cm Mallampati Score: I Teeth Condition: Dentures (Dentures are out.) and Full Neck Range of motion (ROM): Full ROM Pertinent Findings Other Pertinent Findings:: Fingerstick blood sugar was 126 Focused Labs Anesthesia Preop lab: CBC WBC 10.4 K/mm3 (4.4-11.0) 01/06/24 15:20 RBC 2.65 M/mm3 (4.2-5.4) L 01/06/24 15:20 Hgb 7.9 g/dL (12.0-15.0) L 01/06/24 15:20 Hct 24.7 % (37-47) L 01/06/24 15:20 Plt Count 311 K/mm3 (150-450) 01/06/24 15:20 CHEMISTRY Potassium 4.4 mmol/L (3.5-5.1) 01/06/24 15:20 Sodium 131 mmol/L (136-145) L 01/06/24 15:20 BUN 23 mg/dL (7-18) H 01/06/24 15:20 Creatinine 0.90 mg/dL (0.55-1.02) 01/06/24 15:20 Glucose 115 mg/dL (74-106) H 01/06/24 15:20 POC Glucose 135 mg/dL (74-106) H 01/07/24 05:52 COAG PT 19.7 SECONDS (11.7-14.9) H 01/06/24 15:20 Pre-Assessment Diagnosis/Proposed Procedure Planned Operative Procedure(s): EGD Anesthesia History 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 When Was Last Pacemaker Check QUESTION #4 FULL TEXT: You/Your Family Experience fever (hyperthermia) with Anesthesia Last Oral Intake Last Oral intake: Last Oral Intake NPO since Meds taken in AM with sips of water? 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 panelboard operator: PONV - ethylene oxide panelboard operator Female HX of Motion Sickness HX of N/V After Surgery Non-Smoker Duration of Surgery greater than 60 minutes Number of Risk Factors PONV Score Height & Weight Height & Weight: Anesthesia: Height & Weight Height 5 ft 1 in 01/06/24 15:19 Respiratory Assessment Respiratory Assessment - ethylene oxide panelboard operator: Respiratory Tract Infection Hx - ethylene oxide panelboard operator Hx Respiratory Tract Infection No 12/20/23 11:30 STOP Sleep Apnea STOP Sleep Apnea - ethylene oxide panelboard operator: STOP Sleep Apnea - ethylene oxide panelboard operator Hx Hypertension Yes 12/30/23 10:31 Hx Sleep Apnea No 12/29/23 15:03 CPAP BIPAP Do you snore loudly (louder than talking or can be heard Do you often feel tired/ fatigued/ sleepy during daytime? Has anyone observed you stop breathing during sleep? STOP Results QUESTION #5 FULL TEXT : Do you snore loudly (louder than talking or can be heard through closed doors)? 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 Specify any problems Hx of Preganancy in last 3 Months Nurse Filling Out Transfusion & Questions: Date: Time: Patient unable to answer at this time (ie. confused, unrespo /Reproduction History /Reproductive History - ethylene oxide panelboard operator: /Reproductive Hx- ethylene oxide panelboard operator Hx Now Gestational Age (in weeks): EDC: Hx Hx Para Hx Section SAB No 12/20/23 11:30 Active Medications Active Medications: Current Medications Generic Name Dose Route Start Last Admin Trade Name Freq PRN Reason Stop Dose Admin Lactated Ringer's 1,000 mls @ 15 mls/hr 01/07/24 15:15 IV .Q48H GLENNY PFSH Medical History Post-menopausal Anxiety Discoloration of skin Arthritis Uses wheelchair Walker as ambulation aid Anemia Back pain Dietary restriction History of diverticulitis Heartburn Leg cramps History of pain when walking History of edema Wears glasses Wears dentures Diabetes High cholesterol Hypertension Former smoker History of echocardiogram History of stress test Cardiology follow-up encounter History of CHF (congestive heart failure) Home Medications ?Medication ?Instructions ?Recorded ?Last Taken ?Type carvedilol 12.5 mg tablet 12.5 mg PO BID HEART 01/22/23 01/07/24 History clopidogrel 75 mg tablet 75 mg PO DAILY BLOOD THINNER 01/22/23 01/06/24 History lisinopril 5 mg tablet 5 mg PO DAILY BP 01/22/23 01/07/24 History rosuvastatin 20 mg tablet 20 mg PO QHS CHOLESTEROL 01/22/23 12/25/23 History spironolactone 25 mg tablet 25 mg PO DAILY WATER PILL 01/22/23 12/25/23 History glimepiride 2 mg tablet 2 mg PO DAILY DIABETES 01/30/23 12/25/23 History prochlorperazine maleate 5 mg 5 mg PO TID PRN nausea and 12/12/23 Unknown Rx tablet (Compazine) vomiting #14 tabs tramadol 50 mg tablet 50 mg PO Q6H PRN PRN pain 12/20/23 12/25/23 History rivaroxaban 20 mg tablet (Xarelto) 20 mg PO DAILY clot prevention #30 12/27/23 Unknown Rx tabs Allergy/AdvReac Type Severity Reaction Status Date / Time cilostazol (From Pletal) AdvReac Intermediate irregular Verified 01/07/24 15:06 heart beats/nose bleeds Surgical History Hx of colonoscopy Hx of extremity bypass graft History of angioplasty History of carotid angioplasty History of cholecystectomy (~2010) History of hand surgery History of carpal tunnel surgery History of hysterectomy (~1999) Social History household members: none Smoking Status: Former smoker alcohol intake: never substance use type: does not use Review of Systems (Anesthesia) ROS Narrative System reviewed and no additional complaints, except as documented.
[2024-01-07 15:08] VITALS: BP 130/67; PULSE 104; RESP 16; TEMP 36.6; O2SAT 100; BMI 26.6
[2024-01-07] MEDS: Lactated Ringers 1,000 ML 15 ML IV (15:20)
[2024-01-07 15:40] LABS: Bedside Glucose 126 mg/dL (74-106)
[2024-01-07 15:52] VITALS: BP 130/67; PULSE 104; RESP 16; TEMP 36.6; O2SAT 100
--- NOTE | 2024-01-07 16:00 | EGD_PTH ---
PATIENT: ESTEFANIA COWAN LOC: EN U#:[id number] AGE/SX: 73/F ROOM: RE01/07/[address]: Dr. Germán Giron DO : 1950 BED: DIS: 01/07/2024 SPEC #: [id number] RECD: 01/07/24 18:00 STATUS: STEFFI RELorna #: [id number] MARCELLA: 01/07/24 16:[address]: Germán Giron DEPT: SURGICAL PATHOLOGY RECD BY: Rolanda Contreras ENTERED: 01/08/24 10:27 SP TYPE: EGD BIOPSY OTHR DR: Dr. Ge Montero MD Tissues: Gastric mucous membrane Procedures: Surgery Specimen Level IV HEADER OPERATION: EGD PRE-OP DIAGNOSIS: Abdominal pain TISSUE SUBMITTED: Gastric ulcer MICROSCOPIC DIAGNOSIS Gastric ulcer, biopsy: Chronic active gastritis. GEORGIE/ 01/09/2024 COMMENT The results of immunohistochemistry for Helicobacter pylori will be reported separately ([id number]). MICROSCOPIC DESCRIPTION Slides are reviewed. GROSS DESCRIPTION Received in fixative is one container labeled with the patient's name and designated Gastric ulcer biopsy. The specimen consists of multiple irregular fragments of light samuel soft tissue that in aggregate measure 1.0 x 0.3 x 0.1 cm. The specimen is totally submitted in one cassette. GEORGIE/ 01/08/2024 TC:2 CPT:02897
--- NOTE | 2024-01-07 16:00 | IMM_PTH ---
PATIENT: ESTEFANIA COWAN LOC: EN U#:[id number] AGE/SX: 73/F ROOM: RE01/07/[address]: Dr. Germán Giron DO : 1950 BED: DIS: 01/07/2024 SPEC #: [id number] RECD: 01/08/24 08:30 STATUS: STEFFI REQ #: [id number] MARCELLA: 01/07/24 16:[address]: Germán Giron DEPT: IMMUNOHISTOCHEMISTRY RECD BY: Cullen Hernandez ENTERED: 01/08/24 08:30 SP TYPE: IMMUNO OTHR DR: Dr. Ge Montero MD Tissues: Gastric mucous membrane Procedures: H Pylori (initial) PHYSICIAN & INSTITUTION [place] [id number] SPECIMEN INFORMATION: Tissue Source: Gastric ulcer Clinical Info: Abdominal pain Specimen Number: [id number] CPT code: 91259 METHODOLOGY: Deparaffinized sections of prefer/formalin-fixed tissue or PAP/DQ stained slides are incubated with monoclonal/polyclonal antibodies/oligonucleotide probes. Localization is made via biotin free immunoperoxidase method. Appropriate controls are performed and reacted as expected. Results on target cell population are indicated in the following table: RESULTS: ANTIBODY / CLONE RESULT H Pylori (polyclonal) negative These tests were developed and their performance characteristics determined by [facility]. They may not have been cleared or approved by the U.S. Food and Drug Administration. The FDA has determined that such clearance or approval is not necessary. The above immunohistochemical/dualISH markers are ordered and reviewed by the Pathologist. INTERPRETATION: Gastric ulcer, biopsy: Negative for Helicobacter pylori organisms. GEORGIE/ 01/09/2024
[2024-01-07 16:41] VITALS: BP 130/67; BP 78/47; PULSE 106; RESP 16; TEMP 36.1; O2SAT 98
--- NOTE | 2024-01-07 16:44 | PCM.POST.ANE ---
Anesthesia: Postop Eval I Current Vital Signs Temperature: 97.4 F Pulse Rate: 97 Blood Pressure: 119/42 Respiratory Rate: 16 Pulse Ox: 98 Oxygen Delivery Method: Room Air Assessment Airway patent: Yes Spontaneous unlabored respirations: Yes Mental status: Awake and Calm nausea: No Vomiting: No Anesthesia Complication: No Fluid Hydration Crystalloid volume administer (ml): 400 Total IV fluid infused: 400 Progress Note Anesthesia document: Postop Eval 1 completed: Yes
[2024-01-07 16:45] VITALS: BP 119/42; BP 130/67; PULSE 98; RESP 16; O2SAT 97
[2024-01-07 16:48] VITALS: BP 119/42; PULSE 97; RESP 16; TEMP 36.3; O2SAT 98
[2024-01-07 16:50] VITALS: BP 109/49; BP 130/67; PULSE 97; RESP 16; TEMP 36.1; O2SAT 97
--- NOTE | 2024-01-07 17:08 | PCM.POSTANE2 ---
Anesthesia Postop Eval I Sum Postop Eval Completion status Anesthesia document: Postop Eval 1 completed: Yes Anesthesia Postop Eval I Summary Anesthesia Postop Eval I Summary: Anesthesia Postop Eval I: Assessment Summary Airway patent Yes 01/07/24 16:48 [email or web address] Spontaneous unlabored Yes 01/07/24 16:48 [email or web address] respirations Mental status Awake,Calm 01/07/24 16:48 [email or web address] nausea No 01/07/24 16:48 [email or web address] Vomiting No 01/07/24 16:48 [email or web address] Anesthesia Postop Eval I: Fluid Summary Crystalloid volume administer 400 01/07/24 16:48 [email or web address] (ml) Colloids volume administered ( ml) Blood Product volume administered (ml) Total IV fluid infused 400 01/07/24 16:48 [email or web address] Anesthesia Postop Eval I: Summary Notes Anesthesia Complication No 01/07/24 16:48 [email or web address] Anesthesia Complication Comment: Post-operative progress note Anesthesia: Postop Eval II Evaluation Mental status: Awake and Calm Pain Level: 0 nausea: No Vomiting: No Complications Anesthesia Complication: No
--- NOTE | 2024-01-07 17:11 | OP.EGD_ITS ---
Patient Name: Liliana Garnett Procedure Date: 01/07/2024 4:04 PM Date of : 1950 Age: 73 Procedure: Upper GI endoscopy Indications: Epigastric abdominal pain, Melena Providers: Germán Giron DO Medicines: Monitored Anesthesia Care Patient Profile: This is a 73 year old female. Refer to note in patient chart for documentation of history and physical. Patient has symptoms of acute epigastric abdominal pain. Complications: No immediate complications. Procedure: Pre-Anesthesia Assessment: - Prior to the procedure, a History and Physical was performed, and patient medications and allergies were reviewed. The patient is competent. The risks and benefits of the procedure and the sedation options and risks were discussed with the patient. All questions were answered and informed consent was obtained. Patient identification and proposed procedure were verified by the physician in the pre-procedure area. Mental Status Examination: alert and oriented. Airway Examination: normal oropharyngeal airway and neck mobility. Respiratory Examination: clear to auscultation. CV Examination: normal. Prophylactic Antibiotics: The patient does not require prophylactic antibiotics. Prior Anticoagulants: The patient has taken no anticoagulant or antiplatelet agents. ASA Grade Assessment: III - A patient with severe systemic disease. After reviewing the risks and benefits, the patient was deemed in satisfactory condition to undergo the procedure. The anesthesia plan was to use monitored anesthesia care (MAC). Immediately prior to administration of medications, the patient was re-assessed for adequacy to receive sedatives. The heart rate, respiratory rate, oxygen saturations, blood pressure, adequacy of pulmonary ventilation, and response to care were monitored throughout the procedure. The physical status of the patient was re-assessed after the procedure. After obtaining informed consent, the endoscope was passed under direct vision. Throughout the procedure, the patient's blood pressure, pulse, and oxygen saturations were monitored continuously. The Endoscope was introduced through the mouth, and advanced to the second part of duodenum. The upper GI endoscopy was accomplished without difficulty. The patient tolerated the procedure well. Scope In: 4:29:13 PM Scope Out: 4:36:06 PM Total Procedure Duration Time 0 hours 6 minutes 53 seconds Findings: The examined esophagus was normal. The entire examined stomach was normal. One oozing cratered duodenal ulcer with a visible vessel was found in the duodenal bulb. The lesion was 10 mm in largest dimension. Coagulation for hemostasis using heater probe was successful. Estimated blood loss was minimal. Biopsies were taken with a cold forceps for histology. Verification of patient identification for the specimen was done. Estimated blood loss was minimal. Impression: - Normal esophagus. - Normal stomach. - Oozing duodenal ulcer with a visible vessel. Treated with a heater probe. Biopsied. Recommendation: - [facility] - Resume previous diet. - Continue present medications. - Await pathology results. - Repeat upper endoscopy in 3 months for surveillance. - Omeprazole 40 mg twice daily x 12 weeks - Metoclopramide 5 mg p.o. every 6 hours scheduled x 3 weeks - Carafate 1 g p.o. 3 times daily x 2 weeks Procedure Code(s): --- Professional --- 36637, 59, Esophagogastroduodenoscopy, flexible, transoral; with control of bleeding, any method 85163, 51, Esophagogastroduodenoscopy, flexible, transoral; with biopsy, single or multiple CPT copyright 2021 [employer]. All rights reserved. The codes documented in this report are preliminary and upon environmental protection geologist review may be revised to meet current compliance requirements. Germán Giron DO 01/07/2024 5:10:55 PM This report has been signed electronically. Number of Addenda: 0 Note Initiated On: 01/07/2024 4:04 PM
--- NOTE | 2024-01-07 17:11 | OP.CCLET_ITS ---
01/07/2024 Ge Montero Re : Upper GI endoscopy procedure for Liliana Solano Winston This procedure was performed on Sunday, January 07, 2024. My impressions and recommendations are as follows: Impressions : - Normal esophagus. - Normal stomach. - Oozing duodenal ulcer with a visible vessel. Treated with a heater probe. Biopsied. Recommendations : - [facility]. - Resume previous diet. - Continue present medications. - Await pathology results. - Repeat upper endoscopy in 3 months for surveillance. - Omeprazole 40 mg twice daily x 12 weeks - Metoclopramide 5 mg p.o. every 6 hours scheduled x 3 weeks - Carafate 1 g p.o. 3 times daily x 2 weeks My findings are described in the full procedure note, which is enclosed. If I can be of further assistance, please feel free to contact me at . Sincerely, Germán Giron, 01/07/2024 5:10:55 PM This report has been signed electronically.
== END 2024-01-07 23:59 ==
LOC: EN 06-04 14:26
PROVIDERS: PCP Family Medicine; Referring Provider Family Medicine; Visit Provider Internal Medicine Gastroenterology
PROC: 0DJ08ZZ Inspection of Upper Intestinal Tract, Via Natural or Artificial Opening Endoscopic (ICD-10-PCS; CPT 43235; principal; 2024-01-07 15:55)
DX: K26.9 Duodenal ulcer, unspecified as acute or chronic, without hemorrhage or perforation (principal); E11.9 Type 2 diabetes mellitus without complications; K29.50 Unspecified chronic gastritis without bleeding; I10 Essential (primary) hypertension; E78.00 Pure hypercholesterolemia, unspecified; D64.9 Anemia, unspecified; F41.9 Anxiety disorder, unspecified; M19.90 Unspecified osteoarthritis, unspecified site; I73.9 Peripheral vascular disease, unspecified; Z79.899 Other long term (current) drug therapy; Z79.84 Long term (current) use of oral hypoglycemic drugs; Z79.02 Long term (current) use of antithrombotics/antiplatelets; Z87.891 Personal history of nicotine dependence
CPT/HCPCS: 43255; 43239; 82962; 88305; 88342; J7120; J2405

== ENCOUNTER 2024-01-10 16:46 | Day surgery (SDC) | payer MEDICARE, OTHER, SELFPAY ==
[2024-01-10] VITALS (7 sets, daily range): BP systolic 72–136; BP diastolic 29–60; PULSE 95–106; RESP 16; TEMP 36.3–36.9; O2SAT 88–100; BMI 26.6
[2024-01-10] MEDS: Lactated Ringers 1,000 ML 15 ML IV (14:48)
[2024-01-10 15:00] LABS: Bedside Glucose 90 mg/dL (74-106)
--- NOTE | 2024-01-10 15:40 | PCM.PRE.AN2 ---
ASA Classification* ASA Classification ASA Classification: 3 Assessment & Plan Anesthesia* Anesthesia Assessment Anesthesia Assessment: Discussed sedation and/or anesthesia options, risks, benefits, and alternatives with patient/parents/legal guardian/POA. Questions invited. The patient/parents/legal guardian/POA seems to understand and agrees to proceed with anesthesia plan. Reviewed the physical assessment, medical history, allergy history and patient home medications list prior to surgery/procedure/anesthetic and documented any changes. Performed airway and anesthesia risk assessments. Anesthesia Type Anesthesia Type: MAC History Source History Obtained from:: Patient and Chart Anesthesia Focused Assessment* Temperature: 98.5 F Pulse Rate: 95 Blood Pressure: 136/60 Respiratory Rate: 16 Pulse Ox: 100 Oxygen Delivery Method: Room Air Airway Assessment Mouth opens: >3 cm Mallampati Score: I Teeth Condition: Dentures (Currently dentures are out.) and Full Neck Range of motion (ROM): Full ROM Focused Labs Anesthesia Preop lab: CBC WBC 10.4 K/mm3 (4.4-11.0) 01/06/24 15:20 RBC 2.65 M/mm3 (4.2-5.4) L 01/06/24 15:20 Hgb 7.2 g/dL (12.0-15.0) L 01/10/24 07:47 Hct 23.1 % (37-47) L 01/10/24 07:47 Plt Count 311 K/mm3 (150-450) 01/06/24 15:20 CHEMISTRY Potassium 4.4 mmol/L (3.5-5.1) 01/06/24 15:20 Sodium 131 mmol/L (136-145) L 01/06/24 15:20 BUN 23 mg/dL (7-18) H 01/06/24 15:20 Creatinine 0.90 mg/dL (0.55-1.02) 01/06/24 15:20 Glucose 115 mg/dL (74-106) H 01/06/24 15:20 POC Glucose 90 mg/dL (74-106) 01/10/24 14:42 COAG PT 19.7 SECONDS (11.7-14.9) H 01/06/24 15:20 Pre-Assessment Diagnosis/Proposed Procedure Planned Operative Procedure(s): Esophagogastroduodenoscopy Anesthesia History 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 When Was Last Pacemaker Check QUESTION #4 FULL TEXT: You/Your Family Experience fever (hyperthermia) with Anesthesia Last Oral Intake Last Oral intake: Last Oral Intake NPO since Meds taken in AM with sips of water? 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 Female HX of Motion Sickness HX of N/V After Surgery Non-Smoker Duration of Surgery greater than 60 minutes Number of Risk Factors PONV Score Height & Weight Height & Weight: Anesthesia: Height & Weight Height 5 ft 1 in 01/10/24 14:45 Weight: 63.957 kg 01/10/24 14:45 Body Mass Index (BMI) 26.6 01/10/24 14:45 Respiratory Assessment Respiratory Assessment - metal polisher and buffer apprentice: Respiratory Tract Infection Hx - metal polisher and buffer apprentice Hx Respiratory Tract Infection No 12/20/23 11:30 STOP Sleep Apnea STOP Sleep Apnea - metal polisher and buffer apprentice: STOP Sleep Apnea - metal polisher and buffer apprentice Hx Hypertension Yes 12/30/23 10:31 Hx Sleep Apnea No 01/07/24 16:50 CPAP BIPAP Do you snore loudly (louder than talking or can be heard Do you often feel tired/ fatigued/ sleepy during daytime? Has anyone observed you stop breathing during sleep? STOP Results QUESTION #5 FULL TEXT : Do you snore loudly (louder than talking or can be heard through closed doors)? 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 Specify any problems Hx of Preganancy in last 3 Months Nurse Filling Out Transfusion & Questions: Date: Time: Patient unable to answer at this time (ie. confused, unrespo /Reproduction History /Reproductive History - metal polisher and buffer apprentice: /Reproductive Hx- metal polisher and buffer apprentice Hx Now Gestational Age (in weeks): EDC: Hx Hx Para Hx Section SAB No 12/20/23 11:30 Active Medications Active Medications: Current Medications Generic Name Dose Route Start Last Admin Trade Name Freq PRN Reason Stop Dose Admin Lactated Ringer's 1,000 mls @ 15 mls/hr 01/10/24 15:00 01/10/24 14:48 IV 15 mls/hr .Q48H GLENNY Administration PFSH Medical History Post-menopausal Anxiety Discoloration of skin Arthritis Uses wheelchair Walker as ambulation aid Anemia Back pain Dietary restriction History of diverticulitis Heartburn Leg cramps History of pain when walking History of edema Wears glasses Wears dentures Diabetes High cholesterol Hypertension Former smoker History of echocardiogram History of stress test Cardiology follow-up encounter History of CHF (congestive heart failure) Home Medications ?Medication ?Instructions ?Recorded ?Last Taken ?Type carvedilol 12.5 mg tablet 12.5 mg PO BID HEART 01/22/23 01/10/24 History clopidogrel 75 mg tablet 75 mg PO DAILY BLOOD THINNER 01/22/23 01/10/24 History lisinopril 5 mg tablet 5 mg PO DAILY BP 01/22/23 01/10/24 History rosuvastatin 20 mg tablet 20 mg PO QHS CHOLESTEROL 01/22/23 12/25/23 History spironolactone 25 mg tablet 25 mg PO DAILY WATER PILL 01/22/23 01/10/24 History glimepiride 2 mg tablet 2 mg PO DAILY DIABETES 01/30/23 01/10/24 History prochlorperazine maleate 5 mg 5 mg PO TID PRN nausea and 12/12/23 Unknown Rx tablet (Compazine) vomiting #14 tabs acetaminophen 500 mg tablet 1,000 mg (2 x 500 mg) PO Q6H PRN 01/09/24 Unknown Rx PRN Pain Score 1-3 #0 tabs calcium carbonate 500 mg (2.5 x 200 mg calcium (500 01/09/24 Unknown Rx mg)) PO Q4H PRN PRN Indigestion #0 tabs metoclopramide HCl 5 mg tablet 5 mg PO ACHS 16 days #64 tabs 01/09/24 Unknown Rx pantoprazole 40 mg tablet,delayed 40 mg PO BID 30 days #60 tabs 01/09/24 01/10/24 Rx release rivaroxaban 20 mg tablet (Xarelto) 20 mg PO DINNER 30 days #30 tabs 01/09/24 Unknown Rx sucralfate 1 gram tablet 1 g PO TIDAC 9 days #27 tabs 01/09/24 01/10/24 Rx tramadol 50 mg tablet 50 mg PO Q6H PRN PRN Pain Score 01/09/24 Unknown Rx 4-10 Or Pre Pt/Ot 7 days #28 tabs Allergy/AdvReac Type Severity Reaction Status Date / Time cilostazol (From Pletal) AdvReac Intermediate irregular Verified 01/07/24 15:06 heart beats/nose bleeds Surgical History Hx of colonoscopy Hx of extremity bypass graft History of angioplasty History of carotid angioplasty History of cholecystectomy (~2010) History of hand surgery History of carpal tunnel surgery History of hysterectomy (~1999) Social History household members: none Smoking Status: Former smoker alcohol intake: never substance use type: does not use Review of Systems (Anesthesia) ROS Narrative System reviewed and no additional complaints, except as documented.
--- NOTE | 2024-01-10 16:00 | HP.PCM_ITS ---
History and Physical Date of Admission: 01/10/24 smooth LARSON a 73 F was sent to the emergency department complaint of a headache that started around 1 PM today. She complained of headache came on suddenly. Patient states pain is on the right side of her head. Patient currently admitted to the transitional care unit. Patient had right iliac stent placement on December 25. She has a history of peripheral artery disease. Patient on Xarelto and her last dose was last evening. Patient denies photophobia. She does complain of a little bit of nausea. She is never had a headache like this before. Patient brought down as a stroke team for concern for possible hemorrhagic stroke. She denies any difficulty speech or vision. She denies difficulty with weakness to the extremities. She was seen by neurology and emergency room physician she was deemed not to be a thrombolytic candidate. This was because it was determined that she was not not having an embolic type stroke. Patient was evaluated by stroke neurologist who was in agreement. Patient was also not a candidate for lumbar puncture. Patient had a CT scan of the brain without contrast that did not show any hemorrhage. She also had CTA of head and neck that showed some chronic stenosis of both carotid arteries. Less than 70%. CBC with differential count of 10.4 with hemoglobin 7.9 and platelet count of 311. Chemistries unremarkable. Patient did receive Reglan 10 mg IV as well as a liter of fluid and 25 mg of Benadryl IV. Headache did improve down to an 8 out of 10. She received 1 dose of morphine. I was asked to see her due to persistent melanotic stools. Along with her hemoglobin dropping down to 7.9 from 9.3. [facility] Medical History (Updated 01/06/24 @ 20:[address] Dunlap Friend, DO) Post-menopausal Anxiety Discoloration of skin Arthritis Uses wheelchair Walker as ambulation aid Anemia Back pain Dietary restriction History of diverticulitis Heartburn Leg cramps History of pain when walking History of edema Wears glasses Wears dentures Diabetes High cholesterol Hypertension Former smoker History of echocardiogram History of stress test Cardiology follow-up encounter History of CHF (congestive heart failure) Home Medications ?Medication ?Instructions ?Recorded ?Last Taken ?Type carvedilol 12.5 mg tablet 12.5 mg PO BID HEART 01/22/23 12/26/23 History clopidogrel 75 mg tablet 75 mg PO DAILY BLOOD THINNER 01/22/23 12/26/23 History lisinopril 5 mg tablet 5 mg PO DAILY BP 01/22/23 12/26/23 History rosuvastatin 20 mg tablet 20 mg PO QHS CHOLESTEROL 01/22/23 12/25/23 History spironolactone 25 mg tablet 25 mg PO DAILY WATER PILL 01/22/23 12/25/23 History glimepiride 2 mg tablet 2 mg PO DAILY DIABETES 01/30/23 12/25/23 History prochlorperazine maleate 5 mg 5 mg PO TID PRN nausea and 12/12/23 Unknown Rx tablet (Compazine) vomiting #14 tabs tramadol 50 mg tablet 50 mg PO Q6H PRN PRN pain 12/20/23 12/25/23 History rivaroxaban 20 mg tablet (Xarelto) 20 mg PO DAILY clot prevention #30 12/27/23 Unknown Rx tabs Allergy/AdvReac Type Severity Reaction Status Date / Time cilostazol (From Pletal) AdvReac Intermediate irregular Verified 12/26/23 05:59 heart beats/nose bleeds Surgical History Hx of colonoscopy Hx of extremity bypass graft History of angioplasty History of carotid angioplasty History of cholecystectomy (~2010) History of hand surgery History of carpal tunnel surgery History of hysterectomy (~1999) Social History (Updated 12/29/23 @ 20:[address] Jamel Matthews MD) household members: none Smoking Status: Former smoker alcohol intake: never substance use type: does not use ROS Constitutional Constitutional: Reports weakness; Denies chills, fever(s) or weight gain ENT HEENT: Reports epistaxis; Denies headache(s), nasal congestion or nasal discharge Cardiovascular Cardiovascular: Reports edema; Denies chest pain or palpitations Respiratory/Chest Respiratory/Chest: Denies cough, excessive phlegm production or shortness of breath with exertion Gastrointestinal Gastrointestinal: Reports abdominal pain and other Details: Right groin pain. ; Denies nausea or vomiting Genitourinary Genitourinary: Denies dysuria Musculoskeletal Musculoskeletal: Denies joint pain or joint swelling Integumentary Integumentary: Denies rash or wounds Neurologic Neurologic: Denies focal weakness, numbness or tingling Psychiatric Psychiatric: Denies anxiety, auditory hallucinations, depression, homicidal ideation or suicidal ideation Physical Exam Const alert, oriented x3 and no apparent distress General Appearance: cooperative HEENT normocephalic, head/scalp atraumatic, hearing grossly normal bilaterally, external ears normal and external nose normal Eyes PERRL and EOMs intact bilaterally General Eye: normal appearance of both eyes Neck General: normal visual inspection and trachea midline Resp normal respiratory effort Effort and Inspection: able to speak in complete sentences; Negative for labored, grunting, stridor or audible wheezes Cardio regular rate and regular rhythm Extremity Extremity Narrative: Multiphasic doppler signals at the R DP and PT. R foot is warm and pink. RLE with 2+ edema R groin incision site with Prevena dressing maintaining good seal. R medial leg incision with dressing C/D/I. Skin Skin Narrative: R lateral foot wound with dry eschar overlying, no surrounding erythema/swelling/drainage. Neuro oriented x3, CN's II-XII intact bilaterally, moves all extremities and no focal motor deficits Speech: speech normal Psych mental status grossly normal, cooperative, affect normal, speech normal and activity/motor behavior normal Lab / Micro Data 01/06/24 12:29 01/06/24 12:29 Labs: Laboratory Results - last 24 hr 01/06/24 06:08: POC Glucose 136 H 01/06/24 12:29: WBC 9.0, RBC 2.71 L, Hgb 8.2 L, Hct 24.9 L, MCV 91.9, MCH 30.3, MCHC 32.9, RDW Std Deviation 50.3 H, RDW Coeff of Pricila 15.5 H, Plt Count 284, MPV 9.1, Immature Gran % (Auto) 0.900, Neut % (Auto) 75.6 H, Lymph % (Auto) 13.1 L, [place] % (Auto) 9.4, Eos % (Auto) 0.8, Baso % (Auto) 0.2, Absolute Neuts (auto) 6.8, Absolute Lymphs (auto) 1.18, Nucleated RBC % 0.3, Sodium 131 L, Potassium 4.0, Chloride 101, Carbon Dioxide 25.0, Anion Gap 5, BUN 23 H, Creatinine 0.93, Estim Creat Clear Calc 44.85, Est GFR (MDRD) Af Amer 75, Est GFR (MDRD) Non-Af 62, BUN/Creatinine Ratio 24.7 H, Glucose 136 H, Calcium 9.1 01/06/24 15:03: POC Glucose 116 H Micro: Microbiology 01/06/24 13:10 Stool Stool Occult Blood (DAVID) - Final Occult Blood Positive Assessment & Plan Assessment/Plan (1) Blood in stool: (2) Abdominal pain: (3) Anemia: PLAN: Plan 73-year-old with history of diabetes, hyperlipidemia, peripheral artery disease status post intervention and on Xarelto therapy who developed melanotic stool. Differential diagnosis does include peptic ulcer disease in the stomach or the small bowel. Also patient is high risk for angiodysplastic lesions secondary to PAD. She should undergo an upper endoscopy evaluate upper GI tract. She was explained alternatives, risk, benefits including not withstanding bleeding, infection, sepsis, perforation, need for emergent urgent . She will have an ASA of 3.I have examined the patient and the H&P has been reviewed. There are no clinical changes since date of exam.
--- NOTE | 2024-01-10 17:03 | OP.CCLET_ITS ---
01/10/2024 Ge Montero Re : Upper GI endoscopy procedure for Liliana Montero This procedure was performed on Wednesday, January 10, 2024. My impressions and recommendations are as follows: Impressions : - Normal esophagus. - Oozing gastric ulcer with pigmented material. Treated with a heater probe. - Oozing duodenal ulcers with adherent clot. Treated with a heater probe. - No specimens collected. Recommendations : - Return patient to referring hospital for ongoing care. - Resume previous diet. - Use Prilosec (omeprazole) 40 mg PO BID for 12 weeks. - Use sucralfate tablets 1 gram PO QID for 4 weeks. - Continue present medications. My findings are described in the full procedure note, which is enclosed. If I can be of further assistance, please feel free to contact me at . Sincerely, Germán Giron, 01/10/2024 5:02:48 PM This report has been signed electronically.
--- NOTE | 2024-01-10 17:03 | OP.EGD_ITS ---
Patient Name: Liliana Garnett Procedure Date: 01/10/2024 4:27 PM Date of : 1950 Age: 73 Procedure: Upper GI endoscopy Indications: Melena Providers: Germán Giron DO Medicines: Monitored Anesthesia Care Patient Profile: This is a 73 year old female. Refer to note in patient chart for documentation of history and physical. Patient has symptoms of acute epigastric abdominal pain. Complications: No immediate complications. Procedure: Pre-Anesthesia Assessment: - Prior to the procedure, a History and Physical was performed, and patient medications and allergies were reviewed. The patient is competent. The risks and benefits of the procedure and the sedation options and risks were discussed with the patient. All questions were answered and informed consent was obtained. Patient identification and proposed procedure were verified by the physician in the pre-procedure area. Mental Status Examination: alert and oriented. Airway Examination: normal oropharyngeal airway and neck mobility. Respiratory Examination: clear to auscultation. CV Examination: normal. Prophylactic Antibiotics: The patient does not require prophylactic antibiotics. Prior Anticoagulants: The patient has taken Xarelto (rivaroxaban), last dose was day of procedure. ASA Grade Assessment: III - A patient with severe systemic disease. After reviewing the risks and benefits, the patient was deemed in satisfactory condition to undergo the procedure. The anesthesia plan was to use monitored anesthesia care (MAC). Immediately prior to administration of medications, the patient was re-assessed for adequacy to receive sedatives. The heart rate, respiratory rate, oxygen saturations, blood pressure, adequacy of pulmonary ventilation, and response to care were monitored throughout the procedure. The physical status of the patient was re-assessed after the procedure. After obtaining informed consent, the endoscope was passed under direct vision. Throughout the procedure, the patient's blood pressure, pulse, and oxygen saturations were monitored continuously. The Colonoscope was introduced through the mouth, and advanced to the fourth part of the duodenum. Small bowel enteroscopy was deemed necessary. The upper GI endoscopy was accomplished without difficulty. The patient tolerated the procedure well. Scope In: 4:44:14 PM Scope Out: 4:53:57 PM Total Procedure Duration Time 0 hours 9 minutes 43 seconds Findings: The examined esophagus was normal. One oozing cratered gastric ulcer with pigmented material was found in the gastric body. The lesion was 6 mm in largest dimension. Coagulation for hemostasis using heater probe was successful. Estimated blood loss was minimal. Many oozing linear duodenal ulcers with adherent clot were found in the duodenal bulb, in the second portion of the duodenum, in the third portion of the duodenum and in the fourth portion of the duodenum. The largest lesion was 4 mm in largest dimension. Coagulation for hemostasis using heater probe was successful. Estimated blood loss was minimal. Impression: - Normal esophagus. - Oozing gastric ulcer with pigmented material. Treated with a heater probe. - Oozing duodenal ulcers with adherent clot. Treated with a heater probe. - No specimens collected. Recommendation: - Return patient to referring hospital for ongoing care. - Resume previous diet. - Use Prilosec (omeprazole) 40 mg PO BID for 12 weeks. - Use sucralfate tablets 1 gram PO QID for 4 weeks. - Continue present medications. Procedure Code(s): --- Professional --- 66753, Small intestinal endoscopy, enteroscopy beyond second portion of duodenum, not including ileum; with control of bleeding (eg, injection, bipolar cautery, unipolar cautery, laser, heater probe, stapler, plasma dish maker) CPT copyright 2021 [employer]. All rights reserved. The codes documented in this report are preliminary and upon health information coder review may be revised to meet current compliance requirements. Germán Giron DO 01/10/2024 5:02:48 PM This report has been signed electronically. Number of Addenda: 0 Note Initiated On: 01/10/2024 4:27 PM
--- NOTE | 2024-01-10 17:08 | PCM.POST.ANE ---
Anesthesia: Postop Eval I Current Vital Signs Temperature: 98.5 F Pulse Rate: 104 Blood Pressure: 100/37 Respiratory Rate: 16 Pulse Ox: 95 Oxygen Delivery Method: Nasal Cannula Oxygen Flow Rate (L/min): 4 Assessment Airway patent: Yes Spontaneous unlabored respirations: Yes Mental status: Asleep nausea: No Vomiting: No Anesthesia Complication: No Fluid Hydration Crystalloid volume administer (ml): 300 Total IV fluid infused: 300 Progress Note Anesthesia document: Postop Eval 1 completed: Yes
--- NOTE | 2024-01-10 17:10 | PCM.POSTANE2 ---
Anesthesia Postop Eval I Sum Postop Eval Completion status Anesthesia document: Postop Eval 1 completed: Yes Anesthesia Postop Eval I Summary Anesthesia Postop Eval I Summary: Anesthesia Postop Eval I: Assessment Summary Airway patent Yes 01/10/24 17:08 GATITO Spontaneous unlabored Yes 01/10/24 17:08 GATITO respirations Mental status Asleep 01/10/24 17:08 GATITO nausea No 01/10/24 17:08 GATITO Vomiting No 01/10/24 17:08 GATITO Anesthesia Postop Eval I: Fluid Summary Crystalloid volume administer 300 01/10/24 17:08 GATITO (ml) Colloids volume administered ( ml) Blood Product volume administered (ml) Total IV fluid infused 300 01/10/24 17:08 GATITO Anesthesia Postop Eval I: Summary Notes Anesthesia Complication No 01/10/24 17:08 GATITO Anesthesia Complication Comment: Post-operative progress note Anesthesia: Postop Eval II Evaluation Mental status: Awake Pain Level: 0 nausea: No Vomiting: No
--- NOTE | 2024-01-10 17:31 | SUR.PHASEII ---
report called to Les on TCU, he requested That IV be left in because pt is a hard stick. IV locked and left in for TCU convenience.
== END 2024-01-10 23:59 ==
LOC: EN 06-04 14:32
PROVIDERS: PCP Family Medicine; Referring Provider Family Medicine; Visit Provider Internal Medicine Gastroenterology
PROC: 0DJ08ZZ Inspection of Upper Intestinal Tract, Via Natural or Artificial Opening Endoscopic (ICD-10-PCS; CPT 43235; principal; 2024-01-10 13:10)
DX: K26.9 Duodenal ulcer, unspecified as acute or chronic, without hemorrhage or perforation (principal); E11.9 Type 2 diabetes mellitus without complications; K25.9 Gastric ulcer, unspecified as acute or chronic, without hemorrhage or perforation; I10 Essential (primary) hypertension; E78.00 Pure hypercholesterolemia, unspecified; I73.9 Peripheral vascular disease, unspecified; F41.9 Anxiety disorder, unspecified; D64.9 Anemia, unspecified; M19.90 Unspecified osteoarthritis, unspecified site; Z79.899 Other long term (current) drug therapy; Z79.01 Long term (current) use of anticoagulants; Z87.891 Personal history of nicotine dependence; Z79.891 Long term (current) use of opiate analgesic; Z79.84 Long term (current) use of oral hypoglycemic drugs
CPT/HCPCS: 44366; 82962; J7120

== ENCOUNTER 2024-01-11 08:33 | Outpatient (CLI) | payer MEDICARE, OTHER, SELFPAY ==
[2024-01-11] VITALS (11 sets, daily range): BP systolic 97–113; BP diastolic 33–50; PULSE 91–104; RESP 16–20; TEMP 36.7–36.8; O2SAT 95–100; BMI 26.6
[2024-01-11] MEDS: Furosemide 20 MG/2 ML VIAL IV (11:12)
== END 2024-01-11 13:26 | disposition home or self-care (01) ==
LOC: MEDOUTP 08:34 → PCU 08:34
PROVIDERS: PCP Family Medicine; Referring Provider Family Medicine Geriatric Medicine; Visit Provider Family Medicine Geriatric Medicine
DX: D62 Acute posthemorrhagic anemia (principal)
CPT/HCPCS: 36430; 86850; 86900; 86901; 86920; 86922; P9016; J1940

== ENCOUNTER → 2024-02-21 | Outpatient (CLI) | payer MEDICARE, OTHER, SELFPAY ==
--- NOTE | 2024-02-21 08:49 | CDU_ITS ---
Reason For Study: Carotid Artery Stenosis Rt. Velocities/BP Lt. Velocities/BP Prox CCA 127/12 cm/sec. Prox CCA 71/10 cm/sec. Mid CCA 105/14 cm/sec. Mid CCA 61/16 cm/sec. Dist CCA 87/16 cm/sec. Dist CCA 124/27 cm/sec. Prox ICA 78/18 cm/sec. Prox ICA 99/25 cm/sec. Mid ICA 78/22 cm/sec. Mid ICA 113/30 cm/sec. Dist ICA 148/28 cm/sec. Dist ICA 92/24 cm/sec. Rt. ICA/CCA = 1.4. Lt. ICA/CCA = 1.9. Prox ECA 137/4 cm/sec. Prox ECA 46/5 cm/sec. Rt. Vert. 31/9 cm/sec. Lt. Vert. 83/13 cm/sec. Right Extracranial There is heterogeneous, irregular atherosclerotic plaque noted in the right common carotid artery. There is heterogeneous, irregular atherosclerotic plaque noted in the right internal carotid artery. There is heterogeneous, irregular atherosclerotic plaque noted in the right external carotid artery. Antegrade flow is noted in the right vertebral artery. Left Extracranial There is heterogeneous, irregular atherosclerotic plaque noted in the left common carotid artery. There is intimal thickening but no significant atherosclerotic plaque noted in the left internal carotid artery. There is intimal thickening but no significant atherosclerotic plaque noted in the left external carotid artery. Antegrade flow is noted in the left vertebral artery. Procedure Carotid Duplex [id number]. This is a Carotid Duplex examination using B-mode, color flow and specral Doppler. Exam performed in department. VL/Carotid Duplex Ultrasound Interpretation Summary Moderate (50-69%) stenosis right extracranial internal carotid. Normal left extracranial internal carotid. Patent and antegrade vertebrals bilaterally. Ordering Physician: Suzan Fernandez Referring Physician: Ge Montero Performed By: Angelica Bryant, MUNA, RVT
== END | disposition home or self-care (01) ==
LOC: CVS 08:46
PROVIDERS: PCP Family Medicine; Referring Provider Physician Assistant; Visit Provider Physician Assistant
DX: I65.22 Occlusion and stenosis of left carotid artery (principal)
CPT/HCPCS: 93880

== ENCOUNTER → 2024-03-05 | Outpatient (CLI) | payer MEDICARE, OTHER, SELFPAY ==
--- NOTE | 2024-03-05 07:55 | ADU_ITS ---
Reason For Study: S/P Rt Fem- Pop BPG Right Velocities Left Velocities Ext. Iliac Artery, dist = 155.4 cm./sec. Ext Iliac Artery, dist = 179.8 cm./sec. Common Femoral Artery, mid = 262.5 cm./sec. Common Femoral Artery, mid = 252.3 cm./sec. Supf Femoral Artery, prox = 0.0 cm./sec. Supf. Femoral Artery, prox = 0.0 cm./sec. Stent noted in Dist EIA SFA appears occluded SFA appears occluded Fem - Pop BPG noted Fem - Pop BPG Noted BPG Prox Anas - 258.6 cm/s Prox Anas - 192.7 cm/s Prox Graft - 53.9 cm/s Prox Graft - 108.6 cm/s Mid Graft - 50.2 cm/s Mid Graft - 81.5 cm/s Dist Graft - 55.1 cm/s Dist Graft - 54.1 cm/s Dist Anas - 65.6 cm/s. Dist Anas - 72.3 cm/s. Profunda Femoral Artery = 170.9 cm./sec. Profunda Femoral Artery = 96.1 cm./sec. Popliteal Artery, distal = 45.9 cm./sec. Post. Tibial Artery, prox = 57.8 cm./sec. Post. Tibial Artery, prox = 65.6 cm./sec. Post. Tibial Artery, mid = 93.0 cm./sec. Post Tibial Artery, mid = 76.6 cm./sec. Post. Tibial Artery, dist = 51.2 cm./sec. Post Tibial Artery, dist. = 54.7 cm./sec. Peroneal Artery, prox = 57.8 cm./sec. Peroneal Artery, prox = 45.9 cm./sec. Peroneal Artery, mid = 60.0 cm./sec. Peroneal Artery, mid = 32.9 cm./sec. Peroneal Artery,dist = 38.0 cm./sec. Peroneal Artery,dist. = 26.3 cm./sec. Ant. Tibial Artery, prox = 133.0 cm./sec. Ant.Tibial Artery, prox = 49.3 cm./sec. Ant. Tibial Artery, mid = 80.3 cm./sec. Ant Tibial Artery, mid = 29.6 cm./sec. Ant. Tibial Artery, dist = 69.4 cm./sec. Ant. Tibial Artery, distal = 47.2 cm./sec. Procedure BLE Arterial Duplex w/ B-Mode - Color and Pulsed Wave Doppler. The exam was diagnostic. Exam performed in department. VL/US Art Duplex Bilat Lower Ext Interpretation Summary Patent right femoral-popliteal bypass with normal velocities and no evidence of stenosis. Patent left femoral-popliteal bypass with normal velocities and no evidence of stenosis. Ordering Physician: Suzan Fernandez Referring Physician: Ge Montero MD Performed By: Khari Graham RVT
--- NOTE | 2024-03-05 07:55 | ART_ITS ---
Reason For Study: S/P Rt Fem- Pop BPG Procedure A bilateral lower extremity continuous wave Doppler with analog waveform analysis and ankle brachial indexes. Left Segmental Pressures Left brachial= 132mmHg. Left posterior tibial artery = 118mmHg. Left dorsalis pedis artery = 127mmHg. Left digit = 66 mmHg. The left posterior tibial artery waveforms are triphasic. The left dorsalis pedis waveforms are triphasic. Right Segmental Pressures Right brachial= 132mmHg. Right posterior tibial artery = 126mmHg. Right dorsalis pedis artery = 120mmHg. Right digit = 72 mmHg. The right posterior tibial artery waveforms are biphasic. The right dorsalis pedis waveforms are biphasic. Indices The right ankle brachial index by the posterior tibial artery is 0.95. The right ankle brachial index by the dorsalis pedis is 0.91. The right digital-brachial index is 0.55. The left ankle brachial index by the posterior tibial artery is 0.89. The left ankle brachial index by the dorsalis pedis is 0.96. The left digital-brachial index is 0.50. VL/Ankle Brachial Index Interpretation Summary Right LAST 0.95, mild arterial insufficiency. Doppler/PVR waveforms of the right leg mildly diminished at rest. Left LAST 0.96, mild arterial insufficiency. Doppler/PVR waveforms of the left l eg normal at rest. Ordering Physician: Suzan Fernandez Referring Physician: Ge Montero MD Performed By: Khari Graham RVT
== END | disposition home or self-care (01) ==
LOC: CVS 07:54
PROVIDERS: PCP Family Medicine; Referring Provider Physician Assistant; Visit Provider Physician Assistant
DX: Z48.812 Encounter for surgical aftercare following surgery on the circulatory system (principal); I70.234 Atherosclerosis of native arteries of right leg with ulceration of heel and midfoot; I70.212 Atherosclerosis of native arteries of extremities with intermittent claudication, left leg
CPT/HCPCS: 93922; 93925

== ENCOUNTER → 2024-08-03 | Outpatient (CLI) | payer MEDICARE, SELFPAY ==
--- NOTE | 2024-08-03 09:48 | ADUL_ITS ---
Reason For Study: HX RLE BPG Right Velocities Ext. Iliac Artery, dist = 222.6/7.5 cm./sec. Common Femoral Artery, prox = 88.7 cm./sec. Rt Fem - Pop A BPG Noted. PSV of 247.6 cm/sec visualized at Prox anastomosis. Unable to visualize flow throughout rest of BPG. Unable to visualize flow throughout SFA. Collateral branch vessel noted at posterior region of distal thigh that appears to connect with POP A. Profunda Femoral Artery = 144.0 cm./sec. Popliteal Artery, prox. = 74.2 cm./sec. Popliteal Artery, mid = 72.3 cm./sec. Popliteal Artery, dist = 27.6 cm./sec. Post. Tibial Artery, prox = 76.9 cm./sec. Unable to visualize flow at mid and distal CURRICULUM DEVELOPMENT MANAGER. Peroneal Artery, prox = 20.4 cm./sec. Peroneal Artery, mid = 20.4 cm./sec. Peroneal Artery,dist = 21.8 cm./sec. Ant. Tibial Artery, prox = 39.6 cm./sec. Ant. Tibial Artery, mid = 22.5 cm./sec. Ant. Tibial Artery, dist = 12.5 cm./sec. VL/US Art Duplex Unilat Lower Ext Interpretation Summary Right femoral-popliteal bypass occluded. [place] superficial femoral artery, mid/distal posterior tibial arteries occlude d. Ordering Physician: Suzan Fernandez Referring Physician: Efraín Archer Performed By: Khari Graham RVT
--- NOTE | 2024-08-03 09:48 | ART_ITS ---
Reason For Study: HX RLE BPG Procedure A bilateral lower extremity continuous wave Doppler with analog waveform analysis and ankle brachial indexes. Left Segmental Pressures Left brachial= 147mmHg. Left posterior tibial artery = 150mmHg. Left dorsalis pedis artery = 142mmHg. Left digit = 82 mmHg. The left posterior tibial artery waveforms are triphasic. The left dorsalis pedis waveforms are triphasic. Right Segmental Pressures Right brachial= 148mmHg. Right posterior tibial artery = 74mmHg. Right dorsalis pedis artery = 80mmHg. Right digit = 34 mmHg. The right posterior tibial artery waveforms are monophasic. The right dorsalis pedis waveforms are monophasic. Indices The right ankle brachial index by the posterior tibial artery is 0.50. The right ankle brachial index by the dorsalis pedis is 0.54. The right digital-brachial index is 0.23. The left ankle brachial index by the posterior tibial artery is 1.01. The left ankle brachial index by the dorsalis pedis is 0.96. The left digital-brachial index is 0.55. VL/Ankle Brachial Index Interpretation Summary Right LAST 0.54, moderate arterial insufficiency. Doppler/PVR waveforms of the r ight ankle moderately diminished at rest. Left LAST 1.01, normal. Doppler/PVR waveforms of the left ankle normal at rest. TBI diminished, pedal/digit disease vs spasm. Ordering Physician: Suzan Fernandez Referring Physician: Efraín Archer Performed By: Khari Graham, RVT
== END | disposition home or self-care (01) ==
PROVIDERS: PCP Family Medicine; Referring Provider Physician Assistant; Visit Provider Physician Assistant
DX: Z48.812 Encounter for surgical aftercare following surgery on the circulatory system (principal); Z73.9 Problem related to life management difficulty, unspecified
CPT/HCPCS: 93922; 93926

== ENCOUNTER 2024-09-04 14:31 | Outpatient (CLI) | payer MEDICARE, SELFPAY ==
--- NOTE | 2024-09-04 14:33 | CT_ITS ---
PROCEDURE: CTA ABD W/RUNOFF W/WO CONTRAST REASON FOR EXAM: Status post right external iliac artery stent, fem endarterectomy, fem-pop bypass TECHNIQUE: CTA imaging of the abdomen, pelvis, and lower extremities with intravenous contrast. 3D reconstructions. IV CONTRAST: COMPARISON: None. FINDINGS: Aorta: Mild mixed calcified and soft plaque identified. No abdominal aortic aneurysm. Celiac: Mild atherosclerotic disease at the ostium, yet remains patent SMA: Mild mixed calcified and soft plaque identified. Remains patent QUINN : Mild mixed calcified and soft plaque identified. Remains patent Right Renal: Mild mixed calcified and soft plaque identified. Remains patent Left Renal: Mild mixed calcified and soft plaque identified. Remains patent RIGHT Iliac Arteries: Common Iliac: Stent patent External Iliac: Stent patent Internal Iliac: Moderate mixed calcified and soft plaque identified. No high grade stenosis. LEFT Iliac Arteries: Common Iliac: Mild mixed calcified and soft plaque identified. External Iliac: Mild mixed calcified and soft plaque identified. Internal Iliac: Moderate mixed calcified and soft plaque identified. No high grade stenosis. RIGHT Lower Extremity: Common Femoral: Normal. Superficial Femoral: Occluded stent. Deep Femoral: Mild mixed calcified and soft plaque identified. Popliteal: Occluded. Anterior Tibial: Mild mixed calcified and soft plaque identified. Tibioperoneal Trunk: Mild mixed calcified and soft plaque identified. Posterior Tibial: Mild mixed calcified and soft plaque identified. Peroneal: Mild mixed calcified and soft plaque identified. Dorsalis Pedis: Opacified LEFT Lower Extremity: Common Femoral: Normal. Superficial Femoral: Mild mixed calcified and soft plaque identified. Deep Femoral: Mild mixed calcified and soft plaque identified. Popliteal: Moderate mixed calcified and soft plaque identified. High-grade stenosis noted in P3 segment. Anterior Tibial: Mild mixed calcified and soft plaque identified. Tibioperoneal Trunk: Mild mixed calcified and soft plaque identified. Posterior Tibial: Mild mixed calcified and soft plaque identified. Peroneal: Mild mixed calcified and soft plaque identified. Dorsalis Pedis: Opacified Other Stents/Grafts: Right common iliac and right external iliac stents are patent. Right SFA stent is occluded. Other Findings: The visualized abdominal and pelvic viscera are unremarkable. No ascites or lymphadenopathy. Bone windows are unremarkable. CT/CTA Abd w/Runoff W/WO Contrast IMPRESSION: 1. Patent right common iliac and external iliac artery stents 2. Occluded right superficial femoral artery stent 3. Three-vessel bilateral runoff One or more dose reduction techniques were used (e.g., Automated exposure contr ol, adjustment of the mA and/or kV according to patient size, use of iterative reconstruction technique). Reading Location: [facility]
[2024-09-04 15:03] LABS: CREATININE FINGERSTICK 1.1 mg/dL (0.55-1.02)
== END 2024-09-04 23:59 | disposition home or self-care (01) ==
LOC: CT 14:32
PROVIDERS: PCP Family Medicine; Referring Provider Physician Assistant; Visit Provider Physician Assistant
DX: Z48.812 Encounter for surgical aftercare following surgery on the circulatory system (principal); I73.9 Peripheral vascular disease, unspecified; I70.0 Atherosclerosis of aorta
CPT/HCPCS: 75635; Q9967

== ENCOUNTER 2024-09-23 06:51 | Day surgery (SDC) | payer MEDICARE, SELFPAY ==
[2024-09-22 07:50] VITALS: BMI 26.4
[2024-09-23 07:43] LABS: Hematocrit 35.3 % (37-47); Hemoglobin 11.6 g/dL (12.0-15.0); Mean Corp Hgb Conc 32.9 g/dL (32-36); Mean Corpuscular Hgb 30.3 pg (27.0-32.0); Mean Corpuscular Volume 92.2 fL (81-99); Platelet Count 214 K/mm3 (150-450); RBC Distribution Width CV 14.7 % (11.6-14.6); RBC Distribution Width SD 48.8 fl (35.1-43.9); Red Blood Count 3.83 M/mm3 (4.2-5.4); White Blood Count 5.1 K/mm3 (4.4-11.0)
[2024-09-23 08:03] LABS: Anion Gap 12 (5-15); BUN 24 mg/dL (4-19); BUN/Creat Ratio 24.8 RATIO (10-20); Calcium,Total 9.8 mg/dL (7.6-11.0); Carbon Dioxide 20.7 mmol/L (21.0-32.0); Chloride 104 mmol/L (98-108); Creatinine, Serum 0.97 mg/dL (0.70-1.20); EST Glomerular Filtration Rate 61 (>60); Estimated Creatinine Clearance 42.78 ml/min (50-250); Glucose 164 mg/dL (70-99); Potassium 4.3 mmol/L (3.3-5.1); Sodium Level 137 mmol/L (133-145)
--- NOTE | 2024-09-23 08:07 | PCM.HP.STD ---
HPI - General HPI Narrative ESTEFANIA COWAN, is a 73 F who presents with stenosis of prior right iliac stent. She has undergone multiple prior bilateral lower extremity revascularizations. Most recent in December 2023 redo right femoral endarterectomy, external iliac stent, fem-BK popliteal bypass with cadaver, sartorius flap. Her foot wounds have healed, she has no rest pain or claudication. Her cadaver bypass occluded without symptoms. External iliac found to have two focal areas of stenosis. [facility] Medical History Post-menopausal Anxiety Discoloration of skin Arthritis Uses wheelchair Walker as ambulation aid Anemia Back pain Dietary restriction History of diverticulitis Heartburn Leg cramps History of pain when walking History of edema Wears glasses Wears dentures Diabetes High cholesterol Hypertension Former smoker History of echocardiogram History of stress test Cardiology follow-up encounter History of CHF (congestive heart failure) Home Medications ?Medication ?Instructions ?Recorded ?Last Taken ?Type carvedilol 12.5 mg tablet 12.5 mg PO BID HEART 01/22/23 01/10/24 History clopidogrel 75 mg tablet 75 mg PO DAILY BLOOD THINNER 01/22/23 01/10/24 History lisinopril 5 mg tablet 5 mg PO DAILY BP 01/22/23 01/10/24 History rosuvastatin 20 mg tablet 20 mg PO QHS CHOLESTEROL 01/22/23 12/25/23 History spironolactone 25 mg tablet 25 mg PO DAILY WATER PILL 01/22/23 01/10/24 History glimepiride 2 mg tablet 2 mg PO DAILY DIABETES 01/30/23 01/10/24 History acetaminophen 500 mg tablet 1,000 mg (2 x 500 mg) PO Q6H PRN 01/09/24 Unknown Rx PRN Pain Score 1-3 #0 tabs calcium carbonate 500 mg (2.5 x 200 mg calcium (500 01/09/24 Unknown Rx mg)) PO Q4H PRN PRN Indigestion #0 tabs metoclopramide HCl 5 mg tablet 5 mg PO ACHS 16 days #64 tabs 01/09/24 Unknown Rx pantoprazole 40 mg tablet,delayed 40 mg PO BID 30 days #60 tabs 01/09/24 01/10/24 Rx release Allergy/AdvReac Type Severity Reaction Status Date / Time cilostazol (From Pletal) AdvReac Intermediate irregular Verified 08/12/24 10:13 heart beats/nose bleeds Surgical History S/P insertion of iliac artery stent (~2023) Hx of colonoscopy Hx of extremity bypass graft History of angioplasty History of carotid angioplasty History of cholecystectomy (~2010) History of hand surgery History of carpal tunnel surgery History of hysterectomy (~1999) Social History household members: none Smoking Status: Former smoker Tobacco: How many years used: 25 alcohol intake: never substance use type: does not use ROS Constitutional Constitutional: Denies chills, fever(s), frequent falls, lethargy or weakness Eyes Eyes: Denies blind spots, change in vision or loss of vision ENT HEENT: Denies bleeding gums, hoarseness or sore throat Cardiovascular Cardiovascular: Denies abdominal pain, bluish discoloration of hand/feet, chest pain with activity, claudication, cold extremities, cyanosis, dyspnea on exertion, erythema on extremities, irregular heart rhythm, leg edema, leg ulcers, numbness in extremities or weakness in extremities Respiratory/Chest Respiratory/Chest: Denies cough, excessive phlegm production, shortness of breath at rest, shortness of breath with exertion or wheezing Gastrointestinal Gastrointestinal: Denies anorexia, change in stool character, constipation, diarrhea, melena or rectal bleeding Genitourinary Genitourinary: Denies dysuria or hematuria Musculoskeletal Musculoskeletal: Denies abnormal gait Integumentary Integumentary: Reports other Details: ; Denies erythema, non-healing lesions or wounds Neurologic Neurologic: Denies abnormal speech, focal weakness, headache(s), loss of vision, numbness, paresthesias or sensory deficit Hematologic/Lymphatic Hematologic/Lymphatic: Denies easy bleeding, easy bruising or lymphadenopathy Vital Signs Vital Signs Vital Signs: Weight Weight: 140 lb Body Mass Index (BMI) 26.4 Physical Exam Const alert, oriented x3, no apparent distress and healthy appearing General Appearance: cooperative; Negative for combative or lethargic Orientation / Consciousness: awake Exam Limitations: no limitations HEENT Head and Scalp: normocephalic and atraumatic Eyes EOMs intact bilaterally General Eye: normal appearance of both eyes Neck full ROM General: trachea midline Resp normal respiratory effort and no use of accessory muscles Effort and Inspection: Negative for labored, stridor or audible wheezes Cardio regular rate and regular rhythm Peripheral Pulses: femoral pulses present Back/Spine Cervical Spine: cervical ROM normal Extremity full ROM, normal capillary refill and no clubbing, cyanosis or edema Skin no rashes or lesions noted and no wounds Neuro oriented x3, CN's II-XII intact bilaterally, no focal motor deficits and no sensory deficits noted Psych thought process normal, cooperative, affect normal, speech normal and activity/motor behavior normal Results Lab / Micro Data 09/23/24 06:56 09/23/24 06:56 Labs: Laboratory Results - last 24 hr 09/23/24 06:56: WBC 5.1, RBC 3.83 L, Hgb 11.6 L, Hct 35.3 L, MCV 92.2, MCH 30.3, MCHC 32.9, RDW Std Deviation 48.8 H, RDW Coeff of Pricila 14.7 H, Plt Count 214, MPV 10.0, Sodium 137, Potassium 4.3, Chloride 104, Carbon Dioxide 20.7 L, Anion Gap 12, BUN 24 H, Creatinine 0.97, Estim Creat Clear Calc 42.78 L, Est GFR (MDRD) Non-Af 61, BUN/Creatinine Ratio 24.8 H, Glucose 164 H, Calcium 9.8 Assessment & Plan Assessment/Plan (1) PAD (peripheral artery disease): PLAN: -angio possible intervention
--- NOTE | 2024-09-23 15:04 | OP.PCM_ITS ---
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 She most recently had undergone right femoral endarterectomy, external iliac stent, femoral-popliteal bypass with cadaver in 2023. This revascularization was performed secondary to foot wounds that had ultimately healed successfully. Recent screening duplex revealed that the cadaver bypass had failed though this was asymptomatic when it occurred but it also revealed external iliac artery stenosis. She presents now for angiogram to treat her in-stent stenosis. Description of procedure: Upon obtaining form consent and verification correct patient procedure site patient was taken to the cath where she was positioned prepped and draped in you sterile fashion. Time was performed and conscious sedation administered Versed and fentanyl. Skin overlying the right common femoral artery was anesthetized 1% lidocaine and ultrasound guidance was accessed with a micropuncture needle wire. This was then exchanged for micropuncture sheath through which hand-injection iliofemoral angiogram was performed revealing satisfactory positioning with no extravasation or dissection. Through the micropuncture sheath a glide advantage wire was advanced and the micropuncture sheath exchanged for a 6 [place] dilator followed by a 5 [place] sheath which was advanced into the distal external iliac artery. Omni Flush catheter was then advanced into the abdominal aorta and digital traction aortogram pelvic angiogram performed. This confirmed 2 focal areas of stenosis in the external iliac stent, 1 at the distal aspect just above the inguinal ligament and 1 proximally just below the internal iliac origin. Patient was in heparinized allowed to circulate for 3 minutes and through the Omni Flush catheter and 018 wire was advanced and the catheter withdrawn. Intravascular ultrasound probe was then advanced and recorded pullback performed of the aorta, right common iliac artery, right external iliac artery. This confirmed position within the lumen of the stents and confirmed severity of stenosis to be greater than 75% in both locations. A Lozano angio sculpt angioplasty balloon was then advanced and inflated to nominal for multiple inflations at each of the areas of stenosis. The balloon was then withdrawn and the superior lesion was treated with a Downstreams 5 x 40 paclitaxel coated angioplasty balloon. This was then withdrawn and the distal lesion treated with a [place] [employer] 5 x 40 paclitaxel coated angioplasty balloon. C ompletion angiography revealed satisfactory resolution of the stenosis with no extravasation or dissection. Given the amount of scar tissue at the puncture site no closure device was deployed so heparin was reversed with protamine and the sheath withdrawn followed by 15 minutes of manual pressure. Once satisfactory hemostasis was obtained the patient was taken to the recovery area with plan discharged home after bedrest. Surgical Findings: See above Complications Complications: No
== END 2024-09-23 13:50 | disposition home or self-care (01) ==
PROVIDERS: PCP Family Medicine; Referring Provider Surgery Trauma Surgery; Visit Provider Surgery Trauma Surgery
DX: T82.856A Stenosis of peripheral vascular stent, initial encounter (principal); E11.51 Type 2 diabetes mellitus with diabetic peripheral angiopathy without gangrene; I10 Essential (primary) hypertension; X58.XXXA Exposure to other specified factors, initial encounter; E78.00 Pure hypercholesterolemia, unspecified; Z79.02 Long term (current) use of antithrombotics/antiplatelets; Z79.84 Long term (current) use of oral hypoglycemic drugs; Z79.899 Other long term (current) drug therapy; Z87.891 Personal history of nicotine dependence
CPT/HCPCS: 36200; 36415; 37220; 37252; 37253; 75625; 76937; 80048; 85027; 99152; 99153; C1725; C1753; C1769; C1894; C2623; Q9967

== ENCOUNTER → 2024-10-26 | Outpatient (CLI) | payer MEDICARE, SELFPAY ==
--- NOTE | 2024-10-26 12:51 | ADUL_ITS ---
Reason For Study Reason For Study: s/p Rt EIA stent/angioplasty Right Velocities Ext. Iliac Artery, dist = 154 cm./sec. Common Femoral Artery, mid = 209 cm./sec. Rt Fem - Pop A BPG Noted Unable to visualize flow throughout BPG. Supf Femoral Artery, dist. = 62 cm./sec. Profunda Femoral Artery = 124 cm./sec. Popliteal Artery, mid = 83 cm./sec. Post. Tibial Artery, prox = 37 cm./sec. Post. Tibial Artery, mid = 29 cm./sec. Post. Tibial Artery, dist = 19 cm./sec. Peroneal Artery, prox = 47 cm./sec. Peroneal Artery, mid = 25 cm./sec. Peroneal Artery,dist = 20 cm./sec. Ant. Tibial Artery, prox = 47 cm./sec. Ant. Tibial Artery, mid = 28 cm./sec. Ant. Tibial Artery, dist = 25 cm./sec. /US Art Duplex Unilat Lower Ext Interpretation Summary Patent right external iliac, common femoral arteries with normal velocities/wav eforms and no stenosis. Known occlusion of prior femoral-popliteal bypass and [place] SFA. Ordering Physician: Suzan Fernandez Referring Physician: Efraín Archer Performed By: Angelica Bryant, MUNA, RVT
--- NOTE | 2024-10-26 12:51 | ART_ITS ---
Reason For Study Reason For Study: s/p Rt EIA stent/angioplasty Procedure A bilateral lower extremity continuous wave Doppler with analog waveform analysis and ankle brachial indexes. Prelim given to Rand. Left Segmental Pressures Left brachial= 122mmHg. Left posterior tibial artery = 116mmHg. Left dorsalis pedis artery = 99mmHg. Left digit = 64 mmHg. Right Segmental Pressures Right brachial= 110mmHg. Right posterior tibial artery = 53mmHg. Right dorsalis pedis artery = 54mmHg. Indices The right ankle brachial index by the posterior tibial artery is 0.43. The right ankle brachial index by the dorsalis pedis is 0.44. The left ankle brachial index by the posterior tibial artery is 0.95. The left ankle brachial index by the dorsalis pedis is 0.81. The left digital-brachial index is 0.52. VL/Ankle Brachial Index Interpretation Summary Right LAST 0.44, severe arterial insufficiency. Doppler/PVR waveforms of the rig ht ankle severely diminished at rest. Left LAST 0.95, mild arterial insufficiency. Doppler/PVR waveforms of the left a nkle normal at rest. Ordering Physician: Suzan Fernandez Referring Physician: Efraín Archer Performed By: Angelica Bryant RDCS/RVT
== END | disposition home or self-care (01) ==
PROVIDERS: PCP Family Medicine; Referring Provider Physician Assistant; Visit Provider Physician Assistant
DX: Z48.812 Encounter for surgical aftercare following surgery on the circulatory system (principal)
CPT/HCPCS: 93922; 93926

== ENCOUNTER → 2025-02-12 | Outpatient (CLI) | payer MEDICARE, SELFPAY ==
--- NOTE | 2025-02-12 08:50 | CDU_ITS ---
Reason For Study Reason For Study: Rt ICA Stenosis Rt. Velocities/BP Lt. Velocities/BP Prox CCA 172/24 cm/sec. Prox CCA 67/17 cm/sec. Mid CCA 131/23 cm/sec. Mid CCA 169/43 cm/sec. Dist CCA 106/22 cm/sec. Dist CCA 144/18 cm/sec. Prox ICA 129/27 cm/sec. Prox ICA 108/30 cm/sec. Mid ICA 102/21 cm/sec. Mid ICA 106/25 cm/sec. Dist ICA 138/36 cm/sec. Dist ICA 122/30 cm/sec. Rt. ICA/CCA = 1.1. Lt. ICA/CCA = 0.72. Prox ECA 131/8 cm/sec. Prox ECA 57/6 cm/sec. Rt. Vert. 50/13 cm/sec. Lt. Vert. 78/13 cm/sec. Right Extracranial There is heterogeneous, irregular atherosclerotic plaque noted in the right common carotid artery. There is heterogeneous, irregular atherosclerotic plaque noted in the right internal carotid artery. There is intimal thickening but no significant atherosclerotic plaque noted in the right external carotid artery. Antegrade flow is noted in the right vertebral artery. Left Extracranial There is heterogeneous, irregular atherosclerotic plaque noted in the left common carotid artery. There is intimal thickening but no significant atherosclerotic plaque noted in the left internal carotid artery. There is intimal thickening but no significant atherosclerotic plaque noted in the left external carotid artery. Antegrade flow is noted in the left vertebral artery. Procedure Carotid Duplex 42186. This is a Carotid Duplex examination using B-mode, color flow and specral Doppler. Exam performed in department. VL/Carotid Duplex Ultrasound Interpretation Summary Moderate (50-69%) stenosis right extracranial internal carotid. Mild (<50%) stenosis left extracranial internal carotid. Patent and antegrade vertebrals bilaterally. Ordering Physician: Suzan Fernandez Referring Physician: Efraín Archer Performed By: Angelica Bryant, MUNA, RVT
== END | disposition home or self-care (01) ==
LOC: CVS 08:46
PROVIDERS: PCP Family Medicine; Referring Provider Physician Assistant; Visit Provider Physician Assistant
DX: I65.21 Occlusion and stenosis of right carotid artery (principal)
CPT/HCPCS: 93880

== ENCOUNTER → 2025-04-30 | Outpatient (CLI) | payer MEDICARE, SELFPAY ==
--- NOTE | 2025-04-30 09:39 | ART_ITS ---
Reason For Study Reason For Study: HX RLE BPG Procedure A bilateral lower extremity continuous wave Doppler with analog waveform analysis and ankle brachial indexes. Left Segmental Pressures Left brachial= 130mmHg. Left posterior tibial artery = 130mmHg. Left dorsalis pedis artery = 121mmHg. Left digit = 67 mmHg. The left posterior tibial artery waveforms are triphasic. The left dorsalis pedis waveforms are triphasic. Right Segmental Pressures Right brachial= 126mmHg. Right posterior tibial artery = 64mmHg. Right dorsalis pedis artery = 89mmHg. The right posterior tibial artery waveforms are monophasic. The right dorsalis pedis waveforms are monophasic. Indices The right ankle brachial index by the posterior tibial artery is 0.49. The right ankle brachial index by the dorsalis pedis is 0.68. The left ankle brachial index by the posterior tibial artery is 1.00. The left ankle brachial index by the dorsalis pedis is 0.93. The left digital-brachial index is 0.52. VL/Ankle Brachial Index Interpretation Summary Right LAST 0.68, moderate arterial insufficiency. Doppler/PVR waveforms of the r ight ankle moderately diminished at rest. Left LAST 1.0, normal. Doppler/PVR waveforms of the left ankle normal at rest. T BI diminished, pedal/digit disease vs spasm. Ordering Physician: Suzan Fernandez Performed By: Khari Graham RVT
--- NOTE | 2025-04-30 09:39 | ADUL_ITS ---
Reason For Study Reason For Study: S/P Rt EIA stent/angioplasty Right Velocities Ext. Iliac Artery, dist = 163.3 cm./sec. Common Femoral Artery, mid = 141.8 cm./sec. Rt Fem - Pop A BPG, Unable to visualize. Supf Femoral Artery, dist. = 68.6 cm./sec. Profunda Femoral Artery = 148.4 cm./sec. Popliteal Artery, prox. = 74.4 cm./sec. Popliteal Artery, mid = 64.6 cm./sec. Popliteal Artery, dist = 76.9 cm./sec. Post. Tibial Artery, prox = 33.6 cm./sec. Post. Tibial Artery, mid = 8.5 cm./sec. Post. Tibial Artery, dist = 9.7 cm./sec. Peroneal Artery, prox = 31 cm./sec. Peroneal Artery, mid = 37.1 cm./sec. Peroneal Artery,dist = 21 cm./sec. Ant. Tibial Artery, prox = 31 cm./sec. Ant. Tibial Artery, mid = 37.1 cm./sec. Ant. Tibial Artery, dist = 36.6 cm./sec. Procedure Exam performed in department. /US Art Duplex Unilat Lower Ext Interpretation Summary Patent right distal external iliac artery stent and common femoral/profunda end arterectomy with normal velocities and no evidence of stenosis. Known occlusion of superficial femoral artery and prior bypass graft. Ordering Physician: Suzan Fernandez Referring Physician: Efraín Archer Performed By: Rere Miller RVT
== END | disposition home or self-care (01) ==
LOC: CVS 09:37
PROVIDERS: PCP Family Medicine; Referring Provider Physician Assistant; Visit Provider Physician Assistant
DX: Z48.812 Encounter for surgical aftercare following surgery on the circulatory system (principal)
CPT/HCPCS: 93922; 93926

== ENCOUNTER → 2025-05-14 | Outpatient (CLI) | payer MEDICARE, SELFPAY ==
--- NOTE | 2025-05-14 10:12 | MRI_ITS ---
PROCEDURE: MRI/Upper Ext Joint Only(Routine)
== END | disposition home or self-care (01) ==
PROVIDERS: PCP Family Medicine; Referring Provider Orthopaedic Surgery; Visit Provider Orthopaedic Surgery
DX: S43.492A Other sprain of left shoulder joint, initial encounter (principal); X58.XXXA Exposure to other specified factors, initial encounter
CPT/HCPCS: 73221

== ENCOUNTER → 2025-06-08 | Outpatient (CLI) | payer MEDICARE, SELFPAY ==
[2025-06-08 13:00] LABS: Creatinine, Urine (random) 145.00 mg/dL (28.00-217.00); Microalbumin,Random Urine < 12.0 mg/L (<20 mg/L)
== END | disposition home or self-care (01) ==
PROVIDERS: PCP Family Medicine; Visit Provider Family Medicine
DX: E11.649 Type 2 diabetes mellitus with hypoglycemia without coma (principal)
CPT/HCPCS: 82043; 82570